=== PATIENT | female | born 1960 | race Caucasian/White ===

== ENCOUNTER 2021-02-05 22:31 | Inpatient (IN) | payer BC, SELFPAY ==
[2021-02-06 01:04] VITALS: BP 165/93; PULSE 90; RESP 16; TEMP 36.3; O2SAT 100
[2021-02-06] MEDS: hydrOXYzine HCL 50 MG TABLET PO ×2 (01:07→09:04)
[2021-02-06] MEDS: diphenhydrAMINE HCL 25 MG TABLET PO (01:07)
[2021-02-06] MEDS: traZODone HCL 50 MG TABLET PO (01:07)
--- NOTE | 2021-02-06 01:47 | PC.ADMIT ---
PT arrived to unit at 22:42 on previous shift. PT is a 60 year old Armenian speaking, Swazi female, who came to this unit from [facility], for increasing anxiety and depression. PT signed a CV before arriving to unit. PT recently discharged (01/21/21)from [facility]. PT oriented to unit and staff, admission assessment completed. MD completed admission orders and medications. PT reports anxiety /10 and depression 8/10, PT states, I am very sick. PT has past medical history of HTN, hponatremia, hypokalcemia, hypercholesterolemia, back surgery and chronic pain. PT given HS meds and prn Atarax and is currently resting with eyes close.
[2021-02-06 06:15] VITALS: BP 156/78; PULSE 80; RESP 16; TEMP 36.1; O2SAT 100
[2021-02-06] MEDS: busPIRone HCl 10 MG TABLET PO (09:04)
[2021-02-06] MEDS: Aspirin Enteric Coated 81 MG TABLET.DR PO (09:04)
[2021-02-06] MEDS: busPIRone HCl 5 MG TABLET PO (09:04)
[2021-02-06 09:05] VITALS: BP 156/78; PULSE 80
[2021-02-06] MEDS: amLODIPine Besylate 5 MG TABLET PO (09:05)
[2021-02-06] MEDS: Atorvastatin Calcium 10 MG TABLET PO (09:05)
[2021-02-06] MEDS: Folic Acid 1 MG TABLET PO (09:05)
[2021-02-06] MEDS: Thiamine HCL 100 MG TABLET PO (09:05)
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
[2021-02-06 16:01] VITALS: BP 130/72; PULSE 89
[2021-02-06] MEDS: cloNIDine HCL 0.1 MG TABLET PO ×2 (16:01→20:45)
[2021-02-06 16:12] VITALS: BP 130/72; PULSE 89; RESP 18; TEMP 36.7; O2SAT 100
--- NOTE | 2021-02-06 17:00 | HO.HSGERICON ---
History of Present Illness Data of Consult Service Date: 02/06/21 Requesting physician: Lowell Hernandez Primary Care Provider: Unknown Physician HPI Reason for consult: outside/direct admission H&P This is a 60 year old female who was transferred from [facility] for management of anxiety and depression. The hospitalists were asked to see her in consultation for routine medical evaluation. She has no specific complaints at this time. She is asking only for a hair tie. Review of Systems Review of Systems: Yes all other systems are reviewed and are negative Constitutional: Constitutional: Denies chills and Denies fever(s) Cardiovascular: Cardiovascular: Denies chest pain Respiratory: Respiratory: Denies cough Gastrointestinal: Gastrointestinal: Denies abdominal pain [facility] Medical History (Updated 02/06/21 @ 17:14 by NOREEN Van) HLD (hyperlipidemia) HTN (hypertension) Hyponatremia Spinal stenosis Functional capacity: independent ambulation Family History Mother CVA (cerebral vascular accident) Surgical History H/O cervical spine surgery Social History (Updated 02/06/21 @ 17:11 by NOREEN Van) Household Members: Spouse and Children Housing: Apartment Do you presently have visiting nurse or other home services: No Alcohol intake: never Patient Tobacco Use Status: Former Tobacco user Tobacco use type: Cigarette Smoked in Last 30 Days: No e-Cigarette/Vaping Use: Never Used Patient Interested in Nicotine Replacement: No Patient Given Instructions on How to Stop Smoking: No Second Hand Smoke Exposure: No Use of substances other than those prescribed or required for medical reasons: No Currently Displaying Signs/Symptoms of Drug Intoxication Withdrawal: No Any prior treatment program specific to substance use: No Have you been hit, kicked, punched, or otherwise hurt by someone within the past year? If so, by whom?: No Do you feel safe in your current relationship?: Yes Is there a partner from a previous relationship who is making you feel unsafe now?: No Are you made to feel afraid or neglected: No Spiritual Healthcare Practices: NA Moravian Healthcare Practices: Buddhist Cultural Healthcare Practices: NA Advance Directives: No Advance Directives Information Provided: Yes Do you have thoughts of harming others: None Do you have a plan to hurt others: No Plan Recently lost weight without trying: Yes How much weight loss: 2-13 pounds Eating poorly because of decreased appetite: Yes Nutrition screen score: 4 Nutrition Risks: Poor intake 0-25% >4 days Patient : No : No Poor oral hygiene: No service: No Sexual orientation: Did not discuss Meds Allergies Allergy/AdvReac Type Severity Reaction Status Date / Time citalopram AdvReac Unknown Verified 02/06/21 00:01 Active Medications: Current Medications Acetaminophen (Acetaminophen 325 Mg Tablet) 650 mg PO Q6H PRN PRN Reason: Headache/Pain Mild Scale (1-3) Al Hydroxide/Mg Hydroxide (Magnesium Hydrox/Alum Hydrox 30 Ml Oral.Susp) 30 ml PO Q6H PRN PRN Reason: Heartburn/Nausea Amlodipine Besylate (Amlodipine Besylate 5 Mg Tablet) 5 mg PO DAILY [facility]; Protocol Last Admin: 02/06/21 09:05 Dose: 5 mg Documented by: Aspirin (Aspirin Enteric Coated 81 Mg Tablet.) 81 mg PO DAILY [facility] Last Admin: 02/06/21 09:04 Dose: 81 mg Documented by: Atorvastatin Calcium (Atorvastatin Calcium 10 Mg Tablet) 10 mg PO DAILY [facility] Last Admin: 02/06/21 09:05 Dose: 10 mg Documented by: Clonidine HCl (Clonidine Hcl 0.1 Mg Tablet) 0.1 mg PO BEDTIME [facility]; Protocol Clonidine HCl (Clonidine Hcl 0.1 Mg Tablet) 0.1 mg PO TID PRN; Protocol PRN Reason: moderate anxiety Last Admin: 02/06/21 16:01 Dose: 0.1 mg Documented by: Folic Acid (Folic Acid 1 Mg Tablet) 1 mg PO DAILY [facility] Last Admin: 02/06/21 09:05 Dose: 1 mg Documented by: Magnesium Hydroxide (Milk Of Magnesia 30 Ml Oral.Susp) 30 ml PO DAILY PRN PRN Reason: Constipation Thiamine HCl (Thiamine Hcl 100 Mg Tablet) 100 mg PO DAILY [facility] Last Admin: 02/06/21 09:05 Dose: 100 mg Documented by: Trazodone HCl (Trazodone Hcl 100 Mg Tablet) 100 mg PO BEDTIME [facility] Trazodone HCl (Trazodone Hcl 50 Mg Tablet) 50 mg PO BEDTIME PRN PRN Reason: continued insomnia Home Medications Medication Instructions Recorded Confirmed Last Taken Type amlodipine 5 mg tablet 5 mg PO DAILY 02/06/21 02/06/21 02/05/21 11:41 History aspirin 81 mg tablet,delayed 1 tab PO DAILY 02/06/21 02/06/21 Unknown History release atorvastatin 10 mg tablet 10 mg PO DAILY 02/06/21 02/06/21 Unknown History buspirone 10 mg tablet 10 mg PO BID 02/06/21 02/06/21 02/05/21 11:41 History 10 mg buspirone 5 mg tablet 1 tab PO BID 02/06/21 02/06/21 Unknown History diphenhydramine HCl 25 mg capsule 25 mg PO BEDTIME PRN 02/06/21 02/06/21 02/05/21 05:57 History (Benadryl) folic acid 1 mg tablet 1 tab PO DAILY 02/06/21 02/06/21 Unknown History hydroxyzine pamoate 50 mg capsule 50 mg PO BID PRN 02/06/21 02/06/21 Unknown History thiamine mononitrate (vit B1) 100 100 mg PO DAILY 02/06/21 02/06/21 Unknown History mg tablet trazodone 50 mg tablet 1 tab PO BEDTIME 02/06/21 02/06/21 Unknown History Assessment and Plan (1) HTN (hypertension): Status: Acute This is a 60-year-old female with history of hypertension, hyperlipidemia, spinal stenosis who presents to from [facility] for further management of anxiety and depression Hypertension Blood pressure under adequate control Continue home dose of amlodipine Hyperlipidemia Continue Lipitor h/o hyponatremia pt reports h/o hyponatremia r/t previous SSRI use. unclear how long ago can consider baseline BMP. would check BMP if starting any medication that can cause hyponatremia There are no active medical conditions at this time. Than you for allowing us to participate in the care of this patient. attending. Dr. Claudio Physical Exam Vital Signs: Last Vital Signs Temp 98.1 F 02/06/21 16:12 Pulse 89 02/06/21 16:12 Resp 18 02/06/21 16:12 BP 130/72 02/06/21 16:12 Pulse Ox 100 02/06/21 16:12 Const General: cooperative, comfortable, no acute distress, alert and awake Nutritional Appearance: well nourished Orientation/consciousness: patient oriented x3 HENMT Head: Yes normocephalic and Yes atraumatic Eyes Sclerae: sclerae normal Pupils: Equal, round and reactive pupils present Resp Effort & Inspection: normal respiratory effort and no respiratory distress Auscultation: clear to auscultation bilaterally Cardio Rate: regular rate Rhythm: regular rhythm GI Palpation (GI): Soft to palpation and nontender Neuro General: patient oriented x3 Cranial nerves: Yes CN's II-XII intact bilaterally, Yes Equal, round and reactive pupils present and Yes Bilaterally intact EOM present Extrem Other: Able to move all 4 extremities spontaneously. No lower extremity edema
[2021-02-06 20:20] VITALS: BP 125/58; PULSE 74; RESP 18; TEMP 36.2; O2SAT 97
[2021-02-06] MEDS: Mirtazapine 7.5 MG TABLET PO (20:45)
[2021-02-06] MEDS: traZODone HCL 100 MG TABLET PO (20:46)
[2021-02-07 06:00] VITALS: BP 101/55; PULSE 61; RESP 16; TEMP 36.5; O2SAT 99
[2021-02-07 08:16] VITALS: BP 101/55; PULSE 61
[2021-02-07] MEDS: Thiamine HCL 100 MG TABLET PO (08:16)
[2021-02-07] MEDS: amLODIPine Besylate 5 MG TABLET PO (08:16)
[2021-02-07] MEDS: Atorvastatin Calcium 10 MG TABLET PO (08:16)
[2021-02-07] MEDS: Aspirin Enteric Coated 81 MG TABLET.DR PO (08:16)
[2021-02-07] MEDS: Folic Acid 1 MG TABLET PO (08:17)
[2021-02-07 08:55] LABS: Anion Gap 15 (12-20); Carbon Dioxide 25 mmol/L (22-29); Chloride 84 mmol/L (96-108); Potassium 3.3 mmol/L (3.3-5.1); Sodium 121 mmol/L (135-145)
[2021-02-07 08:58] LABS: TSH reflex Free T4 1.34 uIU/mL (0.32-4.0)
[2021-02-07 09:34] VITALS: BP 113/53; PULSE 82; RESP 14; O2SAT 100
--- NOTE | 2021-02-07 10:06 | HO.PSYCHPN ---
Subjective Subjective Date of Service: 02/07/21 Reason For Visit: Major Depressive Disorder, PTSD, Recurrent episode Interim History: Patient seen and discussed with team. Patient evaluated this morning and upon interview she reports she feels ?lightheaded and confused,? also says she feels ?weak.? BP 113/53 this morning. Able to ambulate without assistance, no falls. Says she has felt this way since waking up. She reports she slept last night with medication. She was able to eat breakfast, drinking fluids. Of note, Na decreased from 129 on admission to 121, pt has hx of hyponatremia, which in past had been attributed to celexa trial. Says she still has sx of anxiety and depression. She denies AH, but endorses VH, saying ?why do i always see the evil space? Satan and all that?? She denies hx of VH and says this started on admission, prior to recent med changes. She describes herself as yarsani person. Says she feels safe here, denies SI/SIB but say ?I dont wanna be alone in my room? because ?its scary and boring.? In the milieu, patient is safe and appropriate in behavior. Denies irritability or assaultive ideation. Says she feels safe. Medication Compliance: Yes Side effects from medications: Yes Attending Groups: Yes Review of Systems Acute medical concerns: Yes Medical Review of Systems: changed Mental Status Exam Mental Status Exam Narrative: Pt is alert and oriented; behavior is cooperative, friendly and calm; patient is not in distress; dressed in hospital gown with unkempt hair but adequate hygiene; mood is described as weak though affect currently calm; eye contact appropriate; Speech is normal rate, volume and prosody and not pressured; no psychomotor agitation/retardation present; thought process is organized, linear and goal directed; Thought content is on somatic sx, says she feels confused and clouded. Endorsing new sx of VH. otherwise no delusional content, paranoid ideations or grandiosity; denies SI; no HI. Denies AH.? Patients insight and judgment appear intact. Diagnostics Vital Signs (24Hr): Vital Signs - 24 hr 02/06/21 16:01 02/06/21 16:12 02/06/21 20:20 Temperature 98.1 F 97.2 F Pulse Rate 89 89 74 Respiratory Rate 18 18 Blood Pressure 130/72 130/72 125/58 L Pulse Oximetry 100 97 02/07/21 06:00 02/07/21 08:16 02/07/21 09:34 Temperature 97.7 F Pulse Rate 61 61 82 Respiratory Rate 16 14 Blood Pressure 101/55 L 101/55 L 113/53 L Pulse Oximetry 99 100 Labs Results: 02/07/21 12:53 Labs: Laboratory Results - last 48 hr 02/07/21 02/07/21 02/07/21 07:54 07:54 12:53 Sodium 121 L 119 L* Potassium 3.3 3.1 L Chloride 84 L 82 L Carbon Dioxide 25 23 Anion Gap 15 17 BUN 15 Creatinine 0.86 Estim Creat Clear Calc TNP Estimated GFR > 60 Random Glucose 147 H Osmolality Calcium 9.6 TSH 1.34 1.45 02/07/21 12:53 Sodium Potassium Chloride Carbon Dioxide Anion Gap BUN Creatinine Estim Creat Clear Calc Estimated GFR Random Glucose Osmolality 249 L Calcium TSH Medications Allergies Allergies Allergy/AdvReac Type Severity Reaction Status Date / Time citalopram AdvReac Unknown Verified 02/06/21 00:01 Assessment & Plan Assessment & Plan (1) Hyponatremia: Status: Acute Code(s): E87.1 - Hypo-osmolality and hyponatremia (2) LORENZO (generalized anxiety disorder): Status: Acute Code(s): F41.1 - Generalized anxiety disorder Assessment and Plan: Patient is a 60-year-old female with history of severe anxiety, formally well treated with citalopram until it caused hyponatremia, who now presents with extreme anxiety triggering SI.? Patient reports that she was doing quite well on citalopram on until this spring she got hyponatremia and hypokalemia which required hospitalization; she got it again and it was discovered to be caused by citalopram.? -patient current presentation is consistent with her long history of severe anxiety/LORENZO which was well treated with SSRI until it was no longer an option given to repeat episodes of hyponatremia/hypokalemia -Although patient has gone the past 3 days with little to no sleep, it seems most likely due to her anxiety and not due to a manic episode. She is calm and cooperative on the unit and does not have any manic symptoms at all; She interacts with a calm demeanor and her speech is normal volume, prosody and rate, not pressured at all; she is with logical, linear and organized speech and behavior; no grandiosity or delusional content; no AVH; image of devil is only when she closes her eyes at night and patient has insight and judgment to know that this is just her own visual image.? Although she has a history of what sounds like a manic episode this past spring, it coincides with her electrolyte imbalance for which she was hospitalized.? Furthermore patient was on an SSRI without any triggered manic events. -patient's anxiety has gotten to a point where it is triggering suicidal thoughts PLAN: Patient on CV Q 15 minute checks HYPONATREMIA: -patient has mild hyponatremia; will recheck labs in the morning; will also recheck a couple days after medication adjustments ?ANXIETY: -Will start patient on mirtazapine 7.5 mg for anxiety and help with insomnia; account underwriter discussed specific case with clinical pharmacist who agrees that mirtazapine is the least likely of viable options to cause hyponatremia; TCAs less preferred given anticholinergic side-effects -RECHECK lytes in AM -will start clonidine 0.1 mg t.i.d. p.r.n. for daytime anxiety and 0.1 mg at bedtime scheduled for nighttime insomnia/anxiety; patient blood pressures are either within normal limits or elevated -will increase trazodone to 100 mg with a 50 mg p.r.n.; patient reports that trazodone 50 mg has not been helpful and she is desperate for sleep. -will discontinue BuSpar; patient does not want it and is worried it is making her mouth dry -will discontinue hydroxyzine/Benadryl which both are likely causing patient's dry mouth -patient may have done well on Latuda in the past and this can remain an option Weekend Coverage: pt presenting with new sx of confusion, weakness, fatigue. Also reports nausea. Consulted with hospitalist and will transfer to [facility] for management of hyponatremia. Pt reported drinking 4 L of water on 02/06 due to dry mouth. Will discontinue clonidine 0.1 mg QHS and remeron 7.5 mg QHS per hospitalist recommendation. Will continue clonidine 0.1 mg TID PRN for anxiety. Will start seroquel 25 mg TID PRN for breakthrough anxiety. Will continue trazodone 100 mg QHS. I spent minutes with the patient and/or on the patient floor today, greater than?50% of which was spent counseling/coordinating care. Reason for contiued inpatient stay Substantial Risk for: harm to self and med/psych decompensation
--- NOTE | 2021-02-07 12:16 | PM.PSYDC ---
DS: Providers Provider Date of Service: 02/07/21 Date of admission: 02/05/21 22:31 Date of discharge: 02/07/21 Primary care physician: Unknown Physician Admitting clinician: Lowell Hernandez Attending physician on admission: Lowell Hernandez Consults: 02/07/21 13:17 Consult to Nephrology Routine Consulting Provider: Sergio Stephenson Reason for consultation: hyponatremia, sodium 121 Has provider been notified: No 02/07/21 13:33 Consult to Psychiatry Routine Consulting Provider: Psych Covering Reason for consultation: anxiety,depression Has provider been notified: No Attending physician on discharge: Muna Riley Discharging clinician: Muna Riley DS: Diagnosis Discharge Diagnosis (1) Hyponatremia: Start date: 02/07/21 Status: Acute (2) LORENZO (generalized anxiety disorder): Start date: 02/05/21 Status: Acute DS: Medications Discharge Medications Home Medications: Home Medications Medication Instructions Recorded Confirmed amlodipine 5 mg tablet 5 mg PO DAILY 02/06/21 02/07/21 aspirin 81 mg tablet,delayed 1 tab PO DAILY 02/06/21 02/07/21 release atorvastatin 10 mg tablet 10 mg PO DAILY 02/06/21 02/07/21 buspirone 10 mg tablet 10 mg PO BID 02/06/21 02/07/21 buspirone 5 mg tablet 1 tab PO BID 02/06/21 02/07/21 diphenhydramine HCl 25 mg capsule 25 mg PO BEDTIME PRN 02/06/21 02/07/21 (Benadryl) folic acid 1 mg tablet 1 tab PO DAILY 02/06/21 02/07/21 hydroxyzine pamoate 50 mg capsule 50 mg PO BID PRN 02/06/21 02/07/21 thiamine mononitrate (vit B1) 100 100 mg PO DAILY 02/06/21 02/07/21 mg tablet trazodone 50 mg tablet 1 tab PO BEDTIME 02/06/21 02/07/21 Mental Status Exam Mental Status Exam Narrative: Pt is alert and oriented; behavior is cooperative, friendly and calm; patient is not in distress; dressed in hospital gown with unkempt hair but adequate hygiene; mood is described as weak though affect currently calm; eye contact appropriate; Speech is normal rate, volume and prosody and not pressured; no psychomotor agitation/retardation present; thought process is organized, linear and goal directed; Thought content is on somatic sx, says she feels confused and clouded. Endorsing sx of VH at bedtime or when she closes her eyes. otherwise no delusional content, paranoid ideations or grandiosity; denies SI; no HI. Denies AH.? Patients insight and judgment appear intact. Data Data Completed and Pending Completed studies during hospitalization [Text1]: 02/07/21 02/07/21 02/07/21 07:54 07:54 12:53 Sodium 121 L 119 L* Potassium 3.3 3.1 L Chloride 84 L 82 L Carbon Dioxide 25 23 Anion Gap 15 17 BUN 15 Creatinine 0.86 Estim Creat Clear Calc TNP Estimated GFR > 60 Random Glucose 147 H Osmolality Calcium 9.6 TSH 1.34 1.45 02/07/21 12:53 Sodium Potassium Chloride Carbon Dioxide Anion Gap BUN Creatinine Estim Creat Clear Calc Estimated GFR Random Glucose Osmolality 249 L Calcium TSH DS: Summary Hospital Course Hospital Course: Patient is a 60-year-old female who was admitted to [facility] from [facility] on 02/06/21 with sx of extreme anxiety triggering SI.?She has past medical hx of LORENZO, PTSD, HTN, hyperlipidemia, and hyponatremia. Patient reports that she was doing quite well on citalopram until this spring when she got hyponatremia and hypokalemia, which required hospitalization; she got it again and it was discovered to be caused by citalopram.?Per [facility] ED eval, pt reported hyposomnia x 3 days, her OP psychiatrist had discontinued her ativan, seroquel, and hydroxyzine 4 days prior and started her on buspar. She reported worsening anxiety, SI, and VH. Per psych H&P, patient's current presentation is consistent with her long history of severe anxiety/LORENZO which was well treated with SSRI until it was no longer an option given to repeat episodes of hyponatremia/hypokalemia. No hx of manic or hypomanic episodes endorsed and poor sleep appears to be a function of anxiety. Pt was calm and cooperative on the unit, without manic symptoms at all; She interacts with a calm demeanor and her speech is normal volume, prosody and rate, not pressured at all; she is with logical, linear and organized speech and behavior; no grandiosity or delusional content; no AVH; image of linette is only when she closes her eyes at night and patient has insight and judgment to know that this is just her own visual image.?On admission, pt's labs from [facility] ED on 02/05/21 showed sodium level of 129, potassium level 3.5, chloride level 92, carbon dioxide level 28, creatinine 0.69, BUN 6. On admission, pt was started on remeron 7.5 mg QHS, clonidine 0.1 mg QHS and 0.1 mg TID PRN for anxiety, and trazodone was increased to 100 mg QHS. Buspar was discontinued. CMP was re-ordered for morning of 04/10/20, which showed sodium level of 121. Pt was also presenting with new onset of confusion, weakness, fatigue, and nausea. Consulted with hospitalist who recommended repeat CMP and transfer to [facility] for management of hyponatremia. Pt reported drinking 4 L of water on 02/06 due to dry mouth. Pt's clonidine 0.1 mg QHS and remeron 7.5 mg QHS were discontinued per hospitalist recommendation. Will continue clonidine 0.1 mg TID PRN for anxiety. Will start seroquel 25 mg TID PRN for breakthrough anxiety. Will continue trazodone 100 mg QHS with repeat dose of 50 mg QHS 1x for insomnia. Status at Discharge Cognitive/behavioral status at discharge: Pt reporting increased confusion, impaired memory and concentration. Functional status at discharge: independent ambulation Overall status at discharge: patient is not back to baseline Time Spent with Patient Time attestation: Total time spent providing and/or coordinating discharge services: Time spent: Less than 30 minutes Discharge Plan Discharge Patient Disposition: Xfer Acute Care Hospital Discharge Diagnosis: LORENZO Referrals: Physician,Unknown J [Primary Care Provider] - 1 Week Discharge Medications: Continued buspirone 5 mg tablet 1 tab PO BID RF: 0 trazodone 50 mg tablet 1 tab PO BEDTIME RF: 0 aspirin 81 mg tablet,delayed release (DR/EC) 1 tab PO DAILY RF: 0 folic acid 1 mg tablet 1 tab PO DAILY RF: 0 atorvastatin 10 mg Tablet 10 mg PO DAILY RF: 0 hydroxyzine pamoate 50 mg Capsule 50 mg PO BID PRN (Reason: Anxiety) RF: 0 amlodipine 5 mg Tablet 5 mg PO DAILY RF: 0 diphenhydramine HCl [Benadryl] 25 mg Capsule 25 mg PO BEDTIME PRN (Reason: Anxiety) RF: 0 buspirone 10 mg Tablet 10 mg PO BID RF: 0 thiamine mononitrate (vit B1) 100 mg Tablet 100 mg PO DAILY RF: 0 Discharge Orders: Discharge Order (Routine); Ordered 02/07/21 Ordered By: Muna Riley Activity on Discharge: As tolerated Stand Alone Forms: Patient Portal Discharge page Care Plan Goals: Continue with med management Health Concerns: hyponatremia Plan of Treatment: med management, fluid management Assessment: Pt with LORENZO, transferred to [facility] for hyponatremia Discharge Date/Time: 02/07/21 13:34
--- NOTE | 2021-02-07 13:19 | PM.IMHP ---
History of Present Illness Date of Service: 02/07/21 Attending physician on admission: Alhaji Gutiérrez Chief Complaint: hyponatrema, weakness This is a 60-year-old female with history of hypertension, hyperlipidemia, anxiety admitted to for inpatient psychiatric treatment of anxiety and depression. Patient was seen yesterday in consultation a mackenzie for routine medical evaluation. She reported history of hyponatremia in the past secondary to SSRI use. Today routine BMP was checked in her sodium level was noted to be 121. Today she reports she is feeling weak and confused. She has some nausea. For this reason the decision was made to admit her to the medical floor for management of hyponatremia. She reports that yesterday she was feeling thirsty and thinks she she may have had 4 of the acosta pitchers of water. Review of Systems Review of Systems: Yes all other systems are reviewed and are negative Constitutional: Constitutional: Denies chills, Denies fever(s) and Reports lethargy Cardiovascular: Cardiovascular: Denies chest pain Respiratory: Respiratory: Denies cough Gastrointestinal: Gastrointestinal: Denies abdominal pain, Reports nausea and Denies vomiting [facility] Medical History LORENZO (generalized anxiety disorder) HLD (hyperlipidemia) HTN (hypertension) Hyponatremia Spinal stenosis Functional capacity: independent ambulation Family History Mother CVA (cerebral vascular accident) Surgical History H/O cervical spine surgery Social History Household Members: Spouse and Children Housing: Apartment Do you presently have visiting nurse or other home services: No Alcohol intake: never Patient Tobacco Use Status: Former Tobacco user Tobacco use type: Cigarette e-Cigarette/Vaping Use: Never Used Second Hand Smoke Exposure: No service: No Sexual orientation: Did not discuss Meds Allergies Allergy/AdvReac Type Severity Reaction Status Date / Time citalopram AdvReac Unknown Verified 02/06/21 00:01 Active Medications: Current Medications Acetaminophen (Acetaminophen 325 Mg Tablet) 650 mg PO Q6H PRN PRN Reason: Headache/Pain Mild Scale (1-3) Al Hydroxide/Mg Hydroxide (Magnesium Hydrox/Alum Hydrox 30 Ml Oral.Susp) 30 ml PO Q6H PRN PRN Reason: Heartburn/Nausea Amlodipine Besylate (Amlodipine Besylate 5 Mg Tablet) 5 mg PO DAILY [facility]; Protocol Last Admin: 02/07/21 08:16 Dose: 5 mg Documented by: Aspirin (Aspirin Enteric Coated 81 Mg Tablet.) 81 mg PO DAILY [facility] Last Admin: 02/07/21 08:16 Dose: 81 mg Documented by: Atorvastatin Calcium (Atorvastatin Calcium 10 Mg Tablet) 10 mg PO DAILY [facility] Last Admin: 02/07/21 08:16 Dose: 10 mg Documented by: Clonidine HCl (Clonidine Hcl 0.1 Mg Tablet) 0.1 mg PO TID PRN; Protocol PRN Reason: moderate anxiety Last Admin: 02/06/21 16:01 Dose: 0.1 mg Documented by: Docusate Sodium (Docusate Sodium 100 Mg Capsule) 100 mg PO DAILY PRN PRN Reason: Constipation Enoxaparin Sodium (Enoxaparin Sodium 40 Mg/0.4 Ml Syringe) 40 mg SUBCUT Q24H [facility] Folic Acid (Folic Acid 1 Mg Tablet) 1 mg PO DAILY [facility] Last Admin: 02/07/21 08:17 Dose: 1 mg Documented by: Magnesium Hydroxide (Milk Of Magnesia 30 Ml Oral.Susp) 30 ml PO DAILY PRN PRN Reason: Constipation Mirtazapine (Mirtazapine 7.5 Mg Tablet) 7.5 mg PO BEDTIME [facility] Last Admin: 02/06/21 20:45 Dose: 7.5 mg Documented by: Sodium Chloride (0.9 % Sodium Chloride Flush 3 Ml Syringe) [facility] Thiamine HCl (Thiamine Hcl 100 Mg Tablet) 100 mg PO DAILY [facility] Last Admin: 02/07/21 08:16 Dose: 100 mg Documented by: Trazodone HCl (Trazodone Hcl 100 Mg Tablet) 100 mg PO BEDTIME [facility] Last Admin: 02/06/21 20:46 Dose: 100 mg Documented by: Trazodone HCl (Trazodone Hcl 50 Mg Tablet) 50 mg PO BEDTIME PRN PRN Reason: continued insomnia Home Medications Medication Instructions Recorded Confirmed Last Taken Type amlodipine 5 mg tablet 5 mg PO DAILY 02/06/21 02/06/21 02/05/21 11:41 History aspirin 81 mg tablet,delayed 1 tab PO DAILY 02/06/21 02/06/21 Unknown History release atorvastatin 10 mg tablet 10 mg PO DAILY 02/06/21 02/06/21 Unknown History buspirone 10 mg tablet 10 mg PO BID 02/06/21 02/06/21 02/05/21 11:41 History 10 mg buspirone 5 mg tablet 1 tab PO BID 02/06/21 02/06/21 Unknown History diphenhydramine HCl 25 mg capsule 25 mg PO BEDTIME PRN 02/06/21 02/06/21 02/05/21 05:57 History (Benadryl) folic acid 1 mg tablet 1 tab PO DAILY 02/06/21 02/06/21 Unknown History hydroxyzine pamoate 50 mg capsule 50 mg PO BID PRN 02/06/21 02/06/21 Unknown History thiamine mononitrate (vit B1) 100 100 mg PO DAILY 02/06/21 02/06/21 Unknown History mg tablet trazodone 50 mg tablet 1 tab PO BEDTIME 02/06/21 02/06/21 Unknown History Physical Exam Vital Signs and Narrative: Vital Signs: Last Vital Signs Temp 97.7 F 02/07/21 06:00 Pulse 82 02/07/21 09:34 Resp 14 02/07/21 09:34 BP 113/53 L 02/07/21 09:34 Pulse Ox 100 02/07/21 09:34 Const: General: cooperative, comfortable, no acute distress, awake and Physically active Nutritional Appearance: well nourished HENMT: Head: Yes normocephalic and Yes atraumatic Mouth: moist mucous membranes Eyes: Sclerae: sclerae normal Resp: Effort & Inspection: normal respiratory effort and no respiratory distress Cardio: Rate: regular rate Rhythm: regular rhythm Neuro: Cranial nerves: Yes CN's II-XII intact bilaterally and Yes Bilaterally intact EOM present Extrem: Other: no leg edema Results Labs CBC and Chem 7: 02/07/21 12:53 Labs: Laboratory Results - last 24 hr 02/07/21 02/07/21 07:54 07:54 Anion Gap 15 TSH 1.34 Assessment and Plan (1) Hyponatremia: Status: Acute This is a 60-year-old female with history of hypertension, hyperlipidemia, history of hyponatremia, just admitted to inpatient psychiatric 4 for management of anxiety depression found to have hyponatremia with sodium of 121 now being transferred to medical floor for further management Hyponatremia, sodium 121 Will repeat basic metabolic profile now Check TSH Check urine studies Nephrology consult Frequent BMP checks Hypertension mood continue current meds from including Quality VTE VTE Risk Level:: Medical - moderate - high VTE Device Contraindication: N/A - Device Ordered VTE Drug Contraindication: N/A - Med Ordered
[2021-02-07 13:38] LABS: Osmolality, Serum 249 mosm/kg (281-305)
[2021-02-07 13:41] LABS: Blood Urea Nitrogen 15 mg/dL (9-16); Calcium 9.6 mg/dL (8.4-10.2); Estimated Glomerular Filt Rate > 60; Glucose Random 147 mg/dL (60-115)
[2021-02-07 13:50] LABS: Thyroid Stimulating Hormone 1.45 uIU/mL (0.32-4.0)
[2021-02-07 14:03] LABS: Anion Gap 17 (12-20); Carbon Dioxide 23 mmol/L (22-29); Chloride 82 mmol/L (96-108); Potassium 3.1 mmol/L (3.3-5.1); Sodium 119 mmol/L (135-145)
[2021-02-07 15:08] VITALS: BP 126/89; PULSE 69; RESP 18; TEMP 36.9; O2SAT 100
--- NOTE | 2021-02-10 12:11 | P.DS_ITS ---
DS: Providers Provider Date of admission: 02/05/21 22:31 Primary care physician: Unknown Physician Consults: 02/07/21 13:17 Consult to Nephrology Routine Consulting Provider: Sergio Stephenson Reason for consultation: hyponatremia, sodium 121 Has provider been notified: No 02/07/21 13:33 Consult to Psychiatry Routine Consulting Provider: Psych Covering Reason for consultation: anxiety,depression Has provider been notified: No DS: Diagnosis Discharge Diagnosis (1) Hyponatremia: Status: Acute (2) LORENZO (generalized anxiety disorder): Status: Acute DS: Summary Time Spent with Patient Time attestation: Total time spent providing and/or coordinating discharge services: Physical Exam Vital Signs: Vital Signs: Last Vital Signs Temp 98.5 F 02/07/21 15:08 Pulse 69 02/07/21 15:08 Resp 18 02/07/21 15:08 BP 126/89 02/07/21 15:08 Pulse Ox 100 02/07/21 15:08 Discharge Plan Discharge Patient Disposition: Replaced By [facility] Discharge Diagnosis: LORENZO Referrals: Physician,Unknown J [Primary Care Provider] - 1 Week Discharge Medications: Continued buspirone 5 mg tablet 1 tab PO BID RF: 0 trazodone 50 mg tablet 1 tab PO BEDTIME RF: 0 aspirin 81 mg tablet,delayed release (DR/EC) 1 tab PO DAILY RF: 0 folic acid 1 mg tablet 1 tab PO DAILY RF: 0 atorvastatin 10 mg Tablet 10 mg PO DAILY RF: 0 hydroxyzine pamoate 50 mg Capsule 50 mg PO BID PRN (Reason: Anxiety) RF: 0 amlodipine 5 mg Tablet 5 mg PO DAILY RF: 0 diphenhydramine HCl [Benadryl] 25 mg Capsule 25 mg PO BEDTIME PRN (Reason: Anxiety) RF: 0 buspirone 10 mg Tablet 10 mg PO BID RF: 0 thiamine mononitrate (vit B1) 100 mg Tablet 100 mg PO DAILY RF: 0 Discharge Orders: Discharge Order (Routine); Ordered 02/07/21 Ordered By: Muna Riley Activity on Discharge: As tolerated Stand Alone Forms: Patient Portal Discharge page Care Plan Goals: Continue with med management Health Concerns: hyponatremia Plan of Treatment: med management, fluid management Assessment: Pt with LORENZO, transferred to [facility] for hyponatremia Discharge Date/Time: 02/07/21 13:34
== END 2021-02-07 13:34 | disposition short-term general hospital (02) | DRG 756 ==
PROVIDERS: Physician Assistant Medical; Admitting Provider Psychiatry & Neurology Psychiatry; Visit Provider Psychiatry & Neurology Psychiatry
DX: F41.1 Generalized anxiety disorder (principal); R45.851 Suicidal ideations; E87.1 Hypo-osmolality and hyponatremia; I10 Essential (primary) hypertension; E78.5 Hyperlipidemia, unspecified; F43.10 Post-traumatic stress disorder, unspecified; Z79.82 Long term (current) use of aspirin; Z79.891 Long term (current) use of opiate analgesic; Z79.899 Other long term (current) drug therapy
CPT/HCPCS: 36415; 80048; 80051; 83930; 84443; Q0163

== ENCOUNTER 2021-02-07 13:15 | Inpatient (IN) | payer BC, SELFPAY ==
--- NOTE | 2021-02-07 13:56 | P.HPHOSP_ITS ---
History of Present Illness Date of Service: 02/07/21 Attending physician on admission: Alhaji Gutiérrez Chief Complaint: weakness, hyponatremia This is a 60-year-old female with history of hypertension, hyperlipidemia, anxiety admitted to for inpatient psychiatric treatment of anxiety and depression.? Patient was seen yesterday in consultation a mackenzie for routine medical evaluation.? She reported history of hyponatremia in the past secondary to SSRI use.? Today routine BMP was checked in her sodium level was noted to be 121.? Today she reports she is feeling weak and confused.? She has some nausea.? For this reason the decision was made to admit her to the medical floor for management of hyponatremia.? She reports that yesterday she was feeling thirsty and thinks she she may have had 4 of the acosta pitchers of water. Review of Systems Review of Systems: Yes all other systems are reviewed and are negative Constitutional: Constitutional: Denies chills, Denies fever(s) and Reports lethargy Cardiovascular: Cardiovascular: Denies chest pain Respiratory: Respiratory: Denies cough Gastrointestinal: Gastrointestinal: Denies abdominal pain and Reports nausea [facility] Medical History LORENZO (generalized anxiety disorder) HLD (hyperlipidemia) HTN (hypertension) Hyponatremia Spinal stenosis Functional capacity: independent ambulation Family History Mother CVA (cerebral vascular accident) Surgical History H/O cervical spine surgery Social History Household Members: Spouse and Children Housing: Apartment Do you presently have visiting nurse or other home services: No Alcohol intake: never Patient Tobacco Use Status: Former Tobacco user Tobacco use type: Cigarette e-Cigarette/Vaping Use: Never Used Second Hand Smoke Exposure: No Advance Directives: No Advance Directives Information Provided: Yes service: No Current occupational status: disabled Sexual orientation: Did not discuss Meds Allergies Allergy/AdvReac Type Severity Reaction Status Date / Time citalopram AdvReac Unknown Verified 02/06/21 00:01 Home Medications Medication Instructions Recorded Confirmed Last Taken Type amlodipine 5 mg tablet 5 mg PO DAILY 02/06/21 02/07/21 02/05/21 11:41 History aspirin 81 mg tablet,delayed 1 tab PO DAILY 02/06/21 02/07/21 Unknown History release atorvastatin 10 mg tablet 10 mg PO DAILY 02/06/21 02/07/21 Unknown History buspirone 10 mg tablet 10 mg PO BID 02/06/21 02/07/21 02/05/21 11:41 History 10 mg buspirone 5 mg tablet 1 tab PO BID 02/06/21 02/07/21 Unknown History diphenhydramine HCl 25 mg capsule 25 mg PO BEDTIME PRN 02/06/21 02/07/21 02/05/21 05:57 History (Benadryl) folic acid 1 mg tablet 1 tab PO DAILY 02/06/21 02/07/21 Unknown History hydroxyzine pamoate 50 mg capsule 50 mg PO BID PRN 02/06/21 02/07/21 Unknown History thiamine mononitrate (vit B1) 100 100 mg PO DAILY 02/06/21 02/07/21 Unknown History mg tablet trazodone 50 mg tablet 1 tab PO BEDTIME 02/06/21 02/07/21 Unknown History Physical Exam Const: Nutritional Appearance: well nourished Orientation/consciousness: patient oriented x3 HENMT: Head: Yes normocephalic and Yes atraumatic Eyes: Sclerae: sclerae normal Resp: Effort & Inspection: normal respiratory effort and no respiratory distress Cardio: Rate: regular rate Rhythm: regular rhythm GI: Palpation (GI): Soft to palpation and nontender Neuro: General: patient oriented x3 Cranial nerves: Yes CN's II-XII intact bilaterally and Yes Bilaterally intact EOM present Assessment and Plan (1) Hyponatremia: Status: Acute This is a 60-year-old female with history of hypertension, hyperlipidemia, history of hyponatremia, just admitted to inpatient psychiatric 4 for management of anxiety depression found to have hyponatremia with sodium of 121 now being transferred to medical floor for further management Hyponatremia, sodium 121 Appears euvolemic, reports drinking 4L fluid yesterday Will repeat basic metabolic profile now Fluid restriction for now Check TSH Check urine studies Nephrology consult Frequent BMP checks Hypertension continue norvasc HLD continue statin mood psych consult for med management dvt ppx - lovenox code status - full code attending: dr. varghese Quality Stroke Does the patient have a stroke diagnosis?: No VTE Prior VTE?: No VTE Risk Level:: Medical - moderate - high VTE Device Contraindication: N/A - Device Ordered VTE Drug Contraindication: N/A - Med Ordered
--- NOTE | 2021-02-07 13:58 | MHC.CM.PN ---
CM met with Patient at bedside.Patient lives in an apartment with her and 22 year old Son and her goal is to return home/no services. CM has initiated and will follow for dc planning.PCP is Dr. Jamie Reyes.
[2021-02-07 14:08] VITALS: BP 122/56; PULSE 67; RESP 18; TEMP 36.5; O2SAT 99
[2021-02-07] MEDS: Potassium Chloride Packet 20 MEQ PACKET 40 MEQ PO (14:18)
[2021-02-07] MEDS: 0.9 % Sodium Chloride 1,000 ML 100 ML IVCONT (14:19)
[2021-02-07 14:43] VITALS: BMI 20.5
[2021-02-07] MEDS: Enoxaparin Sodium 40 MG/0.4 ML SYRINGE SUBCUT (15:58)
[2021-02-07 16:00] VITALS: BP 116/56; PULSE 61; RESP 18; TEMP 36.6; O2SAT 100
[2021-02-07 17:20] LABS: Anion Gap 16 (12-20); Blood Urea Nitrogen 14 mg/dL (9-16); Calcium 9.5 mg/dL (8.4-10.2); Carbon Dioxide 23 mmol/L (22-29); Chloride 92 mmol/L (96-108); Creatinine Clr Calc Pharmacy 61.6; Estimated Glomerular Filt Rate > 60; Glucose Random 96 mg/dL (60-115); Magnesium 2.3 mg/dL (1.6-2.6); Potassium 3.7 mmol/L (3.3-5.1); Sodium 127 mmol/L (135-145)
[2021-02-07] MEDS: Dextrose 5 % 1,000 ML 75 ML IVCONT (18:21)
[2021-02-07 18:31] LABS: Sodium Urine Random < 20.0 mmol/L
[2021-02-07 18:52] LABS: Osmolality Urine 93 mosm/kg (373-1093)
[2021-02-07 19:23] VITALS: BP 127/59; PULSE 61; RESP 18; TEMP 36.5; O2SAT 100
[2021-02-07 19:25] LABS: Anion Gap 15 (12-20); Blood Urea Nitrogen 13 mg/dL (9-16); Calcium 9.3 mg/dL (8.4-10.2); Carbon Dioxide 24 mmol/L (22-29); Chloride 93 mmol/L (96-108); Creatinine Clr Calc Pharmacy 55.7; Estimated Glomerular Filt Rate > 60; Glucose Random 158 mg/dL (60-115); Potassium 3.6 mmol/L (3.3-5.1); Sodium 128 mmol/L (135-145)
[2021-02-07] MEDS: Melatonin 3 MG TABLET 6 MG PO (21:24)
[2021-02-07 23:17] LABS: Anion Gap 13 (12-20); Blood Urea Nitrogen 12 mg/dL (9-16); Calcium 9.2 mg/dL (8.4-10.2); Carbon Dioxide 24 mmol/L (22-29); Chloride 94 mmol/L (96-108); Creatinine Clr Calc Pharmacy 63.3; Estimated Glomerular Filt Rate > 60; Glucose Random 114 mg/dL (60-115); Potassium 3.7 mmol/L (3.3-5.1); Sodium 127 mmol/L (135-145)
[2021-02-08] VITALS (8 sets, daily range): BP systolic 113–132; BP diastolic 50–73; PULSE 61–69; RESP 18; TEMP 36.2–37.1; O2SAT 97–100
[2021-02-08] MEDS: 0.9 % Sodium Chloride Flush 3 ML SYRINGE IVFLUSH ×3 (00:16→20:25)
[2021-02-08 04:35] LABS: Anion Gap 12 (12-20); Blood Urea Nitrogen 11 mg/dL (9-16); Calcium 9.5 mg/dL (8.4-10.2); Carbon Dioxide 26 mmol/L (22-29); Chloride 95 mmol/L (96-108); Creatinine Clr Calc Pharmacy 58.6; Estimated Glomerular Filt Rate > 60; Glucose Random 120 mg/dL (60-115); Potassium 4.3 mmol/L (3.3-5.1); Sodium 129 mmol/L (135-145)
[2021-02-08 07:06] LABS: MANUAL DIFF FLAG NO
[2021-02-08 07:12] LABS: Basophils Percent Auto 0.3 % (0-2); Eosinophils Percent Auto 0.3 % (0-4); Hematocrit 37.9 % (37.0-47.0); Hemoglobin 13.2 g/dl (12.0-16.0); Lymphocytes Absolute Auto 1.2 X10*3/uL (1.2-4.9); Lymphocytes Percent Auto 31.6 % (20-40); Mean Corpuscular HGB Conc 34.8 g/dl (31.0-35.0); Mean Corpuscular Hemoglobin 30.1 pg (27.0-33.0); Mean Corpuscular Volume 86.3 fL (80.0-98.0); Mean Platelet Volume 11.2 fL (9.4-12.3); Monocytes Absolute Auto 0.6 X10*3/uL (0.1-1.2); Monocytes Percent Auto 16.2 % (2-11); Neutrophils Percent Auto 51.6 % (45-73); Platelet Count 230 X10*3/uL (160-400); Red Blood Count 4.39 X10*6/uL (4.20-5.50); Red Cell Distribution Width 12.4 % (11.0-16.0); White Blood Count 3.8 X10*3/uL (4.8-10.8)
[2021-02-08 07:24] LABS: Anion Gap 13 (12-20); Blood Urea Nitrogen 10 mg/dL (9-16); Calcium 9.2 mg/dL (8.4-10.2); Carbon Dioxide 26 mmol/L (22-29); Chloride 94 mmol/L (96-108); Creatinine Clr Calc Pharmacy 61.6; Estimated Glomerular Filt Rate > 60; Glucose Random 109 mg/dL (60-115); Potassium 3.9 mmol/L (3.3-5.1); Sodium 129 mmol/L (135-145)
[2021-02-08 07:26] LABS: Anion Gap 13 (12-20); Blood Urea Nitrogen 10 mg/dL (9-16); Calcium 9.4 mg/dL (8.4-10.2); Carbon Dioxide 26 mmol/L (22-29); Chloride 94 mmol/L (96-108); Creatinine Clr Calc Pharmacy 63.3; Estimated Glomerular Filt Rate > 60; Glucose Random 111 mg/dL (60-115); Sodium 129 mmol/L (135-145)
[2021-02-08] MEDS: Dextrose 5 % 1,000 ML 75 ML IVCONT (09:33)
[2021-02-08] MEDS: Atorvastatin Calcium 10 MG TABLET PO (09:36)
[2021-02-08] MEDS: amLODIPine Besylate 5 MG TABLET PO (09:36)
[2021-02-08] MEDS: Aspirin Enteric Coated 81 MG TABLET.DR PO (09:36)
[2021-02-08] MEDS: Folic Acid 1 MG TABLET PO (09:37)
[2021-02-08] MEDS: Thiamine HCL 100 MG TABLET PO (09:37)
--- NOTE | 2021-02-08 09:59 | P.PNNP_ITS ---
Subjective Subjective Date of Service: 02/08/21 Interval history: Patient seen and examined Physical Exam Vital Signs: Vital Signs: Last Vital Signs Temp 98.5 F 02/08/21 07:53 Pulse 67 02/08/21 09:36 Resp 18 02/08/21 07:53 BP 113/56 L 02/08/21 09:36 Pulse Ox 100 02/08/21 07:53 BMI result Body Mass Index 20.5 Objective Data Labs CBC & Chem 7: 02/08/21 06:37 02/08/21 06:37 Labs: Laboratory Results - last 24 hr 02/07/21 02/07/21 02/07/21 16:42 17:53 17:53 WBC RBC Hgb Hct MCV MCH MCHC RDW Plt Count MPV Immature Gran % (Auto) Neut % (Auto) Lymph % (Auto) [place] % (Auto) Eos % (Auto) Baso % (Auto) Lymph # (Auto) [place] # (Auto) Eos # (Auto) Baso # (Auto) Abs Immat Gran (auto) Absolute Neuts (auto) Absolute Nucleated RBC Nucleated RBC % (auto) Sodium 127 L Potassium 3.7 Chloride 92 L Carbon Dioxide 23 Anion Gap 16 BUN 14 Creatinine 0.75 Estim Creat Clear Calc 61.6 Estimated GFR > 60 Random Glucose 96 Calcium 9.5 Magnesium 2.3 Urine Osmolality 93 L Ur Random Sodium < 20.0 02/07/21 02/07/21 02/08/21 18:36 22:51 04:16 WBC RBC Hgb Hct MCV MCH MCHC RDW Plt Count MPV Immature Gran % (Auto) Neut % (Auto) Lymph % (Auto) [place] % (Auto) Eos % (Auto) Baso % (Auto) Lymph # (Auto) [place] # (Auto) Eos # (Auto) Baso # (Auto) Abs Immat Gran (auto) Absolute Neuts (auto) Absolute Nucleated RBC Nucleated RBC % (auto) Sodium 128 L 127 L 129 L Potassium 3.6 3.7 4.3 Chloride 93 L 94 L 95 L Carbon Dioxide 24 24 26 Anion Gap 15 13 12 BUN 13 12 11 Creatinine 0.83 0.73 0.79 Estim Creat Clear Calc 55.7 63.3 58.6 Estimated GFR > 60 > 60 > 60 Random Glucose 158 H 114 120 H Calcium 9.3 9.2 9.5 Magnesium Urine Osmolality Ur Random Sodium 02/08/21 02/08/21 02/08/21 06:37 06:37 06:37 WBC 3.8 L RBC 4.39 Hgb 13.2 Hct 37.9 MCV 86.3 MCH 30.1 MCHC 34.8 RDW 12.4 Plt Count 230 MPV 11.2 Immature Gran % (Auto) 0.0 Neut % (Auto) 51.6 Lymph % (Auto) 31.6 [place] % (Auto) 16.2 H Eos % (Auto) 0.3 Baso % (Auto) 0.3 Lymph # (Auto) 1.2 [place] # (Auto) 0.6 Eos # (Auto) 0.0 Baso # (Auto) 0.0 Abs Immat Gran (auto) 0.00 Absolute Neuts (auto) 2.0 Absolute Nucleated RBC 0.000 Nucleated RBC % (auto) 0.0 Sodium 129 L 129 L Potassium 4.0 3.9 Chloride 94 L 94 L Carbon Dioxide 26 26 Anion Gap 13 13 BUN 10 10 Creatinine 0.73 0.75 Estim Creat Clear Calc 63.3 61.6 Estimated GFR > 60 > 60 Random Glucose 111 109 Calcium 9.4 9.2 Magnesium Urine Osmolality Ur Random Sodium Procedures Date of Service Date of Service: 02/08/21 Assessment & Plan Assessment and plan (1) Hyponatremia: Status: Acute Assessment and Plan: hypotonic euvolemic hyponatremia multifactorial: -excessive free water intake -decrease olute excretion -high ADH due to medication REC avoid more than 8 meq correction in 24 hours goal Sna 127 at noon time today D5W 100 cc/hr for now if Sna < 128 at noon discontinue D5W and implement fluid restriction follow sodium level Thank you Time Spent With Patient Time: Total time spent is greater than 50% in coordination of care (as documented) at patient's floor/unit and/or counseling patient: Progress Note: Quality Stroke Does the patient have a stroke diagnosis?: No
--- NOTE | 2021-02-08 12:14 | HO.PM.IMPN ---
Subjective Subjective Date of Service: 02/08/21 <NOREEN Van - Last Filed: 02/08/21 12:20> 02/09/21 <Casimiro Foote MD - Last Filed: 02/09/21 09:06> Interval History: Seen and examined this morning Follow-up for hyponatremia Reporting some dizziness otherwise feeling better compared to yesterday No abdominal pain, nausea, vomiting <NOREEN Van - Last Filed: 02/08/21 12:20> Review of Systems Review of Systems: Yes all other systems are reviewed and are negative <NOREEN Van - Last Filed: 02/08/21 12:20> Constitutional Constitutional: Denies chills and Denies fever(s) <NOREEN Van - Last Filed: 02/08/21 12:20> Cardiovascular Cardiovascular: Denies chest pain <NOREEN Van - Last Filed: 02/08/21 12:20> Respiratory Respiratory: Denies cough <NOREEN Van - Last Filed: 02/08/21 12:20> Gastrointestinal Gastrointestinal: Denies abdominal pain <NOREEN Van - Last Filed: 02/08/21 12:20> Physical Exam Vital Signs: Vital Signs: Last Vital Signs Temp 97.3 F 02/08/21 12:00 Pulse 64 02/08/21 12:00 Resp 18 02/08/21 12:00 BP 121/66 02/08/21 12:00 Pulse Ox 99 02/08/21 12:00 BMI result Body Mass Index 20.5 <NOREEN Van - Last Filed: 02/08/21 12:20> Const: Nutritional Appearance: well nourished <NOREEN Van - Last Filed: 02/08/21 12:20> Orientation/consciousness: patient oriented x3 <NOREEN Vna - Last Filed: 02/08/21 12:20> HENMT: Head: Yes normocephalic and Yes atraumatic <NOREEN Van - Last Filed: 02/08/21 12:20> Eyes: Sclerae: sclerae normal <NOREEN Van - Last Filed: 02/08/21 12:20> Resp: Effort & Inspection: normal respiratory effort and no respiratory distress <NOREEN Van Last Filed: 02/08/21 12:20> Cardio: Rate: regular rate <NOREEN Van - Last Filed: 02/08/21 12:20> Rhythm: regular rhythm <NOREEN Van - Last Filed: 02/08/21 12:20> GI: Palpation (GI): Soft to palpation and nontender <NOREEN Van - Last Filed: 02/08/21 12:20> Neuro: General: patient oriented x3 <NOREEN Van Last Filed: 02/08/21 12:20> Cranial nerves: Yes CN's II-XII intact bilaterally and Yes Bilaterally intact EOM present <NOREEN Van Last Filed: 02/08/21 12:20> Objective Data Active Medications Acetaminophen (Acetaminophen 325 Mg Tablet) 650 mg PO Q6H PRN PRN Reason: Pain, Mild (Pain Scale 1-3) Amlodipine Besylate (Amlodipine Besylate 5 Mg Tablet) 5 mg PO DAILY [facility]; Protocol Last Admin: 02/08/21 09:36 Dose: 5 mg Documented by: JAMA Aspirin (Aspirin Enteric Coated 81 Mg Tablet.) 81 mg PO DAILY [facility] Last Admin: 02/08/21 09:36 Dose: 81 mg Documented by: JAMA Atorvastatin Calcium (Atorvastatin Calcium 10 Mg Tablet) 10 mg PO DAILY [facility] Last Admin: 02/08/21 09:36 Dose: 10 mg Documented by: JAMA Docusate Sodium (Docusate Sodium 100 Mg Capsule) 100 mg PO DAILY PRN PRN Reason: Constipation Enoxaparin Sodium (Enoxaparin Sodium 40 Mg/0.4 Ml Syringe) 40 mg SUBCUT Q24H [facility] Last Admin: 02/07/21 15:58 Dose: 40 mg Documented by: ABBY Folic Acid (Folic Acid 1 Mg Tablet) 1 mg PO DAILY [facility] Last Admin: 02/08/21 09:37 Dose: 1 mg Documented by: JAMA Dextrose (D5w) 1,000 mls @ 75 mls/hr IVCONT .[id number] [facility] Last Admin: 02/08/21 09:33 Dose: 75 mls/hr Documented by: JAMA Melatonin (Melatonin 3 Mg Tablet) 6 mg PO BEDTIME PRN PRN Reason: Insomnia Last Admin: 02/07/21 21:24 Dose: 6 mg Documented by: ABBY Sodium Chloride (0.9 % Sodium Chloride Flush 3 Ml Syringe) 3 ml IVFLUSH QSHIFT [facility] Last Admin: 02/08/21 09:26 Dose: Not Given Documented by: JAMA Non-Admin Reason: IV Running Thiamine HCl (Thiamine Hcl 100 Mg Tablet) 100 mg PO DAILY [facility] Last Admin: 02/08/21 09:37 Dose: 100 mg Documented by: JAMA <NOREEN Van - Last Filed: 02/08/21 12:20> Labs CBC & Chem 7: : 02/08/21 06:37 02/09/21 05:35 <NOREEN Van - Last Filed: 02/08/21 12:20> Labs: Laboratory Results - last 24 hr 02/07/21 02/07/21 02/07/21 16:42 17:53 17:53 MCV MCH MCHC RDW Plt Count MPV Immature Gran % (Auto) Neut % (Auto) Lymph % (Auto) [place] % (Auto) Eos % (Auto) Baso % (Auto) Lymph # (Auto) [place] # (Auto) Eos # (Auto) Baso # (Auto) Abs Immat Gran (auto) Absolute Neuts (auto) Absolute Nucleated RBC Nucleated RBC % (auto) Anion Gap 16 Estim Creat Clear Calc 61.6 Estimated GFR > 60 Random Glucose 96 Calcium 9.5 Magnesium 2.3 Urine Osmolality 93 L Ur Random Sodium < 20.0 02/07/21 02/07/21 02/08/21 18:36 22:51 04:16 MCV MCH MCHC RDW Plt Count MPV Immature Gran % (Auto) Neut % (Auto) Lymph % (Auto) [place] % (Auto) Eos % (Auto) Baso % (Auto) Lymph # (Auto) [place] # (Auto) Eos # (Auto) Baso # (Auto) Abs Immat Gran (auto) Absolute Neuts (auto) Absolute Nucleated RBC Nucleated RBC % (auto) Anion Gap 15 13 12 Estim Creat Clear Calc 55.7 63.3 58.6 Estimated GFR > 60 > 60 > 60 Random Glucose 158 H 114 120 H Calcium 9.3 9.2 9.5 Magnesium Urine Osmolality Ur Random Sodium 02/08/21 02/08/21 02/08/21 06:37 06:37 06:37 MCV 86.3 MCH 30.1 MCHC 34.8 RDW 12.4 Plt Count 230 MPV 11.2 Immature Gran % (Auto) 0.0 Neut % (Auto) 51.6 Lymph % (Auto) 31.6 [place] % (Auto) 16.2 H Eos % (Auto) 0.3 Baso % (Auto) 0.3 Lymph # (Auto) 1.2 [place] # (Auto) 0.6 Eos # (Auto) 0.0 Baso # (Auto) 0.0 Abs Immat Gran (auto) 0.00 Absolute Neuts (auto) 2.0 Absolute Nucleated RBC 0.000 Nucleated RBC % (auto) 0.0 Anion Gap 13 13 Estim Creat Clear Calc 63.3 61.6 Estimated GFR > 60 > 60 Random Glucose 111 109 Calcium 9.4 9.2 Magnesium Urine Osmolality Ur Random Sodium <NOREEN Van - Last Filed: 02/08/21 12:20> Assessment and Plan (1) Hyponatremia: Status: Acute <NOREEN Van - Last Filed: 02/08/21 12:20> Assessment and Plan: This is a 60-year-old female with history of hypertension, hyperlipidemia, history of hyponatremia, just admitted to inpatient psychiatric 4 for management of anxiety depression found to have hyponatremia with sodium of 121 now being transferred to medical floor for further management Hyponatremia Na 128 this am urine studies c/w excessive free water intake will continue D5w, repeat sodium at noon with goal sodium of 127 if sodium under 128, will d/c fluid and start fluid restriction follow sodium level nephrology following anxiety initially admitted to inpatient psych for management of anxiety psych consult Hypertension continue norvasc HLD continue statin mood psych consult for med management dvt ppx - lovenox code status - full code attending: dr. foote dispo - plan to return to inpatient psych, likely in am <NOREEN Van - Last Filed: 02/08/21 12:20> Quality Stroke Does the patient have a stroke diagnosis?: No <NOREEN Van - Last Filed: 02/08/21 12:20> VTE Prior VTE?: No <NOREEN Van - Last Filed: 02/08/21 12:20> VTE Risk Level:: Medical - moderate - high <NOREEN Van - Last Filed: 02/08/21 12:20> VTE Device Contraindication: N/A - Device Ordered <NOREEN Van - Last Filed: 02/08/21 12:20> VTE Drug Contraindication: N/A - Med Ordered <NOREEN Van - Last Filed: 02/08/21 12:20>
[2021-02-08 13:27] LABS: Anion Gap 12 (12-20); Blood Urea Nitrogen 12 mg/dL (9-16); Calcium 9.3 mg/dL (8.4-10.2); Carbon Dioxide 25 mmol/L (22-29); Chloride 94 mmol/L (96-108); Creatinine Clr Calc Pharmacy 64.3; Estimated Glomerular Filt Rate > 60; Glucose Random 92 mg/dL (60-115); Potassium 3.9 mmol/L (3.3-5.1); Sodium 127 mmol/L (135-145)
[2021-02-08] MEDS: Enoxaparin Sodium 40 MG/0.4 ML SYRINGE SUBCUT (17:04)
[2021-02-08 18:33] LABS: Anion Gap 13 (12-20); Blood Urea Nitrogen 14 mg/dL (9-16); Calcium 9.3 mg/dL (8.4-10.2); Carbon Dioxide 26 mmol/L (22-29); Chloride 94 mmol/L (96-108); Estimated Glomerular Filt Rate > 60; Glucose Random 137 mg/dL (60-115); Potassium 3.5 mmol/L (3.3-5.1); Sodium 129 mmol/L (135-145)
[2021-02-08] MEDS: Melatonin 3 MG TABLET 6 MG PO (20:21)
[2021-02-09 03:50] VITALS: BP 154/66; PULSE 67; RESP 18; TEMP 36.9; O2SAT 99
[2021-02-09] MEDS: traZODone HCL 25 MG HALFTAB PO (04:45)
[2021-02-09 06:25] LABS: Anion Gap 12 (12-20); Blood Urea Nitrogen 13 mg/dL (9-16); Calcium 9.4 mg/dL (8.4-10.2); Carbon Dioxide 27 mmol/L (22-29); Chloride 95 mmol/L (96-108); Creatinine Clr Calc Pharmacy 63.3; Estimated Glomerular Filt Rate > 60; Glucose Random 120 mg/dL (60-115); Potassium 3.7 mmol/L (3.3-5.1); Sodium 130 mmol/L (135-145)
[2021-02-09 07:32] VITALS: BP 125/58; PULSE 61; RESP 18; TEMP 36.6; O2SAT 99
[2021-02-09] MEDS: 0.9 % Sodium Chloride Flush 3 ML SYRINGE IVFLUSH (09:09)
[2021-02-09 09:10] VITALS: BP 125/58; PULSE 61
[2021-02-09] MEDS: Folic Acid 1 MG TABLET PO (09:10)
[2021-02-09] MEDS: Thiamine HCL 100 MG TABLET PO (09:10)
[2021-02-09] MEDS: Atorvastatin Calcium 10 MG TABLET PO (09:10)
[2021-02-09] MEDS: Aspirin Enteric Coated 81 MG TABLET.DR PO (09:10)
[2021-02-09] MEDS: amLODIPine Besylate 5 MG TABLET PO (09:10)
--- NOTE | 2021-02-09 10:50 | PM.PNNEP ---
Subjective Subjective Date of Service: 02/10/21 Interval history: Seen and examined this morning Follow-up for hyponatremia Reporting some dizziness otherwise feeling better compared to yesterday No abdominal pain, nausea, vomiting Physical Exam Vital Signs: Vital Signs: Last Vital Signs Temp 97.9 F 02/09/21 07:32 Pulse 61 02/09/21 09:10 Resp 18 02/09/21 07:32 BP 125/58 L 02/09/21 09:10 Pulse Ox 99 02/09/21 07:32 BMI result Body Mass Index 20.5 Const: Nutritional Appearance: well nourished Orientation/consciousness: patient oriented x3 HENMT: Head: Yes normocephalic and Yes atraumatic Eyes: Sclerae: sclerae normal Resp: Effort & Inspection: normal respiratory effort and no respiratory distress Cardio: Rate: regular rate Rhythm: regular rhythm GI: Palpation (GI): Soft to palpation and nontender Neuro: General: patient oriented x3 Cranial nerves: Yes CN's II-XII intact bilaterally and Yes Bilaterally intact EOM present Objective Data Labs CBC & Chem 7: 02/08/21 06:37 02/09/21 13:12 Labs: Laboratory Results - last 24 hr 02/08/21 02/08/21 02/09/21 12:35 17:37 05:35 Sodium 127 L 129 L 130 L Potassium 3.9 3.5 3.7 Chloride 94 L 94 L 95 L Carbon Dioxide 25 26 27 Anion Gap 12 13 12 BUN 12 14 13 Creatinine 0.72 0.77 0.73 Estim Creat Clear Calc 64.3 60.0 63.3 Estimated GFR > 60 > 60 > 60 Random Glucose 92 137 H 120 H Calcium 9.3 9.3 9.4 Procedures Date of Service Date of Service: 02/09/21 Assessment & Plan Assessment and plan (1) Hyponatremia: Status: Acute Assessment and Plan: hypotonic euvolemic hyponatremia multifactorial: -excessive free water intake -decrease olute excretion -high ADH due to medication REC avoid more than 8 meq correction in 24 hours goal Sna 130 today DC D5W implement fluid restriction follow sodium level Can be transferred Time Spent With Patient Time: Total time spent is greater than 50% in coordination of care (as documented) at patient's floor/unit and/or counseling patient: Time with patient: 15 - 24 minutes Progress Note: Quality Stroke Does the patient have a stroke diagnosis?: No
[2021-02-09 11:10] VITALS: BP 133/60; PULSE 70; RESP 20; TEMP 36.9; O2SAT 98
--- NOTE | 2021-02-09 13:08 | P.DS_ITS ---
DS: Providers Provider Date of Service: 02/09/21 Date of admission: 02/07/21 13:15 Primary care physician: Unknown Physician Consults: 02/07/21 13:53 Consult to Nephrology Routine Consulting Provider: Sergio Stephenson Reason for consultation: hyponatremia, sodium 121 Has provider been notified: No 02/07/21 14:15 Consult to Psychiatry Routine Consulting Provider: Psych Covering Reason for consultation: management for anxiety Has provider been notified: No Attending physician on discharge: [facility] Discharging clinician: Hollie Salomon DS: Diagnosis Discharge Diagnosis (1) Hyponatremia: Status: Acute DS: Summary Hospital Course Hospital Course: HP as per admitting provider This is a 60-year-old female with history of hypertension, hyperlipidemia, anxiety admitted to for inpatient psychiatric treatment of anxiety and depression.? Patient was seen yesterday in consultation a mackenzie for routine medical evaluation.? She reported history of hyponatremia in the past secondary to SSRI use.? Today routine BMP was checked in her sodium level was noted to be 121.? Today she reports she is feeling weak and confused.? She has some nausea.? For this reason the decision was made to admit her to the medical floor for management of hyponatremia.? She reports that yesterday she was feeling thirsty and thinks she she may have had 4 of the acosta pitchers of water . Hyponatremia. Transferred down from . And evaluated by Nephrology. Seems like hyponatremia secondary to hypotonic euvolemic hyponatremia related to excessive free water intake. Possibly medication related. Initial sodium was 1 and 19, up to 132 today off IV fluids, 1.5 L fluid restriction. The plan is for patient to be transferred back to . Provider can follow the sodium and if there is a continued decrease consider consultation of Nephrology Services. Otherwise stable for discharge back to . Time Spent with Patient Time attestation: Total time spent providing and/or coordinating discharge services: Discharge coordination time: Greater than 30 minutes Quality: Stroke Does the patient have a stroke diagnosis?: No Physical Exam Verdana 4l Vital Signs: Verdana 4d Verdana 4d Vital Signs: Verdana 4d Verdana 4Bd Last Vital Signs Verdana 4d Ticket Clerk New 4d Ticket Clerk New 4d Temp 98.4 F 02/09/21 11:10 Ticket Clerk New 4d Pulse 70 02/09/21 11:10 Ticket Clerk NewNew 4d Resp 20 02/09/21 11:10 BP 133/60 02/09/21 11:10 Pulse Ox 98 02/09/21 11:10 BMI result Body Mass Index 20.5 Appearing in no acute distress head is normocephalic atraumatic eyes pupils are PERRLA sclera is anicteric mouth throat mucous membranes are intact and moist neck is supple no lymphadenopathy, no JVD noted lung sounds are clear to auscultation heart regular rate rhythm, clear S1, S2 positive bowel sounds, abdomen is soft, nontender neuro patient is alert x3, no focal deficits DS: Data Data Completed and Pending Labs on day of discharge: Laboratory Results - last 24 hr 02/08/21 02/08/21 02/09/21 12:35 17:37 05:35 Sodium 127 L 129 L 130 L Potassium 3.9 3.5 3.7 Chloride 94 L 94 L 95 L Carbon Dioxide 25 26 27 Anion Gap 12 13 12 BUN 12 14 13 Creatinine 0.72 0.77 0.73 Estim Creat Clear Calc 64.3 60.0 63.3 Estimated GFR > 60 > 60 > 60 Random Glucose 92 137 H 120 H Calcium 9.3 9.3 9.4 Discharge Plan Discharge Anticipated Discharge Date/Time: 02/09/21 13:08 Patient Disposition: Xfer Psychiatric Hosp Discharge Diagnosis: hyponatremia Referrals: Physician,Unknown J [Primary Care Provider] - 1 Week Discharge Medications: Continued buspirone 5 mg tablet 1 tab PO BID RF: 0 trazodone 50 mg tablet 1 tab PO BEDTIME RF: 0 aspirin 81 mg tablet,delayed release (DR/EC) 1 tab PO DAILY RF: 0 folic acid 1 mg tablet 1 tab PO DAILY RF: 0 atorvastatin 10 mg Tablet 10 mg PO DAILY RF: 0 hydroxyzine pamoate 50 mg Capsule 50 mg PO BID PRN (Reason: Anxiety) RF: 0 amlodipine 5 mg Tablet 5 mg PO DAILY RF: 0 diphenhydramine HCl [Benadryl] 25 mg Capsule 25 mg PO BEDTIME PRN (Reason: Anxiety) RF: 0 buspirone 10 mg Tablet 10 mg PO BID RF: 0 thiamine mononitrate (vit B1) 100 mg Tablet 100 mg PO DAILY RF: 0 Discharge Orders: Discharge Order (Routine); Ordered 02/09/21 Ordered By: Hollie Salomon Diet: other Activity on Discharge: As tolerated Stand Alone Forms: Patient Portal Discharge page Care Plan Goals: Resolution of hyponatremia Health Concerns: Hyponatremia Plan of Treatment: Please follow a 1.5 L fluid restriction Assessment: See discharge summary
--- NOTE | 2021-02-09 13:18 | MHC.CARE ---
Per Dr. Dykes, Pt continues to meet criteria for IPLOC. Plan for Pt to be re-admitted to today.
--- NOTE | 2021-02-09 13:40 | CONS_ITS ---
DATE OF SERVICE: 02/08/2021 HISTORY OF PRESENT ILLNESS: This is a 60-year-old patient who presented to the hospital with weakness and was noted to have a low serum sodium. In summary, the patient has a history of anxiety, was admitted to the inpatient psychiatric treatment for management of anxiety and depression and had blood work that showed a low serum sodium. She complains of nausea but denies any vomiting. There is no report of chest pain, shortness of breath, or pain. She admits to drinking large amount of liquid and may have had over 4 pitchers of water. PAST MEDICAL HISTORY: Remarkable for anxiety disorder, dyslipidemia, hypertension, remote history of hyponatremia, spinal stenosis. CURRENT MEDICATION: Include amlodipine, aspirin, atorvastatin, buspirone, Benadryl, , trazodone. ALLERGIES: SHE HAS ALLERGY TO CITALOPRAM. SOCIAL HISTORY: Ex-smoker. FAMILY HISTORY: Negative. REVIEW OF SYSTEMS: A 10-point review of system is negative except for pertinent history of present illness. PHYSICAL EXAMINATION: VITAL SIGNS: Blood pressure is 115/56, heart rate is 67, respiratory rate 20, afebrile. CONSTITUTIONAL: Looks her stated age. No acute distress. NEUROLOGIC: Alert, awake. HEAD: Atraumatic, normocephalic. NECK: Supple LUNGS: Good air entry bilaterally. CARDIOVASCULAR: S1 and S2. No rub. ABDOMEN: Soft, nontender. EXTREMITIES: No peripheral edema. LABORATORY DATA: Sodium 129, potassium 3.9, chloride 94, CO2 of 26, BUN 10, creatinine 0.75, serum osmolality 249, urine osmolality 93. Urine sodium less than 20. IMPRESSION: 1. Hyponatremia. This is a patient with hypotonic euvolemic hyponatremia due to excessive free water intake combined with increased ADH in the setting of underlying medications such as trazodone. I suspect there is also a component of poor solid excretion as well. Her serum sodium corrected about 10 mEq and I would ensure that she does not correct more than 8 mEq in 24 hours. Recommendation will be to start her on D5 water and to avoid correction more than 8 mEq in 24 hours. We will repeat her serum sodium frequently to ensure that and we will discontinue hypotonic fluid if serum sodium is on target at 24 hours from initial presentation and then allow serum sodium to correct with fluid restriction. We will continue to follow closely along with the medical team. Thank you for allowing me to participate in the care of this patient. MD LUIS Gomez/SANDHYA / [phone]
--- NOTE | 2021-02-09 13:50 | MHC.CM.PN ---
Female 60 DX Hyponatremia TX from [facility] She is discharged for transfer to [facility].
[2021-02-09 14:02] LABS: Sodium 132 mmol/L (135-145)
[2021-02-09 15:55] VITALS: BP 130/64; PULSE 70; RESP 18; TEMP 37.2; O2SAT 100
== END 2021-02-09 17:35 | DRG 425 ==
LOC: HO.EDOVER 13:39 → HO.IMC 13:41
PROVIDERS: Internal Medicine; Student in an Organized Health Care Education/Training Program; Admitting Provider Physician Assistant Medical; Visit Provider Nurse Practitioner Acute Care
DX: E87.1 Hypo-osmolality and hyponatremia (principal); I10 Essential (primary) hypertension; E78.5 Hyperlipidemia, unspecified; F32.A Depression, unspecified; F41.9 Anxiety disorder, unspecified; Z87.891 Personal history of nicotine dependence; Z79.82 Long term (current) use of aspirin; Z79.899 Other long term (current) drug therapy
CPT/HCPCS: 36415; 80048; 83735; 83935; 84295; 84300; 85025; J1650

== ENCOUNTER 2021-02-09 17:12 | Inpatient (IN) | payer BC, SELFPAY ==
--- NOTE | ~2021-02-09 | CT_ITS ---
EXAMINATION: CT HEAD WITHOUT CONTRAST CLINICAL INFORMATION: Confusion COMPARISON: None TECHNIQUE: Contiguous axial imaging was performed from the skull base to vertex without intravenous administration of contrast. This CT examination was performed using dose optimization techniques as appropriate, variously including the following: *Automated exposure control *Adjustment of mA and/or kV according to patient size (this includes techniques or standardized protocols for targeted exams where dose is matched to indication/reason for exam; i.e. extremities or head) *Use of iterative reconstruction technique DLP: 535 mGy-cm FINDINGS: There is no evidence of an extra-axial collection. There is no evidence of intra-axial or extra-axial hemorrhage. The ventricles and extra-axial CSF spaces are appropriate. Pierre-white matter differentiation is normal. There is a left basal ganglia lacunar infarct of uncertain age. No other infarct, mass or mass effect is seen. Review at bone windows is normal. Visualized paranasal sinuses, mastoid air cells and middle ears are clear. CT/CT head/brain wo con IMPRESSION: Left basal ganglia pulmonary infarct of uncertain age. Otherwise unremarkable exam.
--- NOTE | 2021-02-09 19:54 | PC.ADMIT ---
60 y.o. australian speaking female arrives on at 18:50. PT is an intrahospital transfer. PT was admitted to on 02/06 for anxiety and depression but was transferred to intermediate care shortly after admission due to hyponatremia that has since resolved. PT arrives on the unit in a [facility] via wheelchair. PT admitted on CV basis and was cooperative with admission. Admission orders obtained.
[2021-02-09 20:07] VITALS: BMI 21.5
[2021-02-09] MEDS: busPIRone HCl 10 MG TABLET PO (20:31)
[2021-02-09] MEDS: traZODone HCL 50 MG TABLET PO ×2 (20:31→21:34)
[2021-02-10 06:00] VITALS: BP 143/73; PULSE 78; RESP 16; TEMP 36.3; O2SAT 98
[2021-02-10 09:07] VITALS: BP 143/73; PULSE 78
[2021-02-10] MEDS: amLODIPine Besylate 5 MG TABLET PO (09:07)
[2021-02-10] MEDS: Thiamine HCL 100 MG TABLET PO (09:09)
[2021-02-10] MEDS: Folic Acid 1 MG TABLET PO (09:10)
[2021-02-10] MEDS: busPIRone HCl 5 MG TABLET PO (09:10)
[2021-02-10] MEDS: Atorvastatin Calcium 10 MG TABLET PO (09:11)
[2021-02-10] MEDS: Aspirin 81 MG TAB.CHEW PO (09:11)
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
[2021-02-10 16:30] VITALS: BP 137/68; PULSE 86; TEMP 36.1
[2021-02-10] MEDS: Escitalopram Oxalate 10 MG TABLET PO (19:07)
[2021-02-10] MEDS: traZODone HCL 100 MG TABLET PO (21:51)
[2021-02-11 08:56] LABS: Anion Gap 14 (12-20); Carbon Dioxide 29 mmol/L (22-29); Chloride 98 mmol/L (96-108); Sodium 137 mmol/L (135-145)
[2021-02-11] MEDS: Atorvastatin Calcium 10 MG TABLET PO (09:14)
[2021-02-11] MEDS: Folic Acid 1 MG TABLET PO (09:14)
[2021-02-11 09:15] VITALS: BP 183/89; PULSE 86
[2021-02-11] MEDS: Aspirin 81 MG TAB.CHEW PO (09:15)
[2021-02-11] MEDS: Thiamine HCL 100 MG TABLET PO (09:15)
[2021-02-11] MEDS: amLODIPine Besylate 5 MG TABLET PO (09:15)
[2021-02-11] MEDS: Escitalopram Oxalate 10 MG TABLET PO (10:24)
[2021-02-11 10:26] VITALS: BP 161/76; RESP 85
--- NOTE | 2021-02-11 10:42 | HO.PSYCHPN ---
Subjective Subjective Date of Service: 02/11/21 Reason For Visit: Generalized Anxiety Disorder Interim History: Patient reports that she slept well. She denies any SI. She remains very anxious however and repeats questions about her medication regimen. She agrees to try clonidine for anxiety as a blood pressure is high. [employer] informed her that her sodium has remained at a good level and that she can increase her water intake to 2 pictures per day. Patient has trouble remembering information given to her by this information writer and so [place] was ordered. Patient says that she no longer has image of the devil when she closes her eyes. Mental Status Exam Mental Status Exam Narrative: Pt is alert and oriented; behavior is cooperative, but anxious; dressed in hospital gown with unkempt hair but adequate hygiene; mood is described as anxious and affect anxious; eye contact appropriate; Speech is normal rate, volume and prosody and not pressured; no psychomotor agitation/retardation present; thought process is goal directed, but also seems confused and she repeats herself; Thought content is on treatment, what medications to trust; denies SI/ HI; No AVH. No delusional content, paranoid ideations or grandiosity; Patients insight and judgment is impaired. Diagnostics Vital Signs (24Hr): Vital Signs - 24 hr 02/10/21 16:30 02/11/21 09:15 02/11/21 10:26 Temperature 97.0 F Pulse Rate 86 86 Respiratory Rate 85 H Blood Pressure 137/68 183/89 H 161/76 H BMI result Body Mass Index 21.5 Labs Results: 02/11/21 08:12 Labs: Laboratory Results - last 48 hr 02/11/21 08:12 Sodium 137 Potassium 4.0 Chloride 98 Carbon Dioxide 29 Anion Gap 14 Medications Medications Current Medications Acetaminophen (Acetaminophen 325 Mg Tablet) 650 mg PO Q6H PRN PRN Reason: Headache/Pain Mild Scale (1-3) Al Hydroxide/Mg Hydroxide (Magnesium Hydrox/Alum Hydrox 30 Ml Oral.Susp) 30 ml PO Q6H PRN PRN Reason: Heartburn/Nausea Amlodipine Besylate (Amlodipine Besylate 5 Mg Tablet) 5 mg PO DAILY [facility]; Protocol Last Admin: 02/11/21 09:15 Dose: 5 mg Documented by: Aspirin (Aspirin 81 Mg Tab.Chew) 81 mg PO DAILY [facility] Last Admin: 02/11/21 09:15 Dose: 81 mg Documented by: Atorvastatin Calcium (Atorvastatin Calcium 10 Mg Tablet) 10 mg PO DAILY [facility] Last Admin: 02/11/21 09:14 Dose: 10 mg Documented by: Escitalopram Oxalate (Escitalopram Oxalate 10 Mg Tablet) 10 mg PO DAILY [facility] Last Admin: 02/11/21 10:24 Dose: 10 mg Documented by: Folic Acid (Folic Acid 1 Mg Tablet) 1 mg PO DAILY [facility] Last Admin: 02/11/21 09:14 Dose: 1 mg Documented by: Lorazepam (Lorazepam 0.5 Mg Tablet) 0.5 mg PO TID PRN PRN Reason: mild to moderate anxiety Lorazepam (Lorazepam 1 Mg Tablet) 1 mg PO BID PRN PRN Reason: mod to severe anxiety Magnesium Hydroxide (Milk Of Magnesia 30 Ml Oral.Susp) 30 ml PO DAILY PRN PRN Reason: Constipation Saliva Substitute (Dry Mouth [place] 60 Ml [place]) 1 spray MUCOUS MEM Q2H PRN PRN Reason: Dry Mouth Thiamine HCl (Thiamine Hcl 100 Mg Tablet) 100 mg PO DAILY [facility] Last Admin: 02/11/21 09:15 Dose: 100 mg Documented by: Trazodone HCl (Trazodone Hcl 50 Mg Tablet) 50 mg PO BEDTIME PRN PRN Reason: Insomnia Last Admin: 02/09/21 21:34 Dose: 50 mg Documented by: Trazodone HCl (Trazodone Hcl 100 Mg Tablet) 100 mg PO BEDTIME [facility] Last Admin: 02/10/21 21:51 Dose: 100 mg Documented by: Allergies Allergies Allergy/AdvReac Type Severity Reaction Status Date / Time No Known Allergies Allergy Verified 02/10/21 17:16 Assessment & Plan Assessment & Plan (1) LORENZO (generalized anxiety disorder): Status: Acute Code(s): F41.1 - Generalized anxiety disorder (2) HLD (hyperlipidemia): Status: Chronic Code(s): E78.5 - Hyperlipidemia, unspecified (3) Hyponatremia: Status: Acute Code(s): E87.1 - Hypo-osmolality and hyponatremia (4) HTN (hypertension): Status: Chronic Code(s): I10 - Essential (primary) hypertension (5) MDD (major depressive disorder): Status: Acute Code(s): F32.9 - Major depressive disorder, single episode, unspecified Assessment and Plan: Patient is a 60-year-old female with history of severe anxiety, formally well treated with citalopram until it caused hyponatremia. She was admitted to for worsening anxiety that triggered suicidal ideation. Patient was drinking water excessively, developed hyponatremia and was transferred to the medical floor for treatment. Patient's sodium return to normal and she was return to for continued treatment. Initially it was thought that patient developed hyponatremia due to citalopram, however today her came in and reviewed with information writer discharge paperwork from her past hospitalizations for hyponatremia. Patient's reports and patient fully agrees that patient tolerated citalopram for 16 years without any problems. When she 1st got hyponatremia in May 2019 it resulted from her drinking excessive amounts of celery juice for few weeks, which caused her to have chronic diarrhea, become dehydrated, thirsty and then by drinking copious amounts of water. During this admission there is no indication that citalopram was the cause and she remained on citalopram for the next year. In June 2020 she had a bout of severe anxiety which she reports and her concurs that she again started drinking copious amounts of water resulting in a her being hospitalized and treated for hyponatremia. There was some concern that perhaps citalopram was causing her to have a dry mouth, which was causing her to drink excessive fluid so citalopram was tapered off. She was started on Latuda which seemed to be both ineffective and problematic though not clear how so and her anxiety increased until she was hospitalized at [facility] this past January 2021. Her Latuda, hydroxyzine and Benadryl were all discontinued. She was started on Wellbutrin, trazodone and BuSpar however the Wellbutrin aggravated her anxiety and she ended up admitted at [facility]. Patient was started on mirtazapine however because she continued to drink copious amounts of water developed hyponatremia. There was some question of whether or not this could be due to medication as well however Shaker Flatwork discussed case with Hollie Salomon, who was covering patient on medical floor who agreed that current bout of hyponatremia was most likely due to polydipsia and that it was very reasonable to retry mirtazapine. Hay Stacker Operator also commented hyponatremia most likely due to excessive water intake. Given collateral provided by patient's , it seems very unlikely that citalopram was the cause of her hyponatremia or even the cause of her dry mouth; since this medication treated patient's anxiety for years, patient agrees to restart (agrees to substitute escitalopram for now). Patient reports that she is still very anxious and depressed and had suicidal thoughts yesterday, wanting to . She denies any SI today. Will continue to monitor for hyponatremia as medications are restarted. Given the fact that patients anxiety triggers both depression and suicidality, the risks of not treating her symptoms are weighty; the potential benefit of restarting citalopram/escitalopram outweighs the potential risk of causing hyponatremia (especially since pt is in hospital and monitored). Virtually all other medications indicated for patients symptoms have some risk of causing hyponatremia and since citalopram has been effective in the past, will start with a re-trial of this medication. Patient understands the risks of medication regimen; she agrees with this reasoning and with this plan and agrees to move forward with current medication regimen 02/11 Sodium and electrolytes within normal limits Patient denies SI and says that she is doing little better however she remains anxious. Will try clonidine for anxiety PLAN: RESTRIcT Fluids for now Patient on CV Q 15 minute checks Trazodone 100 mg. Patient says she cannot sleep on 50 mg Start Lexapro 10 mg (substituted for citalopram; patient used to be on citalopram 40 mg) Labs: Lytes ordered for 02/11 Will use Ativan as a p.r.n. for breakthrough anxiety; Will consider read trial of clonidine if patient remains with normal sodium level and it blood pressure within normal limits. I spent minutes with the patient and/or on the patient floor today, greater than?50% of which was spent counseling/coordinating care. Reason for contiued inpatient stay Substantial Risk for: rapid decompensation
--- NOTE | 2021-02-11 16:00 | PC.NURSE ---
Pt participated in [facility] screen on this date, scored 22/30, indicating mild cognitive disfunction. MD medrano
[2021-02-11 18:00] VITALS: BP 146/81; PULSE 92; RESP 18; TEMP 36.2; O2SAT 99
[2021-02-11] MEDS: traZODone HCL 100 MG TABLET PO (20:37)
[2021-02-11 20:56] VITALS: BP 146/81; PULSE 99
[2021-02-11] MEDS: cloNIDine HCL 0.1 MG TABLET PO (20:56)
[2021-02-11] MEDS: traZODone HCL 50 MG TABLET PO (22:49)
[2021-02-12] VITALS (10 sets, daily range): BP systolic 108–182; BP diastolic 55–81; PULSE 75–97; RESP 16–18; TEMP 35.7–36.6; O2SAT 98–99
--- NOTE | 2021-02-12 | ECG_ITS ---
Test Reason : chest pressure Blood Pressure : / mmHG Vent. Rate : 076 BPM Atrial Rate : 076 BPM P-R Int : 154 ms QRS Dur : 078 ms QT Int : 402 ms P-R-T Axes : 064 031 037 degrees QTc Int : 452 ms Normal sinus rhythm Normal ECG No previous ECGs available Referred By: Bob Dykes Electronically Signed By:Angelo Zavala
[2021-02-12] MEDS: amLODIPine Besylate 5 MG TABLET PO (08:45)
[2021-02-12] MEDS: Thiamine HCL 100 MG TABLET PO (08:45)
[2021-02-12] MEDS: Folic Acid 1 MG TABLET PO (08:45)
[2021-02-12] MEDS: Atorvastatin Calcium 10 MG TABLET PO (08:45)
[2021-02-12] MEDS: Aspirin 81 MG TAB.CHEW PO (08:45)
[2021-02-12] MEDS: Escitalopram Oxalate 10 MG TABLET PO (08:45)
--- NOTE | 2021-02-12 10:23 | HO.PSYCHPN ---
Subjective Subjective Date of Service: 02/12/21 Reason For Visit: Generalized Anxiety Disorder Interim History: Patient reported that she was feeling dizzy. She kept saying I do not feel good doc I do not feel good. Patient said I feel sluggish... sleepy... dizzy at what point she said that it is hard to breathe in and out. And that her heart is beating fast. Patient complained of getting very poor sleep last night. ...At 1st she said she did not sleep at all ...then she says she does not know if she slept. ...Then she said she slept but woke up very easily. Patient also said that she has been hearing a voice that tells he what to do. Patient was a little guarded about this and hesitant to explain further but then she said the voice says that is what you get when she does something wrong. At 1st patient said that this is new and only started this admission. ...Then patient said this was present in the weeks prior to this admission ...then patient said it might have been present even before her last admission at [facility]. ...However a few minutes later when greeting card writer revisited this topic, patient was surprised and did not remember that she said auditory hallucinations were present prior to this admission and said she takes at back that it has only been this past week. Patient reports that at night when she closes her eyes she is seeing things. She sees letters , angels or evil however patient cannot elaborate. She reiterated upon inquiry that this only happens when she closes her eyes and this may be what is causing her to have trouble sleeping. When patient went to stand up patient started to fall backwards a little And needed to sit back down. Asian Studies Program Chair got vitals which showed elevated blood pressure but otherwise normal heart rate, O2 sat Asian Studies Program Chair called to discuss case with Dr. Erwin, hospitalist who agreed to come and see patient and ruled out stroke or need for head imaging at this time. Asian Studies Program Chair saw patient later who said she was feeling better and discuss treatment. Patient very much wants help with sleep and she agreed to clonidine at bedtime to see if that can help with anxiety, also given that her blood pressure runs high. She does not want trazodone anymore even though it seemed to help her earlier during admission. She said it did not help last night and is worried that it is making her mouth dry. Asian Studies Program Chair encouraged patient to see if clonidine would be enough to help her sleep tonight however patient remained very anxious about it. Asian Studies Program Chair discussed other options including mirtazapine and low-dose antipsychotic. Patient was very ambivalent. She agreed to mirtazapine 7.5 mg q.h.s. which can also help with anxiety and depression Mental Status Exam Mental Status Exam Narrative: ?Pt is alert and oriented; behavior is cooperative, but anxious; dressed in hospital gown with unkempt hair but adequate hygiene; mood is described as anxious..i don't feel good and affect anxious; eye contact appropriate; Speech is normal rate, volume and prosody and not pressured; no psychomotor agitation/retardation present; thought process is goal directed, but also seems confused and she repeats questions, or changes answers; Thought content is on treatment and how she's feeling; denies SI/ HI; reports AH at night. No delusional content, paranoid ideations or grandiosity; Patients insight and judgment is impaired. Diagnostics Vital Signs (24Hr): Vital Signs - 24 hr 02/11/21 10:26 02/11/21 18:00 02/11/21 20:56 Temperature 97.1 F Pulse Rate 92 99 Respiratory Rate 85 H 18 Blood Pressure 161/76 H 146/81 H 146/81 H Pulse Oximetry 99 02/12/21 05:33 02/12/21 06:00 02/12/21 08:45 Temperature 96.9 F 96.2 F L Pulse Rate 92 75 Respiratory Rate 18 16 Blood Pressure 137/63 182/81 H Pulse Oximetry 99 98 BMI result Body Mass Index 20.0 Labs Results: 02/13/21 07:55 Labs: Laboratory Results - last 48 hr 02/11/21 08:12 Sodium 137 Potassium 4.0 Chloride 98 Carbon Dioxide 29 Anion Gap 14 Medications Medications Current Medications Acetaminophen (Acetaminophen 325 Mg Tablet) 650 mg PO Q6H PRN PRN Reason: Headache/Pain Mild Scale (1-3) Al Hydroxide/Mg Hydroxide (Magnesium Hydrox/Alum Hydrox 30 Ml Oral.Susp) 30 ml PO Q6H PRN PRN Reason: Heartburn/Nausea Amlodipine Besylate (Amlodipine Besylate 5 Mg Tablet) 5 mg PO DAILY [facility]; Protocol Last Admin: 02/12/21 08:45 Dose: 5 mg Documented by: Aspirin (Aspirin 81 Mg Tab.Chew) 81 mg PO DAILY [facility] Last Admin: 02/12/21 08:45 Dose: 81 mg Documented by: Atorvastatin Calcium (Atorvastatin Calcium 10 Mg Tablet) 10 mg PO DAILY [facility] Last Admin: 02/12/21 08:45 Dose: 10 mg Documented by: Clonidine HCl (Clonidine Hcl 0.1 Mg Tablet) 0.1 mg PO BID PRN; Protocol PRN Reason: mild anxiety (try before ativan) Last Admin: 02/11/21 20:56 Dose: 0.1 mg Documented by: Escitalopram Oxalate (Escitalopram Oxalate 10 Mg Tablet) 10 mg PO DAILY [facility] Last Admin: 02/12/21 08:45 Dose: 10 mg Documented by: Folic Acid (Folic Acid 1 Mg Tablet) 1 mg PO DAILY [facility] Last Admin: 02/12/21 08:45 Dose: 1 mg Documented by: Lorazepam (Lorazepam 0.5 Mg Tablet) 0.5 mg PO TID PRN PRN Reason: mild to moderate anxiety Lorazepam (Lorazepam 1 Mg Tablet) 1 mg PO BID PRN PRN Reason: mod to severe anxiety Magnesium Hydroxide (Milk Of Magnesia 30 Ml Oral.Susp) 30 ml PO DAILY PRN PRN Reason: Constipation Saliva Substitute (Dry Mouth [place] 60 Ml [place]) 1 spray MUCOUS MEM Q2H PRN PRN Reason: Dry Mouth Thiamine HCl (Thiamine Hcl 100 Mg Tablet) 100 mg PO DAILY [facility] Last Admin: 02/12/21 08:45 Dose: 100 mg Documented by: Trazodone HCl (Trazodone Hcl 50 Mg Tablet) 50 mg PO BEDTIME PRN PRN Reason: Insomnia Last Admin: 02/11/21 22:49 Dose: 50 mg Documented by: Trazodone HCl (Trazodone Hcl 100 Mg Tablet) 100 mg PO BEDTIME [facility] Last Admin: 02/11/21 20:37 Dose: 100 mg Documented by: Allergies Allergies Allergy/AdvReac Type Severity Reaction Status Date / Time No Known Allergies Allergy Verified 02/10/21 17:16 Assessment & Plan Assessment & Plan (1) LORENZO (generalized anxiety disorder): Status: Acute Code(s): F41.1 - Generalized anxiety disorder (2) HLD (hyperlipidemia): Status: Chronic Code(s): E78.5 - Hyperlipidemia, unspecified (3) Hyponatremia: Status: Acute Code(s): E87.1 - Hypo-osmolality and hyponatremia (4) HTN (hypertension): Status: Chronic Code(s): I10 - Essential (primary) hypertension (5) MDD (major depressive disorder): Status: Acute Code(s): F32.9 - Major depressive disorder, single episode, unspecified Assessment and Plan: Patient is a 60-year-old female with history of severe anxiety, formally well treated with citalopram until it caused hyponatremia. She was admitted to for worsening anxiety that triggered suicidal ideation. Patient was drinking water excessively, developed hyponatremia and was transferred to the medical floor for treatment. Patient's sodium return to normal and she was return to for continued treatment. Initially it was thought that patient developed hyponatremia due to citalopram, however today her came in and reviewed with greeting card writer discharge paperwork from her past hospitalizations for hyponatremia. Patient's reports and patient fully agrees that patient tolerated citalopram for 16 years without any problems. When she 1st got hyponatremia in May 2019 it resulted from her drinking excessive amounts of celery juice for few weeks, which caused her to have chronic diarrhea, become dehydrated, thirsty and then by drinking copious amounts of water. During this admission there is no indication that citalopram was the cause and she remained on citalopram for the next year. In June 2020 she had a bout of severe anxiety which she reports and her concurs that she again started drinking copious amounts of water resulting in a her being hospitalized and treated for hyponatremia. There was some concern that perhaps citalopram was causing her to have a dry mouth, which was causing her to drink excessive fluid so citalopram was tapered off. She was started on Latuda which seemed to be both ineffective and problematic though not clear how so and her anxiety increased until she was hospitalized at [facility] this past January 2021. Her Latuda, hydroxyzine and Benadryl were all discontinued. She was started on Wellbutrin, trazodone and BuSpar however the Wellbutrin aggravated her anxiety and she ended up admitted at [place]. Patient was started on mirtazapine however because she continued to drink copious amounts of water developed hyponatremia. There was some question of whether or not this could be due to medication as well however Asian Studies Program Chair discussed case with Hollie Salomon, who was covering patient on medical floor who agreed that current bout of hyponatremia was most likely due to polydipsia and that it was very reasonable to retry mirtazapine. Preparole Counseling Aide also commented hyponatremia most likely due to excessive water intake. Given collateral provided by patient's , it seems very unlikely that citalopram was the cause of her hyponatremia or even the cause of her dry mouth; since this medication treated patient's anxiety for years, patient agrees to restart (agrees to substitute escitalopram for now). Patient reports that she is still very anxious and depressed and had suicidal thoughts yesterday, wanting to . She denies any SI today. Will continue to monitor for hyponatremia as medications are restarted. Given the fact that patients anxiety triggers both depression and suicidality, the risks of not treating her symptoms are weighty; the potential benefit of restarting citalopram/escitalopram outweighs the potential risk of causing hyponatremia (especially since pt is in hospital and monitored). Virtually all other medications indicated for patients symptoms have some risk of causing hyponatremia and since citalopram has been effective in the past, will start with a re-trial of this medication. Patient understands the risks of medication regimen; she agrees with this reasoning and with this plan and agrees to move forward with current medication regimen 02/11 Sodium and electrolytes within normal limits Patient denies SI and says that she is doing little better however she remains anxious. Will try clonidine for anxiety 02/12 Patient reports feeling sluggish tired and dizzy. She did have some balance issues when she stood up. Question whether balance is due to orthostatic hypotension being tired from insomnia Intermittent trouble breathing in or out seems to be more likely due to combination of insomnia, anxiety However patient is a college graduate and 60 years old and from collateral she is more confused and this is not her baseline. Asian Studies Program Chair called hospitalist Dr. Erwin to assess and who ruled out concern for stroke and said that there is no imminent need for imaging however that head CT might help once other lab work ruled out. Orthostatics obtained and unremarkable Blood sugar unremarkable EKG unremarkable Will order labs discussed BP with Zora SORTO who recommends leaving antihypertensive at current dose PLAN: Patient on CV Q 15 minute checks Hyponatremia due to polydipsia and not medication related; hyponatremia resolved continue to RESTRIcT Fluids to 2 pitchers per day Anxiety depression: Lexapro 10 mg (substituted for citalopram; patient used to be on citalopram 40 mg) START Mirtazapine 7.5mg for help w/ sleep and anxiety/depression START Clondine 0.1mg at bedtime Clonidine 0.1mg BID prn Ativan prn but patient mostly refuses Auditory hallucinations Not sure if mood congruent; not sure when this started Hypnogogic visual hallucination present continue to monitor Confusion: Presents as confused [facility] Currently it is Not clear what is patient's baseline; will get collateral -labs ordered to help assess organic process: (B12, folate, RPR); TSH within normal limits, calcium within normal limits, other electrolytes within normal limits -discussing with Dr. Erwin who has ruled out stroke or need for MRI/cerebellar MRI -may still get head CT; patient denies any falls or head trauma in recent or remote past Insomnia: Discontinued Trazodone: pt says does not help and does not want START Mirtazapine 7.5mg for help w/ sleep and anxiety/depression START Clondine 0.1mg at bedtime I spent minutes with the patient and/or on the patient floor today, greater than?50% of which was spent counseling/coordinating care. Reason for contiued inpatient stay Substantial Risk for: inability to function
[2021-02-12] MEDS: cloNIDine HCL 0.1 MG TABLET PO ×2 (12:02→20:11)
[2021-02-12 12:38] LABS: Glucose, Whole Blood 119 mg/dL (60-115)
--- NOTE | 2021-02-12 12:41 | HO.HSGERICON ---
History of Present Illness Data of Consult Service Date: 02/12/21 <NOREEN Van - Last Filed: 02/12/21 14:39> Requesting physician: oBb Dykes <NOREEN Van - Last Filed: 02/12/21 14:39> Primary Care Provider: Unknown Physician <NOREEN Van - Last Filed: 02/12/21 14:39> HPI Reason for consult: confusion, dizzy, ?ataxia <NOREEN Van - Last Filed: 02/12/21 14:39> This is a 60-year-old female with history of hyponatremia currently admitted to for management of anxiety. The hospitalists were asked to see her in consultation due to confusion, dizziness and possible ataxia. Today patient states that she is feeling confused. She feels like she can't understand what people are telling her. She initially reported feeling off balance like she was going fall backwards while ambulating. She felt that she needed to hold on to someone for assistance. She later reported feeling lightheaded when standing. This began earlier today. She denies any abdominal pain, nausea or vomiting. She reports being compliant with her fluid restriction. She is able to answer all questions appropriately and is oriented. <NOREEN Van - Last Filed: 02/12/21 14:39> Review of Systems Review of Systems: Yes all other systems are reviewed and are negative <NOREEN Van - Last Filed: 02/12/21 14:39> Gastrointestinal: Gastrointestinal: Denies abdominal pain, Denies nausea and Denies vomiting <NOREEN Van Last Filed: 02/12/21 14:39> Genitourinary: Genitourinary: Denies dysuria and Denies urinary incontinence <NOREEN Van - Last Filed: 02/12/21 14:39> [facility] Medical History: Medical History LORENZO (generalized anxiety disorder) HLD (hyperlipidemia) HTN (hypertension) Hyponatremia MDD (major depressive disorder) Spinal stenosis <NOREEN Van Last Filed: 02/12/21 14:39> Functional capacity: independent ambulation <NOREEN Van - Last Filed: 02/12/21 14:39> Family History: Family History Mother CVA (cerebral vascular accident) <NOREEN Van - Last Filed: 02/12/21 14:39> Surgical History: Surgical History H/O cervical spine surgery <NOREEN Van - Last Filed: 02/12/21 14:39> Social History: Social History Household Members: Spouse Housing: House Do you presently have visiting nurse or other home services: No Alcohol intake: never Patient Tobacco Use Status: Former Tobacco user Tobacco use type: Cigarette e-Cigarette/Vaping Use: Never Used Second Hand Smoke Exposure: No Use of substances other than those prescribed or required for medical reasons: No Currently Displaying Signs/Symptoms of Drug Intoxication Withdrawal: No Have you been hit, kicked, punched, or otherwise hurt by someone within the past year? If so, by whom?: No Do you feel safe in your current relationship?: No Is there a partner from a previous relationship who is making you feel unsafe now?: No Are you made to feel afraid or neglected: No Nondenominational Healthcare Practices: Bahai Advance Directives: No Advance Directives Information Provided: No Do you have thoughts of harming others: None Do you have a plan to hurt others: No Plan Recently lost weight without trying: No Nutrition Risks: No Nutritional Risk service: No Current occupational status: disabled Sexual orientation: Did not discuss <NOREEN Van - Last Filed: 02/12/21 14:39> Meds Allergies/Adverse reactions: Allergies Allergy/AdvReac Type Severity Reaction Status Date / Time No Known Allergies Allergy Verified 02/10/21 17:16 <NOREEN Van - Last Filed: 02/12/21 14:39> Active Medications: Current Medications Acetaminophen (Acetaminophen 325 Mg Tablet) 650 mg PO Q6H PRN PRN Reason: Headache/Pain Mild Scale (1-3) Al Hydroxide/Mg Hydroxide (Magnesium Hydrox/Alum Hydrox 30 Ml Oral.Susp) 30 ml PO Q6H PRN PRN Reason: Heartburn/Nausea Amlodipine Besylate (Amlodipine Besylate 5 Mg Tablet) 5 mg PO DAILY [facility]; Protocol Last Admin: 02/12/21 08:45 Dose: 5 mg Documented by: Aspirin (Aspirin 81 Mg Tab.Chew) 81 mg PO DAILY [facility] Last Admin: 02/12/21 08:45 Dose: 81 mg Documented by: Atorvastatin Calcium (Atorvastatin Calcium 10 Mg Tablet) 10 mg PO DAILY [facility] Last Admin: 02/12/21 08:45 Dose: 10 mg Documented by: Clonidine HCl (Clonidine Hcl 0.1 Mg Tablet) 0.1 mg PO BID PRN; Protocol PRN Reason: mild anxiety (try before ativan) Last Admin: 02/12/21 12:02 Dose: 0.1 mg Documented by: Clonidine HCl (Clonidine Hcl 0.1 Mg Tablet) 0.1 mg PO BEDTIME [facility]; Protocol Escitalopram Oxalate (Escitalopram Oxalate 10 Mg Tablet) 10 mg PO DAILY [facility] Folic Acid (Folic Acid 1 Mg Tablet) 1 mg PO DAILY [facility] Last Admin: 02/12/21 08:45 Dose: 1 mg Documented by: Lorazepam (Lorazepam 0.5 Mg Tablet) 0.5 mg PO TID PRN PRN Reason: mild to moderate anxiety Lorazepam (Lorazepam 1 Mg Tablet) 1 mg PO BID PRN PRN Reason: mod to severe anxiety Magnesium Hydroxide (Milk Of Magnesia 30 Ml Oral.Susp) 30 ml PO DAILY PRN PRN Reason: Constipation Saliva Substitute (Dry Mouth [place] 60 Ml [place]) 1 spray MUCOUS MEM Q2H PRN PRN Reason: Dry Mouth Thiamine HCl (Thiamine Hcl 100 Mg Tablet) 100 mg PO DAILY [facility] Last Admin: 02/12/21 08:45 Dose: 100 mg Documented by: Trazodone HCl (Trazodone Hcl 50 Mg Tablet) 50 mg PO BEDTIME PRN PRN Reason: Insomnia Last Admin: 02/11/21 22:49 Dose: 50 mg Documented by: Trazodone HCl (Trazodone Hcl 100 Mg Tablet) 100 mg PO BEDTIME [facility] Last Admin: 02/11/21 20:37 Dose: 100 mg Documented by: <NOREEN Van - Last Filed: 02/12/21 14:39> Home medications: Home Medications Medication Instructions Recorded Confirmed Last Taken Type amlodipine 5 mg tablet 5 mg PO DAILY 12/03/21 12/04/21 12/02/21 11:41 History aspirin 81 mg tablet,delayed 1 tab PO DAILY 02/06/21 02/07/21 Unknown History release atorvastatin 10 mg tablet 10 mg PO DAILY 02/06/21 02/07/21 Unknown History buspirone 10 mg tablet 10 mg PO BID 02/06/21 02/07/21 02/05/21 11:41 History 10 mg buspirone 5 mg tablet 1 tab PO BID 02/06/21 02/07/21 Unknown History diphenhydramine HCl 25 mg capsule 25 mg PO BEDTIME PRN 02/06/21 02/07/21 02/05/21 05:57 History (Benadryl) folic acid 1 mg tablet 1 tab PO DAILY 02/06/21 02/07/21 Unknown History hydroxyzine pamoate 50 mg capsule 50 mg PO BID PRN 02/06/21 02/07/21 Unknown History thiamine mononitrate (vit B1) 100 100 mg PO DAILY 02/06/21 02/07/21 Unknown History mg tablet trazodone 50 mg tablet 1 tab PO BEDTIME 02/06/21 02/07/21 Unknown History <NOREEN Van - Last Filed: 02/12/21 14:39> Results Labs CBC and Chem 7: : 02/11/21 08:12 <NOREEN Van - Last Filed: 02/12/21 14:39> Labs: Laboratory Results - last 24 hr 02/12/21 12:34 POC Glucose 119 H <NOREEN Van - Last Filed: 02/12/21 14:39> Assessment and Plan (1) Dizziness: Status: Acute <NOREEN Van - Last Filed: 02/12/21 14:39> This is a 52-year-old female history of hypertension, hyperlipidemia, anxiety, hyponatremia with recent admission to medical floor for the same currently admitted to for management of anxiety now with complaints of dizziness Dizziness no focal neuro deficits, pt able to ambulate without assistance. no ataxia check orthostatic blood pressure - if positive would d/c clonidine confusion alert and oriented and answering questions appropriately normal neuro exam. no focal deficits. no encephopathy seems like more of a memory impairment issue pt also receiving scheduled and prn ativan for anxiety which could be playing a role can consider further workup for ?mild cognitive impairment hyponatremia r/t polydispia sodium on 02/11 137 continue with fluid restriction restarted on SSRI repeat BMP in am HTN blood pressure mostly in 140s or lower would not adjust medication based on few high readings thank you for allowing us to participate in the care of this patient Attending: dr. danielson <NOREEN Van - Last Filed: 02/12/21 14:39> Physical Exam Vital Signs: Last Vital Signs Temp 96.2 F L 02/12/21 06:00 Pulse 94 02/12/21 11:24 Resp 16 02/12/21 06:00 BP 140/64 H 02/12/21 11:24 Pulse Ox 98 02/12/21 06:00 BMI result Body Mass Index 20.0 <NOREEN Van Last Filed: 02/12/21 14:39> Const General: cooperative, healthy appearing, comfortable, no acute distress, alert and awake <NOREEN Van Last Filed: 02/12/21 14:39> Nutritional Appearance: well nourished <NOREEN Van - Last Filed: 02/12/21 14:39> Orientation/consciousness: patient oriented x3 <NOREEN Van - Last Filed: 02/12/21 14:39> HENMT Head: Yes normocephalic and Yes atraumatic <NOREEN Van Last Filed: 02/12/21 14:39> Eyes Sclerae: sclerae normal <NOREEN Van - Last Filed: 02/12/21 14:39> Pupils: Equal, round and reactive pupils present <NOREEN Van Last Filed: 02/12/21 14:39> EOM: EOMs intact bilaterally and No Nystagmus present <NOREEN Van Last Filed: 02/12/21 14:39> Resp Effort & Inspection: normal respiratory effort and no respiratory distress <NOREEN Van Last Filed: 02/12/21 14:39> GI Palpation (GI): Soft to palpation and nontender <NOREEN Van Last Filed: 02/12/21 14:39> Neuro General: patient oriented x3 and gait normal <NOREEN Van Last Filed: 02/12/21 14:39> Cranial nerves: Yes CN's II-XII intact bilaterally, Yes Equal, round and reactive pupils present, Yes Bilaterally intact EOM present, Yes Normal facial strength present, Yes Midline tongue present and No Nystagmus present <NOREEN Van - Last Filed: 02/12/21 14:39> Gait exam (Neuro): Normal gait present <NOREEN Van Last Filed: 02/12/21 14:39> Motor exam (neuro): no tremor noted and Motor fasciculations not present <NOREEN Van Last Filed: 02/12/21 14:39> Coordination: [id number] test normal and Normal rapid alternating movements of the distal upper extremity present (Neuro) <NOREEN Van Last Filed: 02/12/21 14:39> Extrem Other: able to move all four extremities spontaneously <NOREEN Van Last Filed: 02/12/21 14:39> Psych Affect: Blunted affect present <NOREEN Van Last Filed: 02/12/21 14:39>
[2021-02-12 12:58] LABS: Appearance Urine CLEAR; Color Urine STRAW; Glucose Urine UA NEG (NEG); Leukocyte Esterase Urine TRACE (NEG); Nitrite Urine NEG (NEG); PH 6.5 (5.0-8.0); Specific Gravity - Urine 1.015 (1.005-1.025); UACC Culture Trigger YES; Urine Blood 1+ (NEG); Urine Ketones NEG (NEG); Urine Protein NEG (NEG-TRACE)
[2021-02-12 13:05] LABS: Squamous Epithelial Cell Urine 1+ /LPF
[2021-02-12 13:06] LABS: Bacteria Urine TRACE /LPF; UACC CULT YES
[2021-02-12] MEDS: Mirtazapine 7.5 MG TABLET PO (20:10)
[2021-02-13 06:00] VITALS: RESP 18; TEMP 36.5; O2SAT 100
[2021-02-13 08:35] LABS: Anion Gap 13 (12-20); Carbon Dioxide 28 mmol/L (22-29); Chloride 96 mmol/L (96-108); Potassium 4.2 mmol/L (3.3-5.1); Sodium 133 mmol/L (135-145)
[2021-02-13 08:57] LABS: Thyroid Stimulating Hormone 1.42 uIU/mL (0.32-4.0)
[2021-02-13 09:05] VITALS: BP 146/63; PULSE 86
[2021-02-13] MEDS: Folic Acid 1 MG TABLET PO (09:05)
[2021-02-13] MEDS: Aspirin 81 MG TAB.CHEW PO (09:05)
[2021-02-13] MEDS: amLODIPine Besylate 5 MG TABLET PO (09:05)
[2021-02-13] MEDS: Atorvastatin Calcium 10 MG TABLET PO (09:05)
[2021-02-13] MEDS: Escitalopram Oxalate 10 MG TABLET PO (09:05)
[2021-02-13] MEDS: Thiamine HCL 100 MG TABLET PO (09:05)
[2021-02-13 09:13] LABS: Syphilis Screen Nonreactive (Nonreactive)
[2021-02-13 09:30] LABS: Folate 18.4 ng/mL (> or = 4.0); Vitamin B12 1275 pg/mL (200-900)
--- NOTE | 2021-02-13 09:31 | HO.PSYCHPN ---
Subjective Subjective Date of Service: 02/13/21 Reason For Visit: Generalized Anxiety Disorder Interim History: Patient reports that she slept well last night. She denies any auditory hallucinations or visual images when she closed her eyes. She says she feels little better however she says she still feels confused. She referred to listening to this auto service writer and her talk and she said I can hear you talk but it just not thinking in. Patient's reports that when patient is at baseline she is capable, takes care of running household will sometimes pay bills on her phone. He said he noticed her becoming confused around June or July after her bout with hyponatremia. He said it has lasted until now but he has been assuming that her high anxiety and poor sleep have been the reasons for. Prior to this hospitalization he said that she had very poor sleep for 2 weeks and no sleep for 3 days just prior to admission. He says that she has had no history of auditory or visual hallucinations. Of note patient's sodium is a little low today Patient's mother had a stroke and subsequent dementia in her 60s Mental Status Exam Mental Status Exam Narrative: ?Pt is alert and oriented; behavior is cooperative, anxious but less so; dressed in hospital gown with green sweat jacked, unkempt hair but adequate hygiene; mood is described as anxious.. and affect anxious but less so; eye contact appropriate; Speech is normal rate, volume and prosody and not pressured; no psychomotor agitation/retardation present; thought process is goal directed, but also seems confused and she repeats questions, or changes answers; Thought content is on treatment and how she's feeling; denies SI/ HI; NO AH last night; no hypnogogic visual images last night. No delusional content, paranoid ideations or grandiosity; Patients insight and judgment are impaired. Diagnostics Vital Signs (24Hr): Vital Signs - 24 hr 02/12/21 11:24 02/12/21 12:11 02/12/21 13:22 Temperature Pulse Rate 94 75 87 Respiratory Rate Blood Pressure 140/64 H 138/70 141/65 H Pulse Oximetry 02/12/21 13:23 02/12/21 14:31 02/12/21 20:11 Temperature Pulse Rate 92 88 97 Respiratory Rate Blood Pressure 131/61 108/55 L 121/63 Pulse Oximetry 02/12/21 20:24 02/13/21 06:00 02/13/21 09:05 Temperature 97.8 F 97.7 F Pulse Rate 97 86 Respiratory Rate 16 18 Blood Pressure 121/63 146/63 H Pulse Oximetry 99 100 BMI result Body Mass Index 20.0 Labs Results: 02/13/21 07:55 Labs: Laboratory Results - last 48 hr 02/12/21 02/12/21 02/13/21 12:34 12:47 07:55 Sodium 133 L Potassium 4.2 Chloride 96 Carbon Dioxide 28 Anion Gap 13 POC Glucose 119 H Vitamin B12 Folate TSH Urine Color STRAW Urine Appearance CLEAR Urine pH 6.5 Ur Specific [place] 1.015 Urine Protein NEG Urine Glucose (UA) NEG Urine Ketones NEG Urine Blood 1+ H Urine Nitrite NEG Ur Leukocyte Esterase TRACE H Urine RBC 1-4 Urine WBC 1-4 Ur Squamous Epith Cells 1+ Urine Bacteria TRACE T.pallidum Ab (EIA) 02/13/21 02/13/21 02/13/21 07:55 07:55 07:55 Sodium Potassium Chloride Carbon Dioxide Anion Gap POC Glucose Vitamin B12 1275 H Folate 18.4 TSH 1.42 Urine Color Urine Appearance Urine pH Ur Specific [place] Urine Protein Urine Glucose (UA) Urine Ketones Urine Blood Urine Nitrite Ur Leukocyte Esterase Urine RBC Urine WBC Ur Squamous Epith Cells Urine Bacteria T.pallidum Ab (EIA) Nonreactive Medications Medications Current Medications Acetaminophen (Acetaminophen 325 Mg Tablet) 650 mg PO Q6H PRN PRN Reason: Headache/Pain Mild Scale (1-3) Al Hydroxide/Mg Hydroxide (Magnesium Hydrox/Alum Hydrox 30 Ml Oral.Susp) 30 ml PO Q6H PRN PRN Reason: Heartburn/Nausea Amlodipine Besylate (Amlodipine Besylate 5 Mg Tablet) 5 mg PO DAILY [facility]; Protocol Last Admin: 02/13/21 09:05 Dose: 5 mg Documented by: Aspirin (Aspirin 81 Mg Tab.Chew) 81 mg PO DAILY [facility] Last Admin: 02/13/21 09:05 Dose: 81 mg Documented by: Atorvastatin Calcium (Atorvastatin Calcium 10 Mg Tablet) 10 mg PO DAILY [facility] Last Admin: 02/13/21 09:05 Dose: 10 mg Documented by: Clonidine HCl (Clonidine Hcl 0.1 Mg Tablet) 0.1 mg PO BID PRN; Protocol PRN Reason: mild anxiety (try before ativan) Last Admin: 02/12/21 12:02 Dose: 0.1 mg Documented by: Clonidine HCl (Clonidine Hcl 0.1 Mg Tablet) 0.1 mg PO BEDTIME [facility]; Protocol Last Admin: 02/12/21 20:11 Dose: 0.1 mg Documented by: Escitalopram Oxalate (Escitalopram Oxalate 10 Mg Tablet) 10 mg PO DAILY [facility] Last Admin: 02/13/21 09:05 Dose: 10 mg Documented by: Folic Acid (Folic Acid 1 Mg Tablet) 1 mg PO DAILY [facility] Last Admin: 02/13/21 09:05 Dose: 1 mg Documented by: Lorazepam (Lorazepam 0.5 Mg Tablet) 0.5 mg PO TID PRN PRN Reason: mild to moderate anxiety Lorazepam (Lorazepam 1 Mg Tablet) 1 mg PO BID PRN PRN Reason: mod to severe anxiety Magnesium Hydroxide (Milk Of Magnesia 30 Ml Oral.Susp) 30 ml PO DAILY PRN PRN Reason: Constipation Mirtazapine (Mirtazapine 7.5 Mg Tablet) 7.5 mg PO BEDTIME [facility] Last Admin: 02/12/21 20:10 Dose: 7.5 mg Documented by: Saliva Substitute (Dry Mouth [place] 60 Ml [place]) 1 spray MUCOUS MEM Q2H PRN PRN Reason: Dry Mouth Thiamine HCl (Thiamine Hcl 100 Mg Tablet) 100 mg PO DAILY [facility] Last Admin: 02/13/21 09:05 Dose: 100 mg Documented by: Trazodone HCl (Trazodone Hcl 100 Mg Tablet) 100 mg PO BEDTIME PRN PRN Reason: insomnia Trazodone HCl (Trazodone Hcl 50 Mg Tablet) 50 mg PO BEDTIME PRN PRN Reason: continued Insomnia Allergies Allergies Allergy/AdvReac Type Severity Reaction Status Date / Time No Known Allergies Allergy Verified 02/10/21 17:16 Assessment & Plan Assessment & Plan (1) LORENZO (generalized anxiety disorder): Status: Acute Code(s): F41.1 - Generalized anxiety disorder (2) HLD (hyperlipidemia): Status: Chronic Code(s): E78.5 - Hyperlipidemia, unspecified (3) Hyponatremia: Status: Acute Code(s): E87.1 - Hypo-osmolality and hyponatremia (4) HTN (hypertension): Status: Chronic Code(s): I10 - Essential (primary) hypertension (5) MDD (major depressive disorder): Status: Acute Code(s): F32.9 - Major depressive disorder, single episode, unspecified Assessment and Plan: Patient is a 60-year-old female with history of severe anxiety, formally well treated with citalopram until it caused hyponatremia. She was admitted to for worsening anxiety that triggered suicidal ideation. Patient was drinking water excessively, developed hyponatremia and was transferred to the medical floor for treatment. Patient's sodium return to normal and she was return to for continued treatment. Initially it was thought that patient developed hyponatremia due to citalopram, however today her came in and reviewed with auto service writer discharge paperwork from her past hospitalizations for hyponatremia. Patient's reports and patient fully agrees that patient tolerated citalopram for 16 years without any problems. When she 1st got hyponatremia in May 2019 it resulted from her drinking excessive amounts of celery juice for few weeks, which caused her to have chronic diarrhea, become dehydrated, thirsty and then by drinking copious amounts of water. During this admission there is no indication that citalopram was the cause and she remained on citalopram for the next year. In June 2020 she had a bout of severe anxiety which she reports and her concurs that she again started drinking copious amounts of water resulting in a her being hospitalized and treated for hyponatremia. There was some concern that perhaps citalopram was causing her to have a dry mouth, which was causing her to drink excessive fluid so citalopram was tapered off. She was started on Latuda which seemed to be both ineffective and problematic though not clear how so and her anxiety increased until she was hospitalized at [facility] this past January 2021. Her Latuda, hydroxyzine and Benadryl were all discontinued. She was started on Wellbutrin, trazodone and BuSpar however the Wellbutrin aggravated her anxiety and she ended up admitted at [place]. Patient was started on mirtazapine however because she continued to drink copious amounts of water developed hyponatremia. There was some question of whether or not this could be due to medication as well however Sales Incentive Analyst discussed case with Hollie Salomon, who was covering patient on medical floor who agreed that current bout of hyponatremia was most likely due to polydipsia and that it was very reasonable to retry mirtazapine. Corporate Compliance Officer also commented hyponatremia most likely due to excessive water intake. Given collateral provided by patient's , it seems very unlikely that citalopram was the cause of her hyponatremia or even the cause of her dry mouth; since this medication treated patient's anxiety for years, patient agrees to restart (agrees to substitute escitalopram for now). Patient reports that she is still very anxious and depressed and had suicidal thoughts , wanting to . She denies any SI on admission. Will continue to monitor for hyponatremia as medications are restarted. Given the fact that patients anxiety triggers both depression and suicidality, the risks of not treating her symptoms are weighty; the potential benefit of restarting citalopram/escitalopram outweighs the potential risk of causing hyponatremia (especially since pt is in hospital and monitored). Virtually all other medications indicated for patients symptoms have some risk of causing hyponatremia and since citalopram has been effective in the past, will start with a re-trial of this medication. Patient understands the risks of medication regimen; she agrees with this reasoning and with this plan and agrees to move forward with current medication regimen 02/11 Sodium and electrolytes within normal limits Patient denies SI and says that she is doing little better however she remains anxious. Will try clonidine for anxiety 02/12 Patient reports feeling sluggish tired and dizzy. She did have some balance issues when she stood up. Question whether balance is due to orthostatic hypotension being tired from insomnia Intermittent trouble breathing in or out seems to be more likely due to combination of insomnia, anxiety However patient is a college graduate and 60 years old and from collateral she is more confused and this is not her baseline. Sales Incentive Analyst called hospitalist Dr. Erwin to assess and who examined patient and ruled out concern for stroke and said that there is no imminent need for imaging however that head CT might help once other lab work ruled out. 02/13 Patient reports that she had a good sleep last night; no AVH. Feels a little better. However sodium lowered a little bit to 133; restricting water to 1.5 pictures per day and repeat labs tomorrow provided collateral that says patient is not at baseline but that her confusion seemed to start this past spring PLAN: Patient on CV Q 15 minute checks Hyponatremia due to polydipsia and not medication related; hyponatremia resolved plan: RESTRIcT Fluids to 1.5 pitchers per day Na: 133 on 02/13 -repeat labs on 12/11 Confusion: Insomnia? Presents as confused [place] says seems to have started this past spring -No signs of infection; no history of substance abuse; blood sugar unremarkable -no neurological deficits -labs wnl: B12, folate, RPR, TSH, calcium, other electrolytes within normal limits; -UA no signs of infection -Orthostatics obtained and unremarkable -EKG 02/12 NSR (pending air traffic supervisor review) denies any falls or head trauma in recent or remote past PLAN: -Dr. 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 Discussed with Dr. Erwin who agrees It is possible this could be contributory however uncertain age could also mean years ago; she recs Neuro consult -Neurology Consult placed Anxiety/depression: Continue Lexapro 10 mg given patient's confusion will hold off titrating for now(substituted for citalopram; patient used to be on citalopram 40 mg) STARTed Mirtazapine 7.5mg for help w/ sleep and anxiety/depression; helpful STARTed Clondine 0.1mg at bedtime; helpful Clonidine 0.1mg BID prn Ativan prn but patient refuses Auditory hallucinations reports AH at bedtime saying that's what you get... which she says started this admission Not sure if mood congruent; not sure when this started Hypnogogic visual hallucination present continue to monitor Insomnia: Discontinued Trazodone: pt says does not help and does not want STARTed Mirtazapine 7.5mg for help w/ sleep and anxiety/depression STARTed Clondine 0.1mg at bedtime HTN: discussed BP with oZra SORTO who recommends leaving antihypertensive at current dose Head CT:Date of Service: 02/13/21 CT HEAD WITHOUT CONTRAST FINDINGS: There is no evidence of an extra-axial collection. There is no evidence of intra-axial or extra-axial hemorrhage. The ventricles and extra-axial CSF spaces are appropriate. Pierre-white matter differentiation is normal. There is a left basal ganglia lacunar infarct of uncertain age. No other infarct, mass or mass effect is seen. Review at bone windows is normal. Visualized paranasal sinuses, mastoid air cells and middle ears are clear. 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 Otherwise unremarkable exam. Lilia Colin MD I spent minutes with the patient and/or on the patient floor today, greater than?50% of which was spent counseling/coordinating care. Reason for contiued inpatient stay Substantial Risk for: rapid decompensation
[2021-02-13] MEDS: Dry Mouth Spray 60 ML SPRAY 1 SPRAY MUCOUS MEM ×2 (12:04→16:10)
[2021-02-13 21:05] VITALS: BP 186/84; PULSE 66; TEMP 36.2
[2021-02-13 21:16] VITALS: BP 186/84; PULSE 66
[2021-02-13] MEDS: Mirtazapine 7.5 MG TABLET PO (21:16)
[2021-02-13] MEDS: cloNIDine HCL 0.1 MG TABLET PO (21:16)
[2021-02-14 06:00] VITALS: RESP 18; TEMP 36.6; O2SAT 98
--- NOTE | 2021-02-14 06:14 | P.PNPSI_ITS ---
Subjective Subjective Date of Service: 02/14/21 Reason For Visit: Generalized Anxiety Disorder Interim History: Patient reports that she slept well last night. She denies any auditory hallucinations or visual images when she closed her eyes. She says she feels little better however she says she still feels confused. She referred to listening to this inspector automatic typewriter and her talk and she said I can hear you talk but it just not thinking in. Patient's reports that when patient is at baseline she is capable, takes care of running household will sometimes pay bills on her phone. He said he noticed her becoming confused around June or July after her bout with hyponatremia. He said it has lasted until now but he has been assuming that her high anxiety and poor sleep have been the reasons for. Prior to this hospitalization he said that she had very poor sleep for 2 weeks and no sleep for 3 days just prior to admission. He says that she has had no history of auditory or visual hallucinations. Of note patient's sodium is a little low today Patient's mother had a stroke and subsequent dementia in her 60s 02/14/21: Labs noted. Na at 131 from 133. Will lock BR/add salt tabs. Repeat Na tomorrow. Pt Ox 4. Not confused today. Denies AH/VH Review of Systems Review of Systems Yes all other systems are reviewed and are negative Gastrointestinal: Denies abdominal pain, Denies nausea and Denies vomiting Mental Status Exam Mental Status Exam Narrative: ?Pt is alert and oriented; behavior is cooperative, anxious but less so; dressed in hospital gown with green sweat jacked, unkempt hair but adequate hygiene; mood is described as anxious.. and affect anxious but less so; eye contact appropriate; Speech is normal rate, volume and prosody and not pressured; no psychomotor agitation/retardation present; thought process is goal directed, but also seems confused and she repeats questions, or changes answers; Thought content is on treatment and how she's feeling; denies SI/ HI; NO AH last night; no hypnogogic visual images last night. No delusional content, paranoid ideations or grandiosity; Patients insight and judgment are impaired. Diagnostics Vital Signs (24Hr): Vital Signs - 24 hr 02/13/21 09:05 02/13/21 21:05 02/13/21 21:16 Temperature 97.1 F Pulse Rate 86 66 66 Blood Pressure 146/63 H 186/84 H 186/84 H BMI result Body Mass Index 20.0 Labs Results: 02/14/21 07:42 Labs: Laboratory Results - last 48 hr 02/12/21 02/12/21 02/13/21 12:34 12:47 07:55 Sodium 133 L Potassium 4.2 Chloride 96 Carbon Dioxide 28 Anion Gap 13 POC Glucose 119 H Vitamin B12 Folate TSH Urine Color STRAW Urine Appearance CLEAR Urine pH 6.5 Ur Specific [place] 1.015 Urine Protein NEG Urine Glucose (UA) NEG Urine Ketones NEG Urine Blood 1+ H Urine Nitrite NEG Ur Leukocyte Esterase TRACE H Urine RBC 1-4 Urine WBC 1-4 Ur Squamous Epith Cells 1+ Urine Bacteria TRACE T.pallidum Ab (EIA) 02/13/21 02/13/21 02/13/21 07:55 07:55 07:55 Sodium Potassium Chloride Carbon Dioxide Anion Gap POC Glucose Vitamin B12 1275 H Folate 18.4 TSH 1.42 Urine Color Urine Appearance Urine pH Ur Specific [place] Urine Protein Urine Glucose (UA) Urine Ketones Urine Blood Urine Nitrite Ur Leukocyte Esterase Urine RBC Urine WBC Ur Squamous Epith Cells Urine Bacteria T.pallidum Ab (EIA) Nonreactive Imaging Radiology Impressions: ITS Impressions Head CT 02/13/21 11:39 IMPRESSION: Left basal ganglia pulmonary infarct of uncertain age. Otherwise unremarkable exam. Medications Medications Current Medications Acetaminophen (Acetaminophen 325 Mg Tablet) 650 mg PO Q6H PRN PRN Reason: Headache/Pain Mild Scale (1-3) Al Hydroxide/Mg Hydroxide (Magnesium Hydrox/Alum Hydrox 30 Ml Oral.Susp) 30 ml PO Q6H PRN PRN Reason: Heartburn/Nausea Amlodipine Besylate (Amlodipine Besylate 5 Mg Tablet) 5 mg PO DAILY [facility]; Protocol Last Admin: 02/13/21 09:05 Dose: 5 mg Documented by: Aspirin (Aspirin 81 Mg Tab.Chew) 81 mg PO DAILY [facility] Last Admin: 02/13/21 09:05 Dose: 81 mg Documented by: Atorvastatin Calcium (Atorvastatin Calcium 10 Mg Tablet) 10 mg PO DAILY [facility] Last Admin: 02/13/21 09:05 Dose: 10 mg Documented by: Clonidine HCl (Clonidine Hcl 0.1 Mg Tablet) 0.1 mg PO BEDTIME [facility]; Protocol Last Admin: 02/13/21 21:16 Dose: 0.1 mg Documented by: Clonidine HCl (Clonidine Hcl 0.1 Mg Tablet) 0.05 mg PO BID PRN; Protocol PRN Reason: mild anxiety (try before ativan) Escitalopram Oxalate (Escitalopram Oxalate 10 Mg Tablet) 10 mg PO DAILY [facility] Last Admin: 02/13/21 09:05 Dose: 10 mg Documented by: Folic Acid (Folic Acid 1 Mg Tablet) 1 mg PO DAILY [facility] Last Admin: 02/13/21 09:05 Dose: 1 mg Documented by: Lorazepam (Lorazepam 1 Mg Tablet) 1 mg PO BID PRN PRN Reason: severe anxiety Magnesium Hydroxide (Milk Of Magnesia 30 Ml Oral.Susp) 30 ml PO DAILY PRN PRN Reason: Constipation Mirtazapine (Mirtazapine 7.5 Mg Tablet) 7.5 mg PO BEDTIME [facility] Last Admin: 02/13/21 21:16 Dose: 7.5 mg Documented by: Saliva Substitute (Dry Mouth [place] 60 Ml [place]) 1 spray MUCOUS MEM Q2H PRN PRN Reason: Dry Mouth Last Admin: 02/13/21 16:10 Dose: 1 spray Documented by: Thiamine HCl (Thiamine Hcl 100 Mg Tablet) 100 mg PO DAILY [facility] Last Admin: 02/13/21 09:05 Dose: 100 mg Documented by: Trazodone HCl (Trazodone Hcl 100 Mg Tablet) 100 mg PO BEDTIME PRN PRN Reason: insomnia Trazodone HCl (Trazodone Hcl 50 Mg Tablet) 50 mg PO BEDTIME PRN PRN Reason: continued Insomnia Allergies Allergies Allergy/AdvReac Type Severity Reaction Status Date / Time No Known Allergies Allergy Verified 02/10/21 17:16 Assessment & Plan Assessment & Plan (1) LORENZO (generalized anxiety disorder): Status: Acute Code(s): F41.1 - Generalized anxiety disorder (2) HLD (hyperlipidemia): Status: Chronic Code(s): E78.5 - Hyperlipidemia, unspecified (3) Hyponatremia: Status: Acute Code(s): E87.1 - Hypo-osmolality and hyponatremia (4) HTN (hypertension): Status: Chronic Code(s): I10 - Essential (primary) hypertension (5) MDD (major depressive disorder): Status: Acute Code(s): F32.9 - Major depressive disorder, single episode, unspecified Assessment and Plan: Patient is a 60-year-old female with history of severe anxiety, formally well treated with citalopram until it caused hyponatremia. She was admitted to for worsening anxiety that triggered suicidal ideation. Patient was drinking water excessively, developed hyponatremia and was transferred to the medical floor for treatment. Patient's sodium return to normal and she was return to for continued treatment. Initially it was thought that patient developed hyponatremia due to citalopram, however today her came in and reviewed with inspector automatic typewriter discharge paperwork from her past hospitalizations for hyponatremia. Patient's reports and patient fully agrees that patient tolerated citalopram for 16 years without any problems. When she 1st got hyponatremia in May 2019 it resulted from her drinking excessive amounts of celery juice for few weeks, which caused her to have chronic diarrhea, become dehydrated, thirsty and then by drinking copious amounts of water. During this admission there is no indication that citalopram was the cause and she remained on citalopram for the next year. In June 2020 she had a bout of severe anxiety which she reports and her concurs that she again started drinking copious amounts of water resulting in a her being hospitalized and treated for hyponatremia. There was some concern that perhaps citalopram was causing her to have a dry mouth, which was causing her to drink excessive fluid so citalopram was tapered off. She was started on Latuda which seemed to be both ineffective and problematic though not clear how so and her anxiety increased until she was hospitalized at [facility] this past January 2021. Her Latuda, hydroxyzine and Benadryl were all discontinued. She was started on Wellbutrin, trazodone and BuSpar however the Wellbutrin aggravated her anxiety and she ended up admitted at [place]. Patient was started on mirtazapine however because she continued to drink copious amounts of water developed hyponatremia. There was some question of whether or not this could be due to medication as well however General Ophthalmologist discussed case with Hollie Salomon, who was covering patient on medical floor who agreed that current bout of hyponatremia was most likely due to jose ydipsia and that it was very reasonable to retry mirtazapine. Apple Turner also commented hyponatremia most likely due to excessive water intake. Given collateral provided by patient's , it seems very unlikely that citalopram was the cause of her hyponatremia or even the cause of her dry mo uth; since this medication treated patient's anxiety for years, patient agrees to restart (agrees to substitute escitalopram for now). Patient reports that she is still very anxious and depressed and had suicidal thoughts , wanting to . She denies any SI on admission. Will continue to monitor for hyponatremia as medications are restarted. Given the fact that patients anxiety triggers both depression and suicidality, the risks of not treating her symptoms are weighty; the potential benefit of restarting citalopram/escitalopram outweighs the potential risk of causing hyponatremia (especially since pt is in hospital and monitored). Virtually all other medications indicated for patients symptoms have some risk of causing hyponatremia and since citalopram has been effective in the past, will start with a re-trial of this medication. Patient understands the risks of medication regimen; she agrees with this reasoning and with this plan and agrees to move forward with current medi cation regimen 02/11 Sodium and electrolytes within normal limits Patient denies SI and says that she is doing little better however she remains anxious. Will try clonidine for anxiety 02/12 Patient reports feeling sluggish tired and dizzy. She did have some balance issues when she stood up. Question whether balance is due to orthostatic hypotension being tired from insomnia Intermittent trouble breathing in or out seems to be more likely due to combination of insomnia, anxiety However patient is a college graduate and 60 years old and from collateral she is more confused and this is not her baseline. General Ophthalmologist called hospitalist Dr. Erwin to assess and who examined patient and ruled out concern for stroke and said that there is no imminent need for imaging however that head CT might help once other lab work ruled out. 02/13 Patient reports that she had a good sleep last night; no AVH. Feels a little better. However sodium lowered a little bit to 133; restricting water to 1.5 pictures per day and repeat labs tomorrow provided collateral that says patient is not at baseline but that her confusion seemed to start this past spring PLAN: Patient on CV Q 15 minute checks Hyponatremia due to polydipsia and not medication related; hyponatremia resolved plan: RESTRIcT Fluids to 1.5 pitchers per day Na: 133 on 02/13 -repeat labs on 02/14 Confusion: Insomnia? Presents as confused [place] says seems to have started this past spring -No signs of infection; no history of substance abuse; blood sugar unremarkable -no neurological deficits -labs wnl: B12, folate, RPR, TSH, calcium, other electrolytes within normal limits; -UA no signs of infection -Orthostatics obtained and unremarkable -EKG 02/12 NSR (pending corncob pipes assembler review) denies any falls or head trauma in recent or remote past PLAN: -Dr. Erwin who has ruled out emergent stroke or need for MRI/cerebellar MRI h owever vascular dementia consideration -Head CT: Left basal ganglia pulmonary infarct of uncertain age. Discussed with Dr. Erwin who agrees It is possible this could be contributory however uncertain age could also mean years ago; she recs Neuro consult -Neurology Consult placed Anxiety/depression: Continue Lexapro 10 mg given patient's confusion will hold off titrating for now(substituted for citalopram; patient used to be on citalopram 40 mg) STARTed Mirtazapine 7.5mg for help w/ sleep and anxiety/depression; helpful STARTed Clondine 0.1mg at bedtime; helpful Clonidine 0.1mg BID prn Ativan prn but patient refuses Auditory hallucinations reports AH at bedtime saying that's what you get... which she says started this admission Not sure if mood congruent; not sure when this started Hypnogogic visual hallucination present continue to monitor Insomnia: Discontinued Trazodone: pt says does not help and does not want STARTed Mirtazapine 7.5mg for help w/ sleep and anxiety/depression STARTed Clondine 0.1mg at bedtime HTN: discussed BP with Zora SORTO who recommends leaving antihypertensive at current dose Head CT:Date of Service: 02/13/21 CT HEAD WITHOUT CONTRAST FINDINGS: There is no evidence of an extra-axial collection. There is no evidence of intra-axial or extra-axial hemorrhage. The ventricles and extra-axial CSF spaces are appropriate. Pierre-white matter differentiation is normal. There is a left basal ganglia lacunar infarct of uncertain age. No other infarct, mass or mass effect is seen. Review at bone windows is normal. Visualized paranasal sinuses, mastoid air cells and middle ears are clear. 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 Otherwise unremarkable exam. Lilia Colin MD I spent minutes with the patient and/or on the patient floor today, grea ter than?50% of which was spent counseling/coordinating care. Reason for contiued inpatient stay Substantial Risk for: rapid decompensation and med/psych decompensation
[2021-02-14 08:12] VITALS: BP 162/83; PULSE 79
[2021-02-14] MEDS: cloNIDine HCL 0.1 MG TABLET 0.05 MG PO (08:12)
[2021-02-14] MEDS: Folic Acid 1 MG TABLET PO (08:12)
[2021-02-14] MEDS: Atorvastatin Calcium 10 MG TABLET PO (08:12)
[2021-02-14] MEDS: Aspirin 81 MG TAB.CHEW PO (08:12)
[2021-02-14] MEDS: Thiamine HCL 100 MG TABLET PO (08:12)
[2021-02-14] MEDS: Escitalopram Oxalate 10 MG TABLET PO (08:12)
[2021-02-14 08:17] LABS: Anion Gap 14 (12-20); Carbon Dioxide 26 mmol/L (22-29); Chloride 95 mmol/L (96-108); Potassium 4.2 mmol/L (3.3-5.1); Sodium 131 mmol/L (135-145)
[2021-02-14] MEDS: amLODIPine Besylate 5 MG TABLET PO (08:17)
[2021-02-14] MEDS: Sodium Chloride Tab 1 GM TABLET PO ×2 (14:32→20:31)
[2021-02-14 20:30] VITALS: BP 132/61; PULSE 87; TEMP 37
[2021-02-14 20:31] VITALS: BP 132/61; PULSE 87
[2021-02-14] MEDS: cloNIDine HCL 0.1 MG TABLET PO (20:31)
[2021-02-14] MEDS: Mirtazapine 7.5 MG TABLET PO (20:31)
[2021-02-15 06:00] VITALS: BP 123/53; PULSE 69; RESP 18; TEMP 36.6; O2SAT 99
[2021-02-15 07:12] LABS: Anion Gap 11 (12-20); Carbon Dioxide 27 mmol/L (22-29); Chloride 100 mmol/L (96-108); Sodium 134 mmol/L (135-145)
[2021-02-15] MEDS: Sodium Chloride Tab 1 GM TABLET PO ×2 (08:40→20:40)
[2021-02-15] MEDS: Folic Acid 1 MG TABLET PO (08:40)
[2021-02-15 08:41] VITALS: BP 124/61; PULSE 70
[2021-02-15] MEDS: Atorvastatin Calcium 10 MG TABLET PO (08:41)
[2021-02-15] MEDS: amLODIPine Besylate 5 MG TABLET PO (08:41)
[2021-02-15] MEDS: Aspirin 81 MG TAB.CHEW PO (08:41)
[2021-02-15] MEDS: Escitalopram Oxalate 10 MG TABLET PO (08:41)
[2021-02-15] MEDS: Thiamine HCL 100 MG TABLET PO (08:41)
--- NOTE | 2021-02-15 11:34 | P.CNNE_ITS ---
History of Present Illness Data of Consult Service Date: 02/15/21 Primary Care Provider: Unknown Physician HPI Reason for consult: Stroke 60 years old woman admitted on psychiatric floor with anxiety disorder and hurt tendency to drink excessive amount of water resulting in hyponatremia. Apparently a CT scan of brain was done and this consultation was requested because of the finding on CT scan. She did not have any stroke-like symptoms and denied that she ever had stroke. She was born in [facility] and there was no related events and she had normal childhood. There was no recent stroke-like symptoms. Review of Systems Review of Systems: Detailed on our psychiatric notes. There was no recent headache numbness or weakness or speech or language difficulty. FORMERLY [facility], [facility] Past Medical History Medical History LORENZO (generalized anxiety disorder) HLD (hyperlipidemia) HTN (hypertension) Hyponatremia MDD (major depressive disorder) Spinal stenosis Functional capacity: independent ambulation Family History Family History Mother CVA (cerebral vascular accident) Surgical History Surgical History H/O cervical spine surgery Social History Social History Household Members: Spouse Housing: House Do you presently have visiting nurse or other home services: No Alcohol intake: never Patient Tobacco Use Status: Former Tobacco user Tobacco use type: Cigarette e-Cigarette/Vaping Use: Never Used Second Hand Smoke Exposure: No Use of substances other than those prescribed or required for medical reasons: No Currently Displaying Signs/Symptoms of Drug Intoxication Withdrawal: No Have you been hit, kicked, punched, or otherwise hurt by someone within the past year? If so, by whom?: No Do you feel safe in your current relationship?: No Is there a partner from a previous relationship who is making you feel unsafe now?: No Are you made to feel afraid or neglected: No Worship Healthcare Practices: Orthodox Advance Directives: No Advance Directives Information Provided: No Do you have thoughts of harming others: None Do you have a plan to hurt others: No Plan Recently lost weight without trying: No Nutrition Risks: No Nutritional Risk service: No Current occupational status: disabled Sexual orientation: Did not discuss Meds Allergies Allergy/AdvReac Type Severity Reaction Status Date / Time No Known Allergies Allergy Verified 02/10/21 17:16 Active Medications: Current Medications Acetaminophen (Acetaminophen 325 Mg Tablet) 650 mg PO Q6H PRN PRN Reason: Headache/Pain Mild Scale (1-3) Al Hydroxide/Mg Hydroxide (Magnesium Hydrox/Alum Hydrox 30 Ml Oral.Susp) 30 ml PO Q6H PRN PRN Reason: Heartburn/Nausea Amlodipine Besylate (Amlodipine Besylate 5 Mg Tablet) 5 mg PO DAILY [facility]; Protocol Last Admin: 02/15/21 08:41 Dose: 5 mg Documented by: Aspirin (Aspirin 81 Mg Tab.Chew) 81 mg PO DAILY [facility] Last Admin: 02/15/21 08:41 Dose: 81 mg Documented by: Atorvastatin Calcium (Atorvastatin Calcium 10 Mg Tablet) 10 mg PO DAILY [facility] Last Admin: 02/15/21 08:41 Dose: 10 mg Documented by: Clonidine HCl (Clonidine Hcl 0.1 Mg Tablet) 0.1 mg PO BEDTIME [facility]; Protocol Last Admin: 02/14/21 20:31 Dose: 0.1 mg Documented by: Clonidine HCl (Clonidine Hcl 0.1 Mg Tablet) 0.05 mg PO BID PRN; Protocol PRN Reason: mild anxiety (try before ativan) Last Admin: 02/14/21 08:12 Dose: 0.05 mg Documented by: Escitalopram Oxalate (Escitalopram Oxalate 10 Mg Tablet) 10 mg PO DAILY [facility] Last Admin: 02/15/21 08:41 Dose: 10 mg Documented by: Folic Acid (Folic Acid 1 Mg Tablet) 1 mg PO DAILY [facility] Last Admin: 02/15/21 08:40 Dose: 1 mg Documented by: Lorazepam (Lorazepam 1 Mg Tablet) 1 mg PO BID PRN PRN Reason: severe anxiety Magnesium Hydroxide (Milk Of Magnesia 30 Ml Oral.Susp) 30 ml PO DAILY PRN PRN Reason: Constipation Mirtazapine (Mirtazapine 7.5 Mg Tablet) 7.5 mg PO BEDTIME [facility] Last Admin: 02/14/21 20:31 Dose: 7.5 mg Documented by: Saliva Substitute (Dry Mouth [place] 60 Ml [place]) 1 spray MUCOUS MEM Q2H PRN PRN Reason: Dry Mouth Last Admin: 02/13/21 16:10 Dose: 1 spray Documented by: Sodium Chloride (Sodium Chloride Tab 1 Gm Tablet) 1 gm PO BID [facility] Last Admin: 02/15/21 08:40 Dose: 1 gm Documented by: Thiamine HCl (Thiamine Hcl 100 Mg Tablet) 100 mg PO DAILY [facility] Last Admin: 02/15/21 08:41 Dose: 100 mg Documented by: Trazodone HCl (Trazodone Hcl 100 Mg Tablet) 100 mg PO BEDTIME PRN PRN Reason: insomnia Trazodone HCl (Trazodone Hcl 50 Mg Tablet) 50 mg PO BEDTIME PRN PRN Reason: continued Insomnia Home Medications Medication Instructions Recorded Confirmed Last Taken Type amlodipine 5 mg tablet 5 mg PO DAILY 02/06/21 02/07/21 02/05/21 11:41 History aspirin 81 mg tablet,delayed 1 tab PO DAILY 02/06/21 02/07/21 Unknown History release atorvastatin 10 mg tablet 10 mg PO DAILY 02/06/21 02/07/21 Unknown History buspirone 10 mg tablet 10 mg PO BID 02/06/21 02/07/21 02/05/21 11:41 History 10 mg buspirone 5 mg tablet 1 tab PO BID 02/06/21 02/07/21 Unknown History diphenhydramine HCl 25 mg capsule 25 mg PO BEDTIME PRN 02/06/21 02/07/2102/05 05:57 History (Benadryl) folic acid 1 mg tablet 1 tab PO DAILY 02/06/21 02/07/21 Unknown History hydroxyzine pamoate 50 mg capsule 50 mg PO BID PRN 02/06/21 02/07/21 Unknown History thiamine mononitrate (vit B1) 100 100 mg PO DAILY 02/06/21 02/07/21 Unknown History mg tablet trazodone 50 mg tablet 1 tab PO BEDTIME 02/06/21 02/07/21 Unknown History Physical Exam Vital Signs: Vital Signs: Last Vital Signs Temp 97.9 F 02/15/21 06:00 Pulse 70 02/15/21 08:41 Resp 18 02/15/21 06:00 BP 124/61 02/15/21 08:41 Pulse Ox 99 02/15/21 06:00 BMI result Body Mass Index 20.0 Neuro: Other: She was alert and awake with normal spontaneity of speech fluency comprehension and affect. Pupils were round reactive. Face was symmetrical. There was no pronator drift. Deep tendon reflexes were trace with flexor plantars. Balance gait and coordination were normal. Speech was normal. Results Labs CBC & Chem 7: 02/15/21 06:44 Labs: BMP 02/15/21 06:44 Sodium 134 L Potassium 4.0 Chloride 100 Carbon Dioxide [address] revealed a left basal ganglia hypodensity probably a chronic ischemic infarction Microbiology Microbiology Results: Microbiology 02/12/21 Unknown Urine clean catch - Urine acosta top Urine Culture - Final No growth. Assessment and Plan (1) Cerebral infarction: Status: Acute 60 years old woman with a relatively uncontrolled hypertension admitted in hospital for psychiatric symptoms more specifically anxiety and suicidal ideation and with history of excessive water intake resulting in hyponatremia. Her noncontrast head CT revealed a left basal ganglia hypodensity, chronic ischemic infarction, likely related to hypertension. Her examination was nonfocal. At this time mainstay of management is blood pressure control, anti- platelet agent and checking her lipid profile. Being of Eastern origin, there was also possibility of intracranial vascular disease, common in this patient population. I would suggest obtaining a CTA of brain and neck to review her cerebral and carotid vasculature. Procedures Date of Service Date of Service: 02/15/21
--- NOTE | 2021-02-15 15:16 | HO.PSYCHPN ---
Subjective Subjective Date of Service: 02/15/21 Reason For Visit: Generalized Anxiety Disorder Interim History: Patient reports that she slept well last night. She denies any auditory hallucinations or visual images when she closed her eyes. She says she feels little better however she says she still feels confused. She referred to listening to this freelance writer and her talk and she said I can hear you talk but it just not thinking in. Patient's reports that when patient is at baseline she is capable, takes care of running household will sometimes pay bills on her phone. He said he noticed her becoming confused around June or July after her bout with hyponatremia. He said it has lasted until now but he has been assuming that her high anxiety and poor sleep have been the reasons for. Prior to this hospitalization he said that she had very poor sleep for 2 weeks and no sleep for 3 days just prior to admission. He says that she has had no history of auditory or visual hallucinations. Of note patient's sodium is a little low today Patient's mother had a stroke and subsequent dementia in her 60s 02/14/21: Labs noted. Na at 131 from 133. Will lock BR/add salt tabs. Repeat Na tomorrow. Pt Ox 4. Not confused today. Denies AH/VH 02/15/21: Na 134. Pt had many Qs re salt tabs. Its so hard to drink only such little water . Ct Lexapro Review of Systems Review of Systems Detailed on our psychiatric notes. There was no recent headache numbness or weakness or speech or language difficulty. Yes all other systems are reviewed and are negative Gastrointestinal: Denies abdominal pain, Denies nausea and Denies vomiting Mental Status Exam Mental Status Exam Narrative: ?Pt is alert and oriented; behavior is cooperative, anxious but less so; dressed in hospital gown with green sweat jacked, unkempt hair but adequate hygiene; mood is described as anxious.. and affect anxious but less so; eye contact appropriate; Speech is normal rate, volume and prosody and not pressured; no psychomotor agitation/retardation present; thought process is goal directed, but also seems confused and she repeats questions, or changes answers; Thought content is on treatment and how she's feeling; denies SI/ HI; NO AH last night; no hypnogogic visual images last night. No delusional content, paranoid ideations or grandiosity; Patients insight and judgment are impaired. Diagnostics Vital Signs (24Hr): Vital Signs - 24 hr 02/14/21 20:30 02/14/21 20:31 02/15/21 06:00 Temperature 98.6 F 97.9 F Pulse Rate 87 87 69 Respiratory Rate 18 Blood Pressure 132/61 132/61 123/53 L Pulse Oximetry 99 02/15/21 08:41 Temperature Pulse Rate 70 Respiratory Rate Blood Pressure 124/61 Pulse Oximetry BMI result Body Mass Index 20.0 Labs Results: 02/15/21 06:44 Labs: Laboratory Results - last 48 hr 02/14/21 02/15/21 07:42 06:44 Sodium 131 L 134 L Potassium 4.2 4.0 Chloride 95 L 100 Carbon Dioxide 26 27 Anion Gap 14 11 L Imaging Radiology Impressions: ITS Impressions Head CT 02/13/21 11:39 IMPRESSION: Left basal ganglia pulmonary infarct of uncertain age. Otherwise unremarkable exam. Medications Medications Current Medications Acetaminophen (Acetaminophen 325 Mg Tablet) 650 mg PO Q6H PRN PRN Reason: Headache/Pain Mild Scale (1-3) Al Hydroxide/Mg Hydroxide (Magnesium Hydrox/Alum Hydrox 30 Ml Oral.Susp) 30 ml PO Q6H PRN PRN Reason: Heartburn/Nausea Amlodipine Besylate (Amlodipine Besylate 5 Mg Tablet) 5 mg PO DAILY [facility]; Protocol Last Admin: 02/15/21 08:41 Dose: 5 mg Documented by: Aspirin (Aspirin 81 Mg Tab.Chew) 81 mg PO DAILY [facility] Last Admin: 02/15/21 08:41 Dose: 81 mg Documented by: Atorvastatin Calcium (Atorvastatin Calcium 10 Mg Tablet) 10 mg PO DAILY [facility] Last Admin: 02/15/21 08:41 Dose: 10 mg Documented by: Clonidine HCl (Clonidine Hcl 0.1 Mg Tablet) 0.1 mg PO BEDTIME [facility]; Protocol Last Admin: 02/14/21 20:31 Dose: 0.1 mg Documented by: Clonidine HCl (Clonidine Hcl 0.1 Mg Tablet) 0.05 mg PO BID PRN; Protocol PRN Reason: mild anxiety (try before ativan) Last Admin: 02/14/21 08:12 Dose: 0.05 mg Documented by: Escitalopram Oxalate (Escitalopram Oxalate 10 Mg Tablet) 10 mg PO DAILY [facility] Last Admin: 02/15/21 08:41 Dose: 10 mg Documented by: Folic Acid (Folic Acid 1 Mg Tablet) 1 mg PO DAILY [facility] Last Admin: 02/15/21 08:40 Dose: 1 mg Documented by: Lorazepam (Lorazepam 1 Mg Tablet) 1 mg PO BID PRN PRN Reason: severe anxiety Magnesium Hydroxide (Milk Of Magnesia 30 Ml Oral.Susp) 30 ml PO DAILY PRN PRN Reason: Constipation Mirtazapine (Mirtazapine 7.5 Mg Tablet) 7.5 mg PO BEDTIME [facility] Last Admin: 02/14/21 20:31 Dose: 7.5 mg Documented by: Saliva Substitute (Dry Mouth [employer] 60 Ml [employer]) 1 spray MUCOUS MEM Q2H PRN PRN Reason: Dry Mouth Last Admin: 02/13/21 16:10 Dose: 1 spray Documented by: Sodium Chloride (Sodium Chloride Tab 1 Gm Tablet) 1 gm PO BID [facility] Last Admin: 02/15/21 08:40 Dose: 1 gm Documented by: Thiamine HCl (Thiamine Hcl 100 Mg Tablet) 100 mg PO DAILY [facility] Last Admin: 02/15/21 08:41 Dose: 100 mg Documented by: Trazodone HCl (Trazodone Hcl 100 Mg Tablet) 100 mg PO BEDTIME PRN PRN Reason: insomnia Trazodone HCl (Trazodone Hcl 50 Mg Tablet) 50 mg PO BEDTIME PRN PRN Reason: continued Insomnia Allergies Allergies Allergy/AdvReac Type Severity Reaction Status Date / Time No Known Allergies Allergy Verified 02/10/21 17:16 Assessment & Plan Assessment & Plan (1) Cerebral infarction: Status: Acute Code(s): I63.9 - Cerebral infarction, unspecified Assessment and Plan: 60 years old woman with a relatively uncontrolled hypertension admitted in hospital for psychiatric symptoms more specifically anxiety and suicidal ideation and with history of excessive water intake resulting in hyponatremia. Her noncontrast head CT revealed a left basal ganglia hypodensity, chronic ischemic infarction, likely related to hypertension. Her examination was nonfocal. At this time mainstay of management is blood pressure control, anti-platelet agent and checking her lipid profile. Being of [place] origin, there was also possibility of intracranial vascular disease, common in this patient population. I would suggest obtaining a CTA of brain and neck to review her cerebral and carotid vasculature. Assessment and Plan: Ct plan. Check Na I spent minutes with the patient and/or on the patient floor today, greater than?50% of which was spent counseling/coordinating care. Reason for contiued inpatient stay Substantial Risk for: med/psych decompensation
[2021-02-15 17:51] VITALS: BP 143/65; PULSE 68; RESP 18; TEMP 36.4; O2SAT 99
[2021-02-15 20:40] VITALS: BP 199/96; PULSE 84
[2021-02-15] MEDS: Mirtazapine 7.5 MG TABLET PO (20:40)
[2021-02-15] MEDS: cloNIDine HCL 0.1 MG TABLET PO (20:40)
[2021-02-15 22:01] VITALS: BP 147/72; PULSE 82
[2021-02-16 06:00] VITALS: BP 169/83; PULSE 91
[2021-02-16] MEDS: Thiamine HCL 100 MG TABLET PO (08:58)
[2021-02-16] MEDS: Atorvastatin Calcium 10 MG TABLET PO (08:58)
[2021-02-16] MEDS: Sodium Chloride Tab 1 GM TABLET PO ×2 (08:58→20:48)
[2021-02-16] MEDS: Aspirin 81 MG TAB.CHEW PO (08:58)
[2021-02-16] MEDS: Escitalopram Oxalate 10 MG TABLET PO ×2 (08:58→17:20)
[2021-02-16] MEDS: amLODIPine Besylate 5 MG TABLET PO (08:58)
[2021-02-16] MEDS: Folic Acid 1 MG TABLET PO (08:58)
[2021-02-16 09:12] LABS: Sodium 134 mmol/L (135-145)
--- NOTE | 2021-02-16 10:46 | HO.PSYCHPN ---
Subjective Subjective Date of Service: 02/16/21 Reason For Visit: Generalized Anxiety Disorder Interim History: feel less confused, more able to answer questions. Patient says she feels less depressed and denies any SI; anxiety is also a little better. Patient agrees to adding clonidine scheduled for high blood pressure and will see her outpatient doctor for follow-up. Also agrees to increasing Lexapro for continued depression and anxiety as she used to be on citalopram 40 mg. Patient said it was unnecessary to lock the door that she never drink from the faucet or took extra water that was allowed. Diagnostics Vital Signs (24Hr): Vital Signs - 24 hr 02/15/21 17:51 02/15/21 20:40 02/15/21 22:01 Temperature 97.5 F Pulse Rate 68 84 82 Respiratory Rate 18 Blood Pressure 143/65 H 199/96 H 147/72 H Pulse Oximetry 99 02/16/21 06:00 Temperature Pulse Rate 91 Respiratory Rate Blood Pressure 169/83 H Pulse Oximetry BMI result Body Mass Index 20.0 Labs Results: 02/16/21 07:51 Labs: Laboratory Results - last 48 hr 02/15/21 02/16/21 06:44 07:51 Sodium 134 L 134 L Potassium 4.0 Chloride 100 Carbon Dioxide 27 Anion Gap 11 L Imaging Radiology Impressions: ITS Impressions Head CT 02/13/21 11:39 IMPRESSION: Left basal ganglia pulmonary infarct of uncertain age. Otherwise unremarkable exam. Medications Medications Current Medications Acetaminophen (Acetaminophen 325 Mg Tablet) 650 mg PO Q6H PRN PRN Reason: Headache/Pain Mild Scale (1-3) Al Hydroxide/Mg Hydroxide (Magnesium Hydrox/Alum Hydrox 30 Ml Oral.Susp) 30 ml PO Q6H PRN PRN Reason: Heartburn/Nausea Amlodipine Besylate (Amlodipine Besylate 5 Mg Tablet) 5 mg PO DAILY [facility]; Protocol Last Admin: 02/16/21 08:58 Dose: 5 mg Documented by: Aspirin (Aspirin 81 Mg Tab.Chew) 81 mg PO DAILY [facility] Last Admin: 02/16/21 08:58 Dose: 81 mg Documented by: Atorvastatin Calcium (Atorvastatin Calcium 10 Mg Tablet) 10 mg PO DAILY [facility] Last Admin: 02/16/21 08:58 Dose: 10 mg Documented by: Clonidine HCl (Clonidine Hcl 0.1 Mg Tablet) 0.1 mg PO BEDTIME [facility]; Protocol Last Admin: 02/15/21 20:40 Dose: 0.1 mg Documented by: Clonidine HCl (Clonidine Hcl 0.1 Mg Tablet) 0.05 mg PO BID PRN; Protocol PRN Reason: mild anxiety (try before ativan) Last Admin: 02/14/21 08:12 Dose: 0.05 mg Documented by: Escitalopram Oxalate (Escitalopram Oxalate 10 Mg Tablet) 10 mg PO DAILY [facility] Last Admin: 02/16/21 08:58 Dose: 10 mg Documented by: Folic Acid (Folic Acid 1 Mg Tablet) 1 mg PO DAILY [facility] Last Admin: 02/16/21 08:58 Dose: 1 mg Documented by: Lorazepam (Lorazepam 1 Mg Tablet) 1 mg PO BID PRN PRN Reason: severe anxiety Magnesium Hydroxide (Milk Of Magnesia 30 Ml Oral.Susp) 30 ml PO DAILY PRN PRN Reason: Constipation Mirtazapine (Mirtazapine 7.5 Mg Tablet) 7.5 mg PO BEDTIME [facility] Last Admin: 02/15/21 20:40 Dose: 7.5 mg Documented by: Saliva Substitute (Dry Mouth [employer] 60 Ml [employer]) 1 spray MUCOUS MEM Q2H PRN PRN Reason: Dry Mouth Last Admin: 02/13/21 16:10 Dose: 1 spray Documented by: Sodium Chloride (Sodium Chloride Tab 1 Gm Tablet) 1 gm PO BID [facility] Last Admin: 02/16/21 08:58 Dose: 1 gm Documented by: Thiamine HCl (Thiamine Hcl 100 Mg Tablet) 100 mg PO DAILY [facility] Last Admin: 02/16/21 08:58 Dose: 100 mg Documented by: Trazodone HCl (Trazodone Hcl 100 Mg Tablet) 100 mg PO BEDTIME PRN PRN Reason: insomnia Trazodone HCl (Trazodone Hcl 50 Mg Tablet) 50 mg PO BEDTIME PRN PRN Reason: continued Insomnia Allergies Allergies Allergy/AdvReac Type Severity Reaction Status Date / Time No Known Allergies Allergy Verified 02/10/21 17:16 Assessment & Plan Assessment & Plan (1) Cerebral infarction: Status: Acute Code(s): I63.9 - Cerebral infarction, unspecified Assessment and Plan: 60 years old woman with a relatively uncontrolled hypertension admitted in hospital for psychiatric symptoms more specifically anxiety and suicidal ideation and with history of excessive water intake resulting in hyponatremia. Her noncontrast head CT revealed a left basal ganglia hypodensity, chronic ischemic infarction, likely related to hypertension. Her examination was nonfocal. At this time mainstay of management is blood pressure control, anti-platelet agent and checking her lipid profile. Being of [place] origin, there was also possibility of intracranial vascular disease, common in this patient population. I would suggest obtaining a CTA of brain and neck to review her cerebral and carotid vasculature. Assessment and Plan: Patient is a 60-year-old female with history of severe anxiety, formally well treated with citalopram until it caused hyponatremia.? She was admitted to for worsening anxiety that triggered suicidal ideation.? Patient was drinking water excessively, developed hyponatremia and was transferred to the medical floor for treatment.? Patient's sodium return to normal and she was return to for continued treatment.? Initially it was thought that patient developed hyponatremia due to citalopram, however today her came in and reviewed with technical publications writer discharge paperwork from her past hospitalizations for hyponatremia.? Patient's reports and patient fully agrees that patient tolerated citalopram for 16 years without any problems.? When she 1st got hyponatremia in May 2019 it resulted from her drinking excessive amounts of celery juice for few weeks, which caused her to have chronic diarrhea, become dehydrated, thirsty and then by drinking copious amounts of water.? During this admission there is no indication that citalopram was the cause and she? remained on citalopram for the next year.? In June 2020 she had a bout of severe anxiety which she reports and her concurs that she again started drinking copious amounts of water resulting in a her being hospitalized and treated for hyponatremia.? There was some concern that perhaps citalopram was causing her to have a dry mouth, which was causing her to drink excessive fluid so citalopram was tapered off.? She was started on Latuda which seemed to be both ineffective and problematic though not clear how so and her anxiety increased until she was hospitalized at [facility] this past January 2021.? Her Latuda, hydroxyzine and Benadryl were all discontinued.? She was started on Wellbutrin, trazodone and BuSpar however the Wellbutrin aggravated her anxiety and she ended up admitted at [facility].? Patient was started on mirtazapine however because she continued to drink copious amounts of water developed hyponatremia.? There was some question of whether or not this could be due to medication as well however Policy Value Calculator discussed case with Hollie Salomon, who was covering patient on medical floor who agreed that current bout of hyponatremia was most likely due to polydipsia and that it was very reasonable to retry mirtazapine.? Underwriting Sales Representative also commented hyponatremia most likely due to excessive water intake.? Given collateral provided by patient's , it seems very unlikely that citalopram was the cause of her hyponatremia or even the cause of her dry mouth; since this medication treated patient's anxiety for years, patient agrees to restart (agrees to substitute escitalopram for now).? Patient reports that she is still very anxious and depressed and had suicidal thoughts , wanting to .? She denies any SI on admission.? Will continue to monitor for hyponatremia as medications are restarted.? Given the fact that patients anxiety triggers both depression and suicidality, the risks of not treating her symptoms are weighty; the potential benefit of restarting citalopram/escitalopram outweighs the potential risk of causing hyponatremia (especially since pt is in hospital and monitored).? Virtually all other medications indicated for patients symptoms have some risk of causing hyponatremia and since citalopram has been effective in the past, will start with a re-trial of this medication.? Patient understands the risks of medication regimen; she agrees with this reasoning and with this plan and agrees to move forward with current medication regimen 02/11Sodium and electrolytes within normal limits Patient denies SI and says that she is doing little better however she remains anxious.? Will try clonidine for anxiety 02/12 Patient reports feeling sluggish tired and dizzy.? She did have some balance issues when she stood up.? Question whether balance is due to orthostatic hypotension being tired from insomnia Intermittent trouble breathing in or out seems to be more likely due to combination of insomnia, anxiety However patient is a college graduate and 60 years old and from collateral she is more confused and this is not her baseline.? Policy Value Calculator called hospitalist Dr. Erwin to assess and who examined patient and ruled out concern for stroke and said that there is no imminent need for imaging however that head CT might help once other lab work ruled out. 02/13 Patient reports that she had a good sleep last night; no AVH.? Feels a little better.? However sodium lowered a little bit to 133; restricting water to 1.5 pictures per day and repeat labs tomorrow provided collateral that says patient is not at baseline but that her confusion seemed to start this past spring Patient reports feeling a little better, less confused, less anxious and less depressed; no SI. She said she has trouble sleeping last night and agrees to schedule trazodone. Denies any return of AVH. Agrees to increase Lexapro PLAN: Patient on CV Q 15 minute checks Schedule Trazodone 50mg increased lexapro to 20mg scheduled clonidine 0.1mg BID for htn; discussed with patient will follow up with outpatient provider Discussed case with Dr. Sullivan neurologist recommended that patient follow-up with Neurology appointment post discharge, that imaging is not urgent and that findings will more likely explain things but not change current treatment. He reported to technical publications writer that he is now currently ambivalent about whether or not she needs MRI or for additional CTA. He thinks that patient's confusion during this admission was most likely due to hyponatremia and even though labs have resolved her some residual confusion. He thinks it is very unlikely that history of hyponatremia was due to citalopram. He also explained that incidental neurological finding is likely due to not well controlled hypertension. Hyponatremia?: Remains stable; most likely due to to polydipsia and less likely medication related plan: RESTRIcT Fluids to 2 pitchers per day Na: wnl; still monitoring started on Sodium Chloride tabs BID Confusion:? Seems to be resolving: Due to Insomnia?? Residual delirium from hyponatremia? [place] says seems to have started this past spring -No signs of infection; no history of substance abuse; blood sugar unremarkable -no neurological deficits -labs wnl: B12, folate, RPR, TSH, calcium, other electrolytes within normal limits; -UA no signs of infection -Orthostatics obtained and unremarkable -EKG 02/12 NSR (pending floral design teacher review) denies any falls or head trauma in recent or remote past PLAN: -Dr. Erwin who has ruled out emergent stroke or need for MRI/cerebellar MRI however vascular dementia consideration -Head CT:?Left basal ganglia pulmonary infarct of uncertain age.? Discussed with? Dr. Erwin? who agrees It is possible this could be contributory however uncertain age could also mean years ago; she recs Neuro consult -Neurology Consult placed Anxiety/depression: Improving Increase Lexapro to 20 mg (substituted for citalopram; patient used to be on citalopram 40 mg) Patient remains on Mirtazapine 7.5mg for help w/ sleep and anxiety/depression; if Lexapro significantly improves mood may discontinue mirtazapine Clonidine 0.5mg BID prn for anxiety Patient refuses Ativan Auditory hallucination: Resolved reports AH at bedtime saying that's what you get... which she says started this admission Not sure if mood congruent; not sure when this started Hypnogogic visual hallucination present continue to monitor Insomnia: Improving Restarted trazodone at 50 mg Continue Mirtazapine 7.5mg for help w/ sleep and anxiety/depression Continue Clondine 0.1mg at bedtime HTN: discussed BP with Zora SORTO who recommends leaving antihypertensive at current dose Head CT:Date of Service: 02/13/21 CT HEAD WITHOUT CONTRAST FINDINGS: There is no evidence of an extra-axial collection. There is no evidence of intra-axial or extra-axial hemorrhage. The ventricles and extra-axial CSF spaces are appropriate. Pierre-white matter differentiation is normal. There is a left basal ganglia lacunar infarct of uncertain age. No other infarct, mass or mass effect is seen. Review at bone windows is normal. Visualized paranasal sinuses, mastoid air cells and middle ears are clear. 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 Otherwise unremarkable exam. Lilia Colin MD I spent minutes with the patient and/or on the patient floor today, greater than?50% of which was spent counseling/coordinating care. Reason for contiued inpatient stay Substantial Risk for: med/psych decompensation
[2021-02-16 18:00] VITALS: BP 125/70; PULSE 80; TEMP 36.8
[2021-02-16 20:48] VITALS: BP 148/68; PULSE 80
[2021-02-16] MEDS: Mirtazapine 7.5 MG TABLET PO (20:48)
[2021-02-16] MEDS: traZODone HCL 50 MG TABLET PO (20:48)
[2021-02-16] MEDS: cloNIDine HCL 0.1 MG TABLET PO (20:48)
[2021-02-17 06:00] VITALS: BP 122/57; PULSE 77; RESP 16; TEMP 36.8; O2SAT 97
[2021-02-17 08:29] VITALS: BP 123/63; PULSE 87
[2021-02-17] MEDS: amLODIPine Besylate 5 MG TABLET PO (08:29)
[2021-02-17] MEDS: Sodium Chloride Tab 1 GM TABLET PO ×2 (08:29→20:18)
[2021-02-17] MEDS: Folic Acid 1 MG TABLET PO (08:29)
[2021-02-17] MEDS: Aspirin 81 MG TAB.CHEW PO (08:29)
[2021-02-17] MEDS: Thiamine HCL 100 MG TABLET PO (08:29)
[2021-02-17] MEDS: Escitalopram Oxalate 20 MG TABLET PO (08:29)
[2021-02-17 08:30] VITALS: BP 123/63; PULSE 87
[2021-02-17] MEDS: Atorvastatin Calcium 10 MG TABLET PO (08:30)
[2021-02-17] MEDS: cloNIDine HCL 0.1 MG TABLET PO ×2 (08:30→20:18)
--- NOTE | 2021-02-17 10:47 | HO.PSYCHPN ---
Subjective Subjective Date of Service: 02/17/21 Reason For Visit: Generalized Anxiety Disorder Interim History: pt says her mood is a little better; no SI; no AVH. Pt said she slept last night. She continues to report she feels less confused, especially when she wares her glasses. tolerating meds well; says getting used to limiting water intake however her mouth is still dry. Mental Status Exam Mental Status Exam Narrative: ?Pt is alert and oriented; behavior is cooperative, calm; dressed in hospital gown with green sweater jacket, hair neatly pulled back; adequate hygiene; mood is described as little better. and affect congruent; eye contact appropriate; Speech is normal rate, volume and prosody and not pressured; no psychomotor agitation/retardation present; thought process is goal directed, linear and logical; some repeated questions but less so; Thought content is on treatment and how she's feeling; denies SI/ HI; denies AVH and no hypnogogic visual images; No delusional content, paranoid ideations or grandiosity; Patients insight and judgment are fair. Diagnostics Vital Signs (24Hr): Vital Signs - 24 hr 02/16/21 18:00 02/16/21 20:48 02/17/21 06:00 Temperature 98.2 F 98.3 F Pulse Rate 80 80 77 Respiratory Rate 16 Blood Pressure 125/70 148/68 H 122/57 L Pulse Oximetry 97 02/17/21 08:29 02/17/21 08:30 Temperature Pulse Rate 87 87 Respiratory Rate Blood Pressure 123/63 123/63 Pulse Oximetry BMI result Body Mass Index 20.0 Labs Results: 02/18/21 11:27 Labs: Laboratory Results - last 48 hr 02/16/21 07:51 Sodium 134 L Imaging Radiology Impressions: ITS Impressions Head CT 02/13/21 11:39 IMPRESSION: Left basal ganglia pulmonary infarct of uncertain age. Otherwise unremarkable exam. Medications Medications Current Medications Acetaminophen (Acetaminophen 325 Mg Tablet) 650 mg PO Q6H PRN PRN Reason: Headache/Pain Mild Scale (1-3) Al Hydroxide/Mg Hydroxide (Magnesium Hydrox/Alum Hydrox 30 Ml Oral.Susp) 30 ml PO Q6H PRN PRN Reason: Heartburn/Nausea Amlodipine Besylate (Amlodipine Besylate 5 Mg Tablet) 5 mg PO DAILY [facility]; Protocol Last Admin: 02/17/21 08:29 Dose: 5 mg Documented by: Aspirin (Aspirin 81 Mg Tab.Chew) 81 mg PO DAILY [facility] Last Admin: 02/17/21 08:29 Dose: 81 mg Documented by: Atorvastatin Calcium (Atorvastatin Calcium 10 Mg Tablet) 10 mg PO DAILY [facility] Last Admin: 02/17/21 08:30 Dose: 10 mg Documented by: Clonidine HCl (Clonidine Hcl 0.1 Mg Tablet) 0.05 mg PO BID PRN; Protocol PRN Reason: mild anxiety (try before ativan) Last Admin: 02/14/21 08:12 Dose: 0.05 mg Documented by: Clonidine HCl (Clonidine Hcl 0.1 Mg Tablet) 0.1 mg PO BID [facility]; Protocol Last Admin: 02/17/21 08:30 Dose: 0.1 mg Documented by: Escitalopram Oxalate (Escitalopram Oxalate 20 Mg Tablet) 20 mg PO DAILY [facility] Last Admin: 02/17/21 08:29 Dose: 20 mg Documented by: Folic Acid (Folic Acid 1 Mg Tablet) 1 mg PO DAILY [facility] Last Admin: 02/17/21 08:29 Dose: 1 mg Documented by: Magnesium Hydroxide (Milk Of Magnesia 30 Ml Oral.Susp) 30 ml PO DAILY PRN PRN Reason: Constipation Mirtazapine (Mirtazapine 7.5 Mg Tablet) 7.5 mg PO BEDTIME [facility] Last Admin: 02/16/21 20:48 Dose: 7.5 mg Documented by: Saliva Substitute (Dry Mouth [place] 60 Ml [place]) 1 spray MUCOUS MEM Q2H PRN PRN Reason: Dry Mouth Last Admin: 02/13/21 16:10 Dose: 1 spray Documented by: Sodium Chloride (Sodium Chloride Tab 1 Gm Tablet) 1 gm PO BID [facility] Last Admin: 02/17/21 08:29 Dose: 1 gm Documented by: Thiamine HCl (Thiamine Hcl 100 Mg Tablet) 100 mg PO DAILY [facility] Last Admin: 02/17/21 08:29 Dose: 100 mg Documented by: Trazodone HCl (Trazodone Hcl 50 Mg Tablet) 50 mg PO BEDTIME PRN PRN Reason: continued Insomnia Trazodone HCl (Trazodone Hcl 50 Mg Tablet) 50 mg PO BEDTIME [facility] Last Admin: 02/16/21 20:48 Dose: 50 mg Documented by: Allergies Allergies Allergy/AdvReac Type Severity Reaction Status Date / Time No Known Allergies Allergy Verified 02/10/21 17:16 Assessment & Plan Assessment & Plan (1) Cerebral infarction: Status: Acute Code(s): I63.9 - Cerebral infarction, unspecified Assessment and Plan: 60 years old woman with a relatively uncontrolled hypertension admitted in hospital for psychiatric symptoms more specifically anxiety and suicidal ideation and with history of excessive water intake resulting in hyponatremia. Her noncontrast head CT revealed a left basal ganglia hypodensity, chronic ischemic infarction, likely related to hypertension. Her examination was nonfocal. At this time mainstay of management is blood pressure control, anti-platelet agent and checking her lipid profile. Being of [place] origin, there was also possibility of intracranial vascular disease, common in this patient population. I would suggest obtaining a CTA of brain and neck to review her cerebral and carotid vasculature. Assessment and Plan: Patient is a 60-year-old female with history of severe anxiety, formally well treated with citalopram until it caused hyponatremia.? She was admitted to for worsening anxiety that triggered suicidal ideation.? Patient was drinking water excessively, developed hyponatremia and was transferred to the medical floor for treatment.? Patient's sodium return to normal and she was return to for continued treatment.? Initially it was thought that patient developed hyponatremia due to citalopram, however today her came in and reviewed with verse writer discharge paperwork from her past hospitalizations for hyponatremia.? Patient's reports and patient fully agrees that patient tolerated citalopram for 16 years without any problems.? When she 1st got hyponatremia in May 2019 it resulted from her drinking excessive amounts of celery juice for few weeks, which caused her to have chronic diarrhea, become dehydrated, thirsty and then by drinking copious amounts of water.? During this admission there is no indication that citalopram was the cause and she? remained on citalopram for the next year.? In June 2020 she had a bout of severe anxiety which she reports and her concurs that she again started drinking copious amounts of water resulting in a her being hospitalized and treated for hyponatremia.? There was some concern that perhaps citalopram was causing her to have a dry mouth, which was causing her to drink excessive fluid so citalopram was tapered off.? She was started on Latuda which seemed to be both ineffective and problematic though not clear how so and her anxiety increased until she was hospitalized at [facility] this past January 2021.? Her Latuda, hydroxyzine and Benadryl were all discontinued.? She was started on Wellbutrin, trazodone and BuSpar however the Wellbutrin aggravated her anxiety and she ended up admitted at [facility].? Patient was started on mirtazapine however because she continued to drink copious amounts of water developed hyponatremia.? There was some question of whether or not this could be due to medication as well however [employer] discussed case with Hollie Salomon, who was covering patient on medical floor who agreed that current bout of hyponatremia was most likely due to polydipsia and that it was very reasonable to retry mirtazapine.? [employer] Sp[employer] Straightener also commented hyponatremia most likely due to excessive water intake.? Given collateral provided by patient's , it seems very unlikely that citalopram was the cause of her hyponatremia or even the cause of her dry mouth; since this medication treated patient's anxiety for years, patient agrees to restart (agrees to substitute escitalopram for now).? Patient reports that she is still very anxious and depressed and had suicidal thoughts , wanting to .? She denies any SI on admission.? Will continue to monitor for hyponatremia as medications are restarted.? Given the fact that patients anxiety triggers both depression and suicidality, the risks of not treating her symptoms are weighty; the potential benefit of restarting citalopram/escitalopram outweighs the potential risk of causing hyponatremia (especially since pt is in hospital and monitored).? Virtually all other medications indicated for patients symptoms have some risk of causing hyponatremia and since citalopram has been effective in the past, will start with a re-trial of this medication.? Patient understands the risks of medication regimen; she agrees with this reasoning and with this plan and agrees to move forward with current medication regimen -verse writer discussed neurologic findings on head CT with Dr. Sullivan, neurology consult. Dr. Sullivan says that there is no urgency for additional follow-up imaging and it can be done as an outpatient; he reports he has overall low concern. He thinks that it is very unlikely hyponatremia was medication induced. 02/11Sodium and electrolytes within normal limits Patient denies SI and says that she is doing little better however she remains anxious.? Will try clonidine for anxiety 12/9 Patient reports feeling sluggish tired and dizzy.? She did have some balance issues when she stood up.? Question whether balance is due to orthostatic hypotension being tired from insomnia Intermittent trouble breathing in or out seems to be more likely due to combination of insomnia, anxiety However patient is a college graduate and 60 years old and from collateral she is more confused and this is not her baseline.? [employer] called hospitalist Dr. Erwin to assess and who examined patient and ruled out concern for stroke and said that there is no imminent need for imaging however that head CT might help once other lab work ruled out. 02/13 Patient reports that she had a good sleep last night; no AVH.? Feels a little better.? However sodium lowered a little bit to 133; restricting water to 1.5 pictures per day and repeat labs tomorrow provided collateral that says patient is not at baseline but that her confusion seemed to start this past spring Patient reports feeling a little better, less confused, less anxious and less depressed; no SI. She said she has trouble sleeping last night and agrees to schedule trazodone. Denies any return of AVH. Agrees to increase Lexapro remains improved, mood better, less anxious, less confused, no SI/AVH; sleeping better PLAN: Patient on CV Q 15 minute checks Schedule Trazodone 50mg increased lexapro to 20mg scheduled clonidine 0.1mg BID for htn; discussed with patient will follow up with outpatient provider Discussed case with Dr. Sullivan neurologist recommended that patient follow-up with Neurology appointment post discharge, that imaging is not urgent and that findings will more likely explain things but not change current treatment. He reported to verse writer that he is now currently ambivalent about whether or not she needs MRI or for additional CTA. He thinks that patient's confusion during this admission was most likely due to hyponatremia and even though labs have resolved her some residual confusion. He thinks it is very unlikely that history of hyponatremia was due to citalopram. He also explained that incidental neurological finding is likely due to not well controlled hypertension. Hyponatremia?: Remains stable; most likely due to to polydipsia and less likely medication related plan: RESTRIcT Fluids to 2 pitchers per day Na: wnl; still monitoring started on Sodium Chloride tabs BID Confusion:? Seems to be resolving: Due to Insomnia?? Residual delirium from hyponatremia? [place] says seems to have started this past spring -No signs of infection; no history of substance abuse; blood sugar unremarkable -no neurological deficits -labs wnl: B12, folate, RPR, TSH, calcium, other electrolytes within normal limits; -UA no signs of infection -Orthostatics obtained and unremarkable -EKG 02/12 NSR (pending student union consultant review) denies any falls or head trauma in recent or remote past PLAN: -Dr. Erwin who has ruled out emergent stroke or need for MRI/cerebellar MRI however vascular dementia consideration -Head CT:?Left basal ganglia pulmonary infarct of uncertain age.? Discussed with? Dr. Erwin? who agrees It is possible this could be contributory however uncertain age could also mean years ago; she recs Neuro consult -Neurology Consult placed Anxiety/depression: Improving Increase Lexapro to 20 mg (substituted for citalopram; patient used to be on citalopram 40 mg) Patient remains on Mirtazapine 7.5mg for help w/ sleep and anxiety/depression; if Lexapro significantly improves mood may discontinue mirtazapine Clonidine 0.5mg BID prn for anxiety Patient refuses Ativan Auditory hallucination: Resolved reports AH at bedtime saying that's what you get... which she says started this admission Not sure if mood congruent; not sure when this started Hypnogogic visual hallucination present continue to monitor Insomnia: Improving Restarted trazodone at 50 mg Continue Mirtazapine 7.5mg for help w/ sleep and anxiety/depression Continue Clondine 0.1mg at bedtime HTN: discussed BP with Zora SORTO who recommends leaving antihypertensive at current dose Head CT:Date of Service: 02/13/21 CT HEAD WITHOUT CONTRAST FINDINGS: There is no evidence of an extra-axial collection. There is no evidence of intra-axial or extra-axial hemorrhage. The ventricles and extra-axial CSF spaces are appropriate. Pierre-white matter differentiation is normal. There is a left basal ganglia lacunar infarct of uncertain age. No other infarct, mass or mass effect is seen. Review at bone windows is normal. Visualized paranasal sinuses, mastoid air cells and middle ears are clear. 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 Otherwise unremarkable exam. Lilia Colin MD I spent minutes with the patient and/or on the patient floor today, greater than?50% of which was spent counseling/coordinating care. Reason for contiued inpatient stay Substantial Risk for: stable for discharge
[2021-02-17 16:46] VITALS: BP 128/59; PULSE 69; RESP 16; TEMP 36.5; O2SAT 99
[2021-02-17 20:18] VITALS: BP 138/79; PULSE 79
[2021-02-17] MEDS: traZODone HCL 50 MG TABLET PO (20:18)
[2021-02-17] MEDS: Mirtazapine 7.5 MG TABLET PO (20:18)
[2021-02-18 08:17] VITALS: BP 131/69; PULSE 74
[2021-02-18] MEDS: Folic Acid 1 MG TABLET PO (08:17)
[2021-02-18] MEDS: cloNIDine HCL 0.1 MG TABLET PO ×2 (08:17→21:25)
[2021-02-18] MEDS: Sodium Chloride Tab 1 GM TABLET PO ×2 (08:17→21:24)
[2021-02-18] MEDS: Escitalopram Oxalate 20 MG TABLET PO (08:18)
[2021-02-18] MEDS: Atorvastatin Calcium 10 MG TABLET PO (08:18)
[2021-02-18] MEDS: Thiamine HCL 100 MG TABLET PO (08:18)
[2021-02-18] MEDS: amLODIPine Besylate 5 MG TABLET PO (08:18)
[2021-02-18] MEDS: Aspirin 81 MG TAB.CHEW PO (08:18)
[2021-02-18 08:58] VITALS: BP 131/61; PULSE 74; RESP 16; TEMP 36.4; O2SAT 98
--- NOTE | 2021-02-18 11:33 | P.PNPSI_ITS ---
Subjective Subjective Date of Service: 02/18/21 Reason For Visit: Generalized Anxiety Disorder Interim History: Patient says she struggle to sleep last night. present during meeting. Both confirm that patient has a long history of intermittent insomnia where 1 night she will sleep in another night she will not. Patient agrees to take additional trazodone as needed. Patient reports that her mood is better and anxiety much less. She denies any SI or AVH or HI and feels overall stable and ready for discharge. She agrees that her confusion is less. Her agrees that she is much better and ready to come home; he says that she is not quite back to baseline but is much improved and he feels good about her discharge. Zone Supervisor Firearms reviewed all medications, medication changes and medical issues addressed during this admission; pt and express understanding and will follow-up with with PCP Mental Status Exam Mental Status Exam Narrative: Pt is alert and oriented; behavior is cooperative, calm; dressed in hospital gown with green sweater jacket, hair neatly pulled back; adequate hygiene; mood is described as little better. and affect congruent; eye contact appropriate; Speech is normal rate, volume and prosody and not pressured; no psychomotor agitation/retardation present; thought process is goal directed, linear and logical; some repeated questions but less so; Thought content is on treatment and how she's feeling; denies SI/ HI; denies AVH and no hypnogogic visual images; No delusional content, paranoid ideations or grandiosity; Patients insight and judgment are fair. Diagnostics Vital Signs (24Hr): Vital Signs - 24 hr 02/17/21 16:46 02/17/21 20:18 02/18/21 08:17 Temperature 97.7 F Pulse Rate 69 79 74 Respiratory Rate 16 Blood Pressure 128/59 L 138/79 131/69 Pulse Oximetry 99 02/18/21 08:58 Temperature 97.6 F Pulse Rate 74 Respiratory Rate 16 Blood Pressure 131/61 Pulse Oximetry 98 BMI result Body Mass Index 20.0 Labs Results: 02/18/21 11:27 Imaging Radiology Impressions: ITS Impressions Head CT 02/13/21 11:39 IMPRESSION: Left basal ganglia pulmonary infarct of uncertain age. Otherwise unremarkable exam. Neurology Consult Dr. Sullivan 60 years old woman with a relatively uncontrolled hypertension admitted in hospital for psychiatric symptoms more specifically anxiety and suicidal ideation and with history of excessive water intake resulting in hyponatremia.? Her noncontrast head CT revealed a left basal ganglia hypodensity, chronic ischemic infarction, likely related to hypertension.? Her examination was nonfocal.? At this time mainstay of management is blood pressure control, anti- platelet agent and checking her lipid profile.? Being of [place] origin, there was also possibility of intracranial vascular disease, common in this patient population.? I would suggest obtaining a CTA of brain and neck to review her cerebral and carotid vasculature. Medications Medications Current Medications Acetaminophen (Acetaminophen 325 Mg Tablet) 650 mg PO Q6H PRN PRN Reason: Headache/Pain Mild Scale (1-3) Al Hydroxide/Mg Hydroxide (Magnesium Hydrox/Alum Hydrox 30 Ml Oral.Susp) 30 ml PO Q6H PRN PRN Reason: Heartburn/Nausea Amlodipine Besylate (Amlodipine Besylate 5 Mg Tablet) 5 mg PO DAILY [facility]; Protocol Last Admin: 02/18/21 08:18 Dose: 5 mg Documented by: Aspirin (Aspirin 81 Mg Tab.Chew) 81 mg PO DAILY [facility] Last Admin: 02/18/21 08:18 Dose: 81 mg Documented by: Atorvastatin Calcium (Atorvastatin Calcium 10 Mg Tablet) 10 mg PO DAILY [facility] Last Admin: 02/18/21 08:18 Dose: 10 mg Documented by: Clonidine HCl (Clonidine Hcl 0.1 Mg Tablet) 0.05 mg PO BID PRN; Protocol PRN Reason: mild anxiety (try before ativan) Last Admin: 02/14/21 08:12 Dose: 0.05 mg Documented by: Clonidine HCl (Clonidine Hcl 0.1 Mg Tablet) 0.1 mg PO BID [facility]; Protocol Last Admin: 02/18/21 08:17 Dose: 0.1 mg Documented by: Escitalopram Oxalate (Escitalopram Oxalate 20 Mg Tablet) 20 mg PO DAILY [facility] Last Admin: 02/18/21 08:18 Dose: 20 mg Documented by: Folic Acid (Folic Acid 1 Mg Tablet) 1 mg PO DAILY [facility] Last Admin: 02/18/21 08:17 Dose: 1 mg Documented by: Magnesium Hydroxide (Milk Of Magnesia 30 Ml Oral.Susp) 30 ml PO DAILY PRN PRN Reason: Constipation Mirtazapine (Mirtazapine 7.5 Mg Tablet) 7.5 mg PO BEDTIME [facility] Last Admin: 02/17/21 20:18 Dose: 7.5 mg Documented by: Saliva Substitute (Dry Mouth [place] 60 Ml [place]) 1 spray MUCOUS MEM Q2H PRN PRN Reason: Dry Mouth Last Admin: 02/13/21 16:10 Dose: 1 spray Documented by: Sodium Chloride (Sodium Chloride Tab 1 Gm Tablet) 1 gm PO BID [facility] Last Admin: 02/18/21 08:17 Dose: 1 gm Documented by: Thiamine HCl (Thiamine Hcl 100 Mg Tablet) 100 mg PO DAILY [facility] Last Admin: 02/18/21 08:18 Dose: 100 mg Documented by: Trazodone HCl (Trazodone Hcl 50 Mg Tablet) 50 mg PO BEDTIME PRN PRN Reason: continued Insomnia Trazodone HCl (Trazodone Hcl 100 Mg Tablet) 100 mg PO BEDTIME [facility] Allergies Allergies Allergy/AdvReac Type Severity Reaction Status Date / Time No Known Allergies Allergy Verified 02/10/21 17:16 Assessment & Plan Assessment & Plan (1) Cerebral infarction: Status: Acute Code(s): I63.9 - Cerebral infarction, unspecified Assessment and Plan: 60 years old woman with a relatively uncontrolled hypertension admitted in hospital for psychiatric symptoms more specifically anxiety and suicidal ideation and with history of excessive water intake resulting in hyponatremia. Her noncontrast head CT revealed a left basal ganglia hypodensity, chronic ischemic infarction, likely related to hypertension. Her examination was nonfocal. At this time mainstay of management is blood pressure control, anti- platelet agent and checking her lipid profile. Being of [place] origin, there was also possibility of intracranial vascular disease, common in this patient population. I would suggest obtaining a CTA of brain and neck to review her cerebral and carotid vasculature. Assessment and Plan: Patient is a 60-year-old female with history of severe anxiety, formally well treated with citalopram until it caused hyponatremia.? She was admitted to for worsening anxiety that triggered suicidal ideation.? Patient was drinking water excessively, developed hyponatremia and was transferred to the medical floor for treatment.? Patient's sodium return to normal and she was return to for continued treatment.? Initially it was thought that patient developed hyponatremia due to citalopram, however today her came in and reviewed with fiction writer discharge paperwork from her past hospitalizations for hyponatremia.? Patient's reports and patient fully agrees that patient tolerated citalopram for 16 years without any problems.? When she 1st got hyponatremia in May 2019 it resulted from her drinking excessive amounts of celery juice for few weeks, which caused her to have chronic diarrhea, become dehydrated, thirsty and then by drinking copious amounts of water.? During this admission there is no indication that citalopram was the cause and she? remained on citalopram for the next year.? In June 2020 she had a bout of severe anxiety which she reports and her concurs that she again started drinking copious amounts of water resulting in a her being hospitalized and treated for hyponatremia.? There was some concern that perhaps citalopram was causing her to have a dry mouth, which was causing her to drink excessive fluid so citalopram was tapered off.? She was started on Latuda which seemed to be both ineffective and problematic though not clear how so and her anxiety increased until she was hospitalized at [facility] this past January 2021.? Her Latuda, hydroxyzine and Benadryl were all discontinued.? She was started on Wellbutrin, trazodone and BuSpar however the Wellbutrin aggravated her anxiety and she ended up admitted at [place].? Patient was started on mirtazapine however because she continued to drink copious amounts of water developed hyponatremia.? There was some question of whether or not this could be due to medication as well however Zone Supervisor Firearms discussed case with Hollie Salomon, who was covering patient on medical floor who agreed that current bout of hyponatremia was most likely due to polydipsia and that it was very reasonable to retry mirtazapine.? Human Resources Leader also commented hyponatremia most likely due to excessive water intake.? Given collateral provided by patient's , it seems very unlikely that citalopram was the cause of her hyponatremia or even the cause of her dry mouth; since this medication treated patient's anxiety for years, patient agrees to restart (agrees to substitute escitalopram for now).? Patient reports that she is still very anxious and depressed and had suicidal thoughts , wanting to .? She denies any SI on admission.? Will continue to monitor for hyponatremia as medications are restarted.? Given the fact that patients anxiety triggers both depression and suicidality, the risks of not treating her symptoms are weighty; the potential benefit of restarting citalopram/escitalopram outweighs the potential risk of causing hyponatremia (especially since pt is in hospital and monitored).? Virtually all other medications indicated for patients symptoms have some risk of causing hyponatremia and since citalopram has been effective in the past, will start with a re-trial of this medication.? Patient understands the risks of medication regimen; she agrees with this reasoning and with this plan and agrees to move forward with current medication regimen -fiction writer discussed neurologic findings on head CT with Dr. Sullivan, neurology consult. Dr. Sullivan says that there is no urgency for additional follow-up imaging and it can be done as an outpatient; he reports he has overall low concern. He thinks that it is very unlikely hyponatremia was medication induced. 02/11Sodium and electrolytes within normal limits Patient denies SI and says that she is doing little better however she remains anxious.? Will try clonidine for anxiety 02/12 Patient reports feeling sluggish tired and dizzy.? She did have some balance issues when she stood up.? Question whether balance is due to orthostatic hypotension being tired from insomnia Intermittent trouble breathing in or out seems to be more likely due to combination of insomnia, anxiety However patient is a college graduate and 60 years old and from collateral she is more confused and this is not her baseline.? Zone Supervisor Firearms called hospitalist Dr. Erwin to assess and who examined patient and ruled out concern for stroke and said that there is no imminent need for imaging however that head CT might help once other lab work ruled out. 02/13 Patient reports that she had a good sleep last night; no AVH.? Feels a little better.? However sodium lowered a little bit to 133; restricting water to 1.5 pictures per day and repeat labs tomorrow provided collateral that says patient is not at baseline but that her confusion seemed to start this past spring Patient reports feeling a little better, less confused, less anxious and less depressed; no SI. She said she has trouble sleeping last night and agrees to schedule trazodone. Denies any return of AVH. Agrees to increase Lexapro remains improved, mood better, less anxious, less confused, no SI/AVH; sleeping better Reports poor sleep last night; patient's meets with fiction writer and patient and both patient and agree that patient has chronically intermittent insomnia for years where sometimes she will sleep through the night and other times she will struggle sleeping regardless of medication; patient agrees that she will sometimes need a low dose of trazodone and other times will need a higher dose. Overall patient remains with low depression and less anxiety. She denies any SI/HI or AVH. She feels confusion is better. Her says that she is much better and though not quite back to her baseline is getting close. He and patient both feel she is stable and ready for discharge to come home. Zone Supervisor Firearms reviewed patient's medical history that was relevant during this admission including reviewing medications and med changes, hypertension, hyponatremia and head CT findings. and patient understood information and will follow up with patient's outpatient provider. PLAN: Patient on CV Q 15 minute checks Schedule Trazodone 50mg increased lexapro to 20mg scheduled clonidine 0.1mg BID for htn; discussed with patient will follow up with outpatient provider Discussed case with Dr. Sullivan neurologist recommended that patient follow-up with Neurology appointment post discharge, that imaging is not urgent and that findings will more likely explain things but not change current treatment. He reported to fiction writer that he is now currently ambivalent about whether or not she needs MRI or for additional CTA. He thinks that patient's confusion during this admission was most likely due to hyponatremia and even though labs have resolved her some residual confusion. He thinks it is very unlikely that history of hyponatremia was due to citalopram. He also explained that incidental neurological finding is likely due to not well controlled hypertension. Hyponatremia?: Remains stable; most likely due to to polydipsia and less likely medication related plan: RESTRIcT Fluids to 2 pitchers per day Na: wnl; still monitoring started on Sodium Chloride tabs BID Confusion:? Seems to be resolving: Due to Insomnia?? Residual delirium from hyponatremia? [place] says seems to have started this past spring -No signs of infection; no history of substance abuse; blood sugar unremarkable -no neurological deficits -labs wnl: B12, folate, RPR, TSH, calcium, other electrolytes within normal limits; -UA no signs of infection -Orthostatics obtained and unremarkable -EKG 02/12 NSR (pending neon technician review) denies any falls or head trauma in recent or remote past PLAN: -Dr. Erwin who has ruled out emergent stroke or need for MRI/cerebellar MRI however vascular dementia consideration -Head CT:?Left basal ganglia pulmonary infarct of uncertain age.? Discussed with? Dr. Erwin? who agrees It is possible this could be contributory however uncertain age could also mean years ago; she recs Neuro consult -Neurology Consult placed Anxiety/depression: Improving Increase Lexapro to 20 mg (substituted for citalopram; patient used to be on citalopram 40 mg) Patient remains on Mirtazapine 7.5mg for help w/ sleep and anxiety/depression; if Lexapro significantly improves mood may discontinue mirtazapine Clonidine 0.5mg BID prn for anxiety Patient refuses Ativan Auditory hallucination: Resolved reports AH at bedtime saying that's what you get... which she says started this admission Not sure if mood congruent; not sure when this started Hypnogogic visual hallucination present continue to monitor Insomnia: Improving Restarted trazodone at 50 mg Continue Mirtazapine 7.5mg for help w/ sleep and anxiety/depression Continue Clondine 0.1mg at bedtime HTN: discussed BP with Zora SORTO who recommends leaving antihypertensive at current dose Head CT:Date of Service: 02/13/21 CT HEAD WITHOUT CONTRAST FINDINGS: There is no evidence of an extra-axial collection. There is no evidence of intra-axial or extra-axial hemorrhage. The ventricles and extra-axial CSF spaces are appropriate. Pierre-white matter differentiation is normal. There is a left basal ganglia lacunar infarct of uncertain age. No other infarct, mass or mass effect is seen. Review at bone windows is normal. Visualized paranasal sinuses, mastoid air cells and middle ears are clear. 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 Otherwise unremarkable exam. Lilia Colin MD I spent minutes with the patient and/or on the patient floor today, greater than?50% of which was spent counseling/coordinating care. Reason for contiued inpatient stay Substantial Risk for: stable for discharge
[2021-02-18 12:00] LABS: Anion Gap 12 (12-20); Carbon Dioxide 27 mmol/L (22-29); Chloride 101 mmol/L (96-108); Potassium 4.1 mmol/L (3.3-5.1); Sodium 136 mmol/L (135-145)
[2021-02-18 20:58] LABS: COVID-19 Test Negative (Negative); IDNOW Serial# 55D5AD1C
[2021-02-18 21:10] VITALS: BP 158/87; PULSE 84; TEMP 36.4
[2021-02-18] MEDS: traZODone HCL 100 MG TABLET PO (21:24)
[2021-02-18] MEDS: Mirtazapine 7.5 MG TABLET PO (21:24)
[2021-02-18 21:25] VITALS: BP 158/87; PULSE 84
[2021-02-19 06:15] VITALS: BP 160/73; PULSE 76; RESP 16; TEMP 36.3; O2SAT 99
[2021-02-19 09:02] VITALS: BP 141/76; PULSE 86; RESP 16
[2021-02-19 09:04] VITALS: BP 141/76; PULSE 86
[2021-02-19] MEDS: cloNIDine HCL 0.1 MG TABLET PO (09:04)
[2021-02-19 09:05] VITALS: PULSE 86
[2021-02-19] MEDS: Thiamine HCL 100 MG TABLET PO (09:05)
[2021-02-19] MEDS: Escitalopram Oxalate 20 MG TABLET PO (09:05)
[2021-02-19] MEDS: Atorvastatin Calcium 10 MG TABLET PO (09:05)
[2021-02-19] MEDS: amLODIPine Besylate 5 MG TABLET PO (09:05)
[2021-02-19] MEDS: Folic Acid 1 MG TABLET PO (09:05)
[2021-02-19] MEDS: Aspirin 81 MG TAB.CHEW PO (09:05)
[2021-02-19] MEDS: Sodium Chloride Tab 1 GM TABLET PO (09:05)
--- NOTE | 2021-02-19 09:22 | PM.PSYDC ---
DS: Providers Provider Date of Service: 02/19/21 Date of admission: 02/09/21 17:12 Date of discharge: 02/19/21 Primary care physician: Unknown Physician Attending physician on admission: Bob Dykes Consults: 02/09/21 20:12 Consult to Nephrology Routine Consulting Provider: Sergio Stephenson Reason for consultation: hyponatremia, sodium 121 Has provider been notified: No Consult to Psychiatry Routine Consulting Provider: Psych Covering Reason for consultation: management for anxiety Has provider been notified: No 02/12/21 12:13 Consult to Hospitalist Routine Consulting Provider: Hospitalist Reason For Exam: confusion, dizzy, ataxia? 02/13/21 14:50 Consult to Neurology Routine Consulting Provider: [facility] Reason for consultation: new onset confusion past few months Has provider been notified: No Attending physician on discharge: Bob Dykes DS: Diagnosis Discharge Diagnosis (1) LORENZO (generalized anxiety disorder): Status: Chronic (2) MDD (major depressive disorder): Status: Chronic (3) Cerebral infarction: Status: Acute (4) Hyponatremia: Status: Resolved (5) HTN (hypertension): Status: Resolved (6) HLD (hyperlipidemia): Status: Chronic DS: Medications Discharge Medications Home Medications: Previous Rx's Medication Instructions Recorded amlodipine 5 mg tablet 5 mg PO DAILY 30 Days #30 tab 02/19/21 aspirin 81 mg tablet,delayed 81 mg PO DAILY 30 Days #30 tab 02/19/21 release atorvastatin 10 mg tablet 10 mg PO DAILY 30 Days #30 tab 02/19/21 clonidine HCl 0.1 mg tablet 0.1 mg PO BID 30 Days #70 tab 02/19/21 escitalopram oxalate 20 mg tablet 20 mg PO DAILY 30 Days #30 tab 02/19/21 folic acid 1 mg tablet 1 mg PO DAILY 30 Days #30 tab 02/19/21 mirtazapine 7.5 mg tablet 7.5 mg PO BEDTIME 30 Days #30 tab 02/19/21 sodium chloride 1 gram tablet 1 g PO BID 30 Days #60 tab 02/19/21 thiamine mononitrate (vit B1) 100 100 mg PO DAILY 30 Days #30 tab 02/19/21 mg tablet trazodone 100 mg tablet 100 mg PO BEDTIME PRN 30 Days #45 02/19/21 tab Mental Status Exam Mental Status Exam Narrative: t is alert and oriented; behavior is cooperative, calm; dressed appropriately; hair neatly pulled back; adequate hygiene; mood is described as better...worried and affect congruent; eye contact appropriate; Speech is normal rate, volume and prosody and not pressured; no psychomotor agitation/retardation present; thought process is goal directed, linear and logical; some repeated questions but less so; Thought content is on treatment as outpatient and how she's feeling; denies SI/ HI; denies AVH and no hypnogogic visual images; No delusional content, paranoid ideations or grandiosity; Patients insight and judgment are fair. Data Data Completed and Pending Completed studies during hospitalization [Text1]: 02/12/21 02/12/21 02/13/21 12:34 12:47 07:55 Sodium 133 L Potassium 4.2 Chloride 96 Carbon Dioxide 28 Anion Gap 13 POC Glucose 119 H Vitamin B12 Folate TSH Urine Color STRAW Urine Appearance CLEAR Urine pH 6.5 Ur Specific [place] 1.015 Urine Protein NEG Urine Glucose (UA) NEG Urine Ketones NEG Urine Blood 1+ H Urine Nitrite NEG Ur Leukocyte Esterase TRACE H Urine RBC 1-4 Urine WBC 1-4 Ur Squamous Epith Cells 1+ Urine Bacteria TRACE T.pallidum Ab (EIA) COVID-19 (SASHA) COVID-Chairish 02/13/21 02/13/21 02/13/21 07:55 07:55 07:55 Sodium Potassium Chloride Carbon Dioxide Anion Gap POC Glucose Vitamin B12 1275 H Folate 18.4 TSH 1.42 Urine Color Urine Appearance Urine pH Ur Specific [place] Urine Protein Urine Glucose (UA) Urine Ketones Urine Blood Urine Nitrite Ur Leukocyte Esterase Urine RBC Urine WBC Ur Squamous Epith Cells Urine Bacteria T.pallidum Ab (EIA) Nonreactive COVID-19 (SASHA) COVID-Chairish 02/14/21 02/15/21 02/16/21 07:42 06:44 07:51 Sodium 131 L 134 L 134 L Potassium 4.2 4.0 Chloride 95 L 100 Carbon Dioxide 26 27 Anion Gap 14 11 L POC Glucose Vitamin B12 Folate TSH Urine Color Urine Appearance Urine pH Ur Specific [place] Urine Protein Urine Glucose (UA) Urine Ketones Urine Blood Urine Nitrite Ur Leukocyte Esterase Urine RBC Urine WBC Ur Squamous Epith Cells Urine Bacteria T.pallidum Ab (EIA) COVID-19 (SASHA) COVIDGradible (formerly gradsavers) 12/15/21 12/15/21 11:27 20:01 Sodium 136 Potassium 4.1 Chloride 101 Carbon Dioxide 27 Anion Gap 12 POC Glucose Vitamin B12 Folate TSH Urine Color Urine Appearance Urine pH Ur Specific [place] Urine Protein Urine Glucose (UA) Urine Ketones Urine Blood Urine Nitrite Ur Leukocyte Esterase Urine RBC Urine WBC Ur Squamous Epith Cells Urine Bacteria T.pallidum Ab (EIA) COVID-19 (SASHA) Negative COVID-19 Clin Com See Note 02/12/21 Unknown Urine clean catch - Urine pierre top Urine Culture - Final No growth. Imaging Diagnostic Imaging Impressions Head CT 02/13/21 11:39 CT HEAD WITHOUT CONTRAST FINDINGS: There is no evidence of an extra-axial collection. There is no evidence of intra-axial or extra-axial hemorrhage. The ventricles and extra-axial CSF spaces are appropriate. Pierre-white matter differentiation is normal. There is a left basal ganglia lacunar infarct of uncertain age. No other infarct, mass or mass effect is seen. Review at bone windows is normal. Visualized paranasal sinuses, mastoid air cells and middle ears are clear. 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 Otherwise unremarkable exam. Lilia Colin MD Cardiology Testing Patient: Farzaneh Linda MR#: [id number] : 1960 Acct:[id number] Age/Sex: 60 / F ADM Date: 02/09/21 Loc: .PM5 516-1 Ordering Physician: Bob Dykes MD Date of Service: 02/12/21 Procedure(s): ECG 12 lead EKG Accession Number(s): [id number] Test Reason : chest pressure Blood Pressure : / mmHG Vent. Rate : 076 BPM ? ? Atrial Rate : 076 BPM ?? P-R Int : 154 ms? QRS Dur : 078 ms ? ? QT Int : 402 ms ? ? ? P-R-T Axes : 064 031 037 degrees ?? QTc Int : 452 ms ? Normal sinus rhythm Normal ECG No previous ECGs available Electronically Signed By:Angelo Zavala Dictated By:Angelo Zavala MD Signed By: <Electronically signed by Angelo Zavala MD in [place] 02/13/212050 DS: Summary Hospital Course Hospital Course: Initial Admission: Patient is a 60-year-old female with history of severe anxiety, formally well treated with citalopram with history of excessive water intake resulting in hyponatremia; Citalopram was discontinued due to concern was that citalopram caused dry mouth resulting in patient feeling thirsty and thus excessively drinking water.? After some med trials (see below) she was started on Wellbutrin which aggrevated her anxiety; patient's anxiety worsened and she felt suicidal prompting this admission. She was admitted to for worsening anxiety that triggered suicidal ideation.? On admission she was depressed and anxious but suicidality was waning. On the unit, Patient started on mirtazapine however because she continued to drink copious amounts of water developed hyponatremia for which she was treated on medical floor.?Patient was fluid restricted, sodium returned to normal and she was return to for continued treatment.? RELEVANT IMMEDIATE HISTORY influencing treatment on the unit: As mentioned above, Initially it was thought that patient developed hyponatremia due to citalopram, however her came in and reviewed with advertising copy writer discharge paperwork from her past hospitalizations for hyponatremia.? -Patient's reports and patient fully agrees that patient tolerated citalopram for 16 years without any problems.? -When she 1st got hyponatremia in May 2019 it resulted from her drinking excessive amounts of celery juice for few weeks, which caused her to have chronic diarrhea, become dehydrated, thirsty and then by drinking copious amounts of water.? During that admission there was no indication that citalopram was the cause and she? remained on citalopram for the next year.? -In June 2020 she had a bout of severe anxiety which she reports and her concurs that she again started drinking copious amounts of water resulting in a her being hospitalized and treated for hyponatremia.? There was some concern that perhaps citalopram was causing her to have a dry mouth, which was causing her to drink excessive fluid so citalopram was tapered off.? -She was started on Latuda which seemed to be both ineffective and problematic (though not clear how so) and her anxiety increased. ? -Hospitalized at [facility] this past January 2021. Her Latuda, hydroxyzine and Benadryl were all discontinued.? She was started on Wellbutrin, trazodone and BuSpar -however the Wellbutrin aggravated her anxiety and she ended up admitted to THIS admission at [place] M[facility]. ?Back on M5 having resolved hyponatremia, treatment options discussed. Since Citalopram had treated her severe anxiety for years, Patient agreed to restart Escitalopram (agrees to substitute escitalopram for now since no Citalopram on formulary).? Patient reports that she is still very anxious and depressed and had suicidal thoughts , wanting to .? She also shared having intermittent auditory hallucinations but her description of this was vague. The fact that patients anxiety triggers both depression and suicidality, the risks of not treating her symptoms are weighty; the potential benefit of restarting citalopram/escitalopram outweighs the potential risk of causing hyponatremia (especially since pt is in hospital and monitored).? Virtually all other medications indicated for patients symptoms have some risk of causing hyponatremia and since citalopram has been effective in the past, will start with a re-trial of this medication.? Additionally, the collateral provided by patient's , further makes it seem very unlikely that citalopram was the cause of her hyponatremia (or even the cause of her dry mouth). Patient understands the risks of medication regimen; she agrees with this reasoning and with this plan and agrees to move forward with current medication regimen -started on Lexapro; Sodium did drop a little and hovered at just below low normal. -Patient was started and continued on Sodium Chloride PO and remained on Fluid restriction (which was eventually discontinued) and going forward, sodium remained WNL. -patient's depression resolved and SI fully resolved and remained so. AVH fully resolved and remained so. Her anxiety was lessened though it did remain -during admission patient seemed to be somewhat confused; -MOCA screened positive; unclear if it was some residual delirium from hyponatremia; her said he felt she had become a little more confused since this past June. Workup unremarkable -head CT done ?Left basal ganglia pulmonary infarct of uncertain age. Neurology consulted and advertising copy writer discussed case with Dr. Sullivan who reported to advertising copy writer that there is no urgency for additional follow-up imaging but might consider CTA of brain and neck or MRI as an outpatient; he reports that findings will more likely explain things but not change current treatment; this was discussed with patient and her who agree to follow up with outpt providers. -Patient struggled with insomnia; she was re-started on Mirtazapine 7.5mg for help w/ sleep and anxiety/depression; also Restarted trazodone at 50 mg -Also scheduled Clonidine 0.1mg BID for hypertension and for bedtime anxiety -Over subsequent days, paitents mood remained improved, mood better an she reported feeling less anxious and less confused; SI/AVH remained resolved and patient said she was sleeping better with intermittent insomnia. Patient felt ready to discharge maintaining that confusion was better, mood better and anxiety significantly lessened and tolerable. Patient's also felt that she was close to her baseline and also ready to come home. Management Manager meet with patient and her who both agree that patient has chronically intermittent insomnia for years where sometimes she will sleep through the night and other times she will struggle sleeping regardless of medication; patient agrees that she will sometimes need a low dose of trazodone and other times will need a higher dose.?She denies any SI/HI or AVH.? Management Manager reviewed patient's medical history that was relevant during this admission including reviewing medications and med changes, hypertension, hyponatremia and head CT findings.? and patient understood information and will follow up with patient's outpatient provider. Patient was not in imminent risk of harm to self or others and returns to her supportive with outpatient appointments established. Patient's request for discharge honored. Management Manager and patient discussed and patient agreed to limit her p.o. intake going forward Correction: Patient on simvastatin (not atorvastatin) which was discussed with pt/ and corrected Head CT:Date of Service: 02/13/21 CT HEAD WITHOUT CONTRAST FINDINGS: There is no evidence of an extra-axial collection. There is no evidence of intra-axial or extra-axial hemorrhage. The ventricles and extra-axial CSF spaces are appropriate. Pierre-white matter differentiation is normal. There is a left basal ganglia lacunar infarct of uncertain age. No other infarct, mass or mass effect is seen. Review at bone windows is normal. Visualized paranasal sinuses, mastoid air cells and middle ears are clear. 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 Otherwise unremarkable exam. Lilia Colin MD Time spent discussing smoking cessation with patient: 3 to 10 minutes Status at Discharge Functional status at discharge: independent ambulation Overall status at discharge: patient is progressing back to baseline Time Spent with Patient Time attestation: Total time spent providing and/or coordinating discharge services: Time spent: Greater than 30 minutes Discharge Plan Discharge Patient Disposition: Home, Self-Care Discharge Diagnosis: Generalized anxiety disorder Referrals: Veronica Milan (therapy) [Other] - 02/24/21 1:00 pm (This is a Telehealth appointment. Veronica will call your cell phone at the time of the appointment) Aide Her (psychiatry) [Other] - 03/19/21 10:00 am (This is a virtual Telehealth appointment. You will be emailed a Zoom link to connect to the virtual appointment) Aide Her (psychiatry) [Other] - 04/14/21 10:20 am (This is a virtual Telehealth appointment) Jamie Reyes DO, MD [Physician] - 03/09/21 1:30 pm (IN OFFICE) Discharge Medications: New clonidine HCl 0.1 mg Tablet 0.1 mg PO BID 30 Days Qty: 70 RF: 1 escitalopram oxalate 20 mg Tablet 20 mg PO DAILY 30 Days Qty: 30 RF: 1 mirtazapine 7.5 mg Tablet 7.5 mg PO BEDTIME 30 Days Qty: 30 RF: 1 trazodone 100 mg Tablet 100 mg PO BEDTIME PRN (Reason: insomnia) 30 Days Qty: 45 RF: 1 sodium chloride 1 gram Tablet 1 g PO BID 30 Days Qty: 60 RF: 1 simvastatin 10 mg tablet 10 mg PO DAILY Qty: 30 RF: 0 Continued amlodipine 5 mg Tablet 5 mg PO DAILY 30 Days Qty: 30 RF: 1 thiamine mononitrate (vit B1) 100 mg Tablet 100 mg PO DAILY 30 Days Qty: 30 RF: 1 Changed aspirin 81 mg tablet,delayed release (DR/EC) 81 mg PO DAILY 30 Days Qty: 30 RF: 1 folic acid 1 mg tablet 1 mg PO DAILY 30 Days Qty: 30 RF: 1 Discontinued buspirone 5 mg tablet 1 tab PO BID RF: 0 trazodone 50 mg tablet 1 tab PO BEDTIME RF: 0 atorvastatin 10 mg Tablet 10 mg PO DAILY RF: 0 hydroxyzine pamoate 50 mg Capsule 50 mg PO BID PRN (Reason: Anxiety) RF: 0 diphenhydramine HCl [Benadryl] 25 mg Capsule 25 mg PO BEDTIME PRN (Reason: Anxiety) RF: 0 buspirone 10 mg Tablet 10 mg PO BID RF: 0 Discharge Orders: Discharge Order (Routine); Ordered 02/19/21 Ordered By: Bob Dykes Diet: regular diet Activity on Discharge: As tolerated Stand Alone Forms: Patient Portal Discharge page, Community Support Care Plan Goals: Maintain mood and safe behaviors Take medications as prescribed Practice coping skills Continue with outpatient providers and reach out to them as needed Health Concerns: 1. Mood stability and behaviors 2. Hyponatremia ...evaluated by Nephrology.? Seems like hyponatremia secondary to hypotonic euvolemic hyponatremia related to excessive free water intake.? Possibly medication related.? 3. Hypertension Started on Clonidine 0.1mg BID 4. High Cholesterol 5. Hx of Cerebral Infarction Head CT 02/13/21 11:39 IMPRESSION: Left basal ganglia pulmonary infarct of uncertain age. Otherwise unremarkable exam. Neurology Consult Dr. Sullivan 60 years old woman with a relatively uncontrolled hypertension admitted in hospital for psychiatric symptoms more specifically anxiety and suicidal ideation and with history of excessive water intake resulting in hyponatremia.? Her noncontrast head CT revealed a left basal ganglia hypodensity, chronic ischemic infarction, likely related to hypertension.? Her examination was nonfocal.? At this time mainstay of management is blood pressure control, anti-platelet agent and checking her lipid profile.? Being of [place] origin, there was also possibility of intracranial vascular disease, common in this patient population.? I would suggest obtaining a CTA of brain and neck to review her cerebral and carotid vasculature. Plan of Treatment: Follow up with your PCP, psychiatric provider and other outpatient providers regarding above concerns Take medications as prescribed Assessment: Risk assessment at time of discharge:? Patient was interviewed prior to discharge and found to be fully oriented and without any SI or HI. Patient has insight and demonstrates good judgment in terms of wanting to pursue treatment. Patient is not in imminent risk of harm to self or others and has a safety plan that includes presenting to the closest ER or calling 911 if feeling unsafe.? Patient has been observed closely by nursing and unit staff throughout admission; patient has not engaged in any behaviors that suggest dangerousness to self or others and has demonstrated appropriate behaviors and impulse control Discharge Date/Time: 02/19/21 11:50
== END 2021-02-19 11:50 | disposition home or self-care (01) | DRG 754 ==
PROVIDERS: Clinical Nurse Specialist Psychiatric/Mental Health, Adult; Physician Assistant Medical; Psychiatry & Neurology Psychiatry; Admitting Provider Psychiatry & Neurology Psychiatry; Visit Provider Psychiatry & Neurology Psychiatry
DX: F32.9 Major depressive disorder, single episode, unspecified (principal); R45.851 Suicidal ideations; E87.1 Hypo-osmolality and hyponatremia; I10 Essential (primary) hypertension; R44.0 Auditory hallucinations; G47.00 Insomnia, unspecified; F41.1 Generalized anxiety disorder; E78.5 Hyperlipidemia, unspecified; Z20.822 Contact with and (suspected) exposure to COVID-19; Z86.73 Personal history of transient ischemic attack (TIA), and cerebral infarction without residual deficits; Z87.891 Personal history of nicotine dependence; Z79.82 Long term (current) use of aspirin; Z79.899 Other long term (current) drug therapy
CPT/HCPCS: 36415; 70450; 80051; 81001; 82607; 82746; 82947; 84295; 84443; 86780; 87086; 87635; 93005

== ENCOUNTER 2024-04-05 02:21 | Emergency (ER) | payer BC, SELFPAY ==
--- NOTE | ~2024-04-05 | US_ITS ---
EXAMINATION: US PELVIS TRANSABDOMINAL AND TRANSVAGINAL HISTORY: abdo pain, left adnexal lesion on CT COMPARISON: Correlation is made with a CT of the pelvis with contrast performed earlier in the day.. TECHNIQUE: Transabdominal and endovaginal real-time 2D acosta-scale ultrasound was performed. FINDINGS: Uterus: The uterus is normal in size, measuring 6.6 x 3.3 x 5.0 cm. Myometrium has a normal echotexture. Multiple fibroids are noted including a posterior fibroid on the right measuring 1.5 x 1.2 x 1.5 cm, an anterior fibroid on the left measuring 0.9 x 0.5 x 0.7 cm, and an anterior uterine body fibroid on the left measuring 2.1 x 1.8 x 2.4 cm. Endometrium: The endometrial stripe measures 4 mm in thickness. Right ovary: The right ovary measures 1.5 x 1.5 x 1.0 cm. The right ovary is normal in size and echotexture. Left ovary: The left ovary is not identified. Pelvic fluid: none. US/US pelvic and transvaginal IMPRESSION: The left ovary is not identified. There is a 2.1 x 1.8 x 2.4 cm anterior fibroid on the left which likely corresponds to the abnormality seen on CT. Electronically signed by: Kaushal Escobar MD 04/05/2024 09:37 AM [facility]
--- NOTE | ~2024-04-05 | CT_ITS ---
CLINICAL HISTORY: diffuse abdo pain and tendenrss CT abdomen and pelvis with contrast Comparison: CT - CT ABDOMEN PELVIS W IV CON - 04/05/24 05:49 EST Findings: No consolidation or effusion. Unremarkable gallbladder and solid organs. No urolithiasis. No bowel obstruction, pneumoperitoneum, or pneumatosis. There is a 2.4 cm solid lesion in the left adnexal region contiguous with the uterus. No acute fracture. There is severe degenerative disc disease at the L4-5 level with grade 1 spondylolisthesis and relatively severe central spinal stenosis. A 9 mm cyst or hemangioma is seen adjacent to the falciform ligament. IMPRESSION: 1. No acute findings. 2. 2.4 cm solid left adnexal lesion contiguous with the uterus. Please correlate with pelvic sonography. 3. Severe degenerative disc disease L4-5 with grade 1 spondylolisthesis and severe central spinal stenosis. This document has been electronically signed by: Abrahan Rueda MD on 04/05/2024 07:08:42
[2024-04-05 02:32] VITALS: BP 154/93; PULSE 94; RESP 16; TEMP 36.8; O2SAT 100; BMI 21.7
[2024-04-05 03:55] LABS: MANUAL DIFF FLAG NO
[2024-04-05 03:56] LABS: Appearance Urine Clear; Color Urine Yellow; Glucose Urine UA Negative (Negative); Leukocyte Esterase Urine Small (1+) (Negative); Nitrite Urine Negative (Negative); PH 5.5 (5.0-9.0); Specific Gravity - Urine 1.025 (1.005-1.025); UMIC TRIGGER UACC YES; Urine Blood Moderate (2+) (Negative); Urine Ketones 15 mg/dL (Negative); Urine Protein Trace mg/dL (Neg-Trace)
[2024-04-05 04:04] LABS: Basophils Percent Auto 0.1 % (0-2); Eosinophils Absolute Auto 0.1 X10*3/uL (0.0-0.4); Eosinophils Percent Auto 0.7 % (0-4); Hematocrit 39.5 % (37.0-47.0); Hemoglobin 13.6 g/dl (12.0-16.0); Imm Gran Abs Auto 0.04 X10*3/uL (0.00-0.03); Imm Gran Pct Auto 0.4 % (0.0-0.4); Lymphocytes Absolute Auto 1.8 X10*3/uL (1.2-4.9); Lymphocytes Percent Auto 19.9 % (20-40); Mean Corpuscular HGB Conc 34.4 g/dl (31.0-35.0); Mean Corpuscular Hemoglobin 30.3 pg (27.0-33.0); Mean Platelet Volume 13.3 fL (9.4-12.3); Monocytes Percent Auto 10.5 % (2-11); Neutrophils Absolute Auto 6.2 x10*3/uL (2.0-8.3); Neutrophils Percent Auto 68.4 % (45-73); Platelet Count 183 X10*3/uL (160-400); Red Blood Count 4.49 X10*6/uL (4.20-5.50); Red Cell Distribution Width 13.1 % (11.0-16.0)
[2024-04-05 04:09] LABS: Bacteria Urine 2+ (None Seen); Hyaline Casts Urine 0-2 /LPF (0-2); UACC Culture Trigger YES
[2024-04-05 04:18] LABS: Alanine Aminotransferase 32 U/L (0-31); Albumin Level 4.7 g/dL (3.5-5.0); Alkaline Phosphatase 67 U/L (39-117); Anion Gap 17 (12-20); Aspartate Amino Transferase 26 U/L (5-31); Bilirubin Total 0.7 mg/dL (0.0-1.0); Blood Urea Nitrogen 19 mg/dL (9-16); Calcium 9.4 mg/dL (8.4-10.2); Carbon Dioxide 20 mmol/L (22-29); Chloride 103 mmol/L (96-108); Creatinine Clr Calc Pharmacy 61.9; Estimated Glomerular Filt Rate > 60; Glucose Random 109 mg/dL (60-115); Lipase 25 U/L (8-78); Potassium 3.6 mmol/L (3.3-5.1); Sodium 136 mmol/L (135-145); Total Protein 7.7 g/dL (6.5-8.0)
[2024-04-05 04:47] VITALS: BP 134/75; PULSE 89; RESP 17; O2SAT 98
--- NOTE | 2024-04-05 05:01 | ED.GENADULT ---
HPI - General Adult General Chief complaint: Abdominal Pain Stated complaint: abd pain Time Seen by Provider: 04/05/24 05:01 History of Present Illness ED Provider: Karley PHAM narrative: The patient is a 63-year-old female who comes to the emergency room because of abdominal pain that has been bothering her since yesterday. Patient has a history of problems with hyponatremia which I think are largely related to anxiety and other psychogenic causes. She has been hospitalized at this hospital and at [facility] for hyponatremia in the past. Related Data Previous Rx's ?Medication ?Instructions ?Recorded amlodipine 5 mg tablet 5 mg PO DAILY 30 days #30 tabs 02/19/21 aspirin 81 mg tablet,delayed 81 mg PO DAILY 30 days #30 tabs 02/19/21 release clonidine HCl 0.1 mg tablet 0.1 mg PO BID HTN 30 days #70 tabs 02/19/21 escitalopram oxalate 20 mg tablet 20 mg PO DAILY 30 days #30 tabs 02/19/21 folic acid 1 mg tablet 1 mg PO DAILY 30 days #30 tabs 02/19/21 mirtazapine 7.5 mg tablet 7.5 mg PO BEDTIME 30 days #30 tabs 02/19/21 simvastatin 10 mg tablet 10 mg PO DAILY #30 tabs 02/19/21 sodium chloride 1 gram tablet 1 g PO BID 30 days #60 tabs 02/19/21 thiamine mononitrate (vit B1) 100 100 mg PO DAILY 30 days #30 tabs 02/19/21 mg tablet trazodone 100 mg tablet 100 mg PO BEDTIME PRN insomnia 30 02/19/21 days #45 tabs omeprazole 40 mg capsule,delayed 40 mg PO DAILY #30 caps 04/05/24 release Allergies Allergy/AdvReac Type Severity Reaction Status Date / Time No Known Allergies Allergy Verified 04/05/24 02:35 Review of Systems Review of Systems: Yes all other systems are reviewed and are negative FOR[facility]LY [facility] Past Medical History Medical History (Updated 04/06/24 @ 00:00 by Rufus Hilliard) Stroke (cerebrum) MDD (major depressive disorder) LORENZO (generalized anxiety disorder) Spinal stenosis Hyponatremia HLD (hyperlipidemia) HTN (hypertension) Surgical History H/O cervical spine surgery Family History Family History Mother CVA (cerebral vascular accident) Social History Social History Household Members: Spouse Housing: House Do you presently have visiting nurse or other home services: No Alcohol intake: never Patient Tobacco Use Status: Former Tobacco user Tobacco use type: Cigarette e-Cigarette/Vaping Use: Never Used Second Hand Smoke Exposure: No service: No Current occupational status: disabled Sexual orientation: Did not discuss Physical Exam ED Vital Signs: Vital Signs - 24 hr 04/05/24 02:32 04/05/24 04:47 04/05/24 06:00 Temperature 98.3 F 98.1 F Pulse Rate 94 89 77 Respiratory Rate 16 17 17 Blood Pressure 154/93 H 134/75 135/87 Pulse Oximetry 100 98 96 Oxygen Delivery Method Room Air Room Air Room Air 04/05/24 08:26 Temperature Pulse Rate 73 Respiratory Rate 16 Blood Pressure 135/61 Pulse Oximetry 100 Oxygen Delivery Method Room Air BMI result Body Mass Index 21.7 Const Other: The patient was awake and alert. She seemed acutely uncomfortable. She seemed to be curled up in a ball because of discomfort and seemed to be having waves of discomfort. She had a somewhat unusual affect. HENMT Other: Face is symmetrical. Mucous membranes moist. Eyes General: appearance normal, both eyes and all related structures Pupils: Equal, round and reactive pupils present EOM: EOMs intact bilaterally Neck Neck: Yes full ROM Resp Effort & Inspection: normal respiratory effort Auscultation: clear to auscultation bilaterally Cardio Rate: regular rate Rhythm: regular rhythm Heart sounds: S1 normal heart sound present and S2 normal heart sound present GI Other: The patient's abdomen is flat and seemed fairly soft. She was complaining of a great deal of pain but she did not seem remarkably tender. General: Yes no CVA tenderness Back/Spine/Pelvis Back: no CVA tenderness Skin Other: Skin was dry and unremarkable Neuro Other: The patient was awake and was seemingly restless with discomfort. She seemed distracted by her discomfort to the point where she seemed somewhat confused. Cranial nerves were intact. She moves her extremities symmetrically. No focal findings. Later the patient seemed much more coherent when her pain was better. Cranial nerves: Yes Equal, round and reactive pupils present Extrem Other: No peripheral edema. No calf swelling or tenderness. Medications Administered Discontinued Medications Generic Name Dose Route Start Last Admin Trade Name Claritza PRN Reason Stop Dose Admin Diphenhydramine HCl 25 mg 04/05/24 05:16 04/05/24 05:28 Diphenhydramine Hcl 50 Mg/Ml Vial IVPUSH 04/05/24 05:17 25 mg ONCE ONE Administration Sodium Chloride 1,000 mls @ 999 mls/hr 04/05/24 05:30 04/05/24 09:14 Ns IV 04/05/24 06:30 Infused .Q1H1M GENET Infusion Iohexol 85 ml 04/05/24 05:56 04/05/24 05:56 Iohexol 350 Mg/Ml 100 Ml Infus..Btl IV 04/05/24 05:57 85 ml ONCE ONE Administration Ketorolac Tromethamine 10 mg 04/05/24 05:15 04/05/24 05:27 Ketorolac Tromethamine 15 Mg/Ml Vial IVPUSH 04/05/24 05:16 10 mg ONCE ONE Administration Medical Decision Making Medical Decision Making [facility] Narrative: The patient is a 63-year-old female presents with abdominal pain that started yesterday. No associated diarrhea. There has been some nausea and vomiting. The patient has a history of episodes of hyponatremia secondary to excess water drinking. On my 1st exam I felt the patient seemed to have a very strange affect. She was given ketorolac for pain. Given her degree of apparent discomfort I ordered a CT scan of the abdomen and pelvis as well as laboratory testing. The patient's sodium is normal today. Other labs are unremarkable. A CT of the abdomen and pelvis showed no definite acute findings but did show a calcification near the left uterus with a recommendation for an ultrasound. An ultrasound was obtained as well which suggested the CT finding is related to a uterine fibroid. The patient seemed to feel much better after a dose of ketorolac and IV fluids. Her mental status seemed much more coherent. The patient and her were both reassured that she was not hyponatremic. I felt she looks well enough for discharge. Lab Data 04/05/24 03:49 04/05/24 03:49 Labs: Lab Results 04/05/24 Range/Units 03:49 WBC 9.0 (4.8-10.8) X10*3/uL RBC 4.49 (4.20-5.50) X10*6/uL Hgb 13.6 (12.0-16.0) g/dl Hct 39.5 (37.0-47.0) % MCV 88.0 (80.0-98.0) fL MCH 30.3 (27.0-33.0) pg MCHC 34.4 (31.0-35.0) g/dl RDW 13.1 (11.0-16.0) % Plt Count 183 (160-400) X10*3/uL MPV 13.3 H (9.4-12.3) fL Immature Gran % (Auto) 0.4 (0.0-0.4) % Neut % (Auto) 68.4 (45-73) % Lymph % (Auto) 19.9 L (20-40) % [place] % (Auto) 10.5 (2-11) % Eos % (Auto) 0.7 (0-4) % Baso % (Auto) 0.1 (0-2) % Lymph # (Auto) 1.8 (1.2-4.9) X10*3/uL [place] # (Auto) 1.0 (0.1-1.2) X10*3/uL Eos # (Auto) 0.1 (0.0-0.4) X10*3/uL Baso # (Auto) 0.0 (0.0-0.2) X10*3/uL Abs Immat Gran (auto) 0.04 H (0.00-0.03) X10*3/uL Absolute Neuts (auto) 6.2 (2.0-8.3) x10*3/uL Absolute Nucleated RBC 0.000 (0.0-0.012) X10*3/uL Nucleated RBC % (auto) 0.0 (0.0-0.2) /100WBC Sodium 136 (135-145) mmol/L Potassium 3.6 (3.3-5.1) mmol/L Chloride 103 (96-108) mmol/L Carbon Dioxide 20 L (22-29) mmol/L Anion Gap 17 (12-20) BUN 19 H (9-16) mg/dL Creatinine 0.72 (0.5-1.4) mg/dL Estim Creat Clear Calc 61.9 Estimated GFR > 60 Random Glucose 109 (60-115) mg/dL Calcium 9.4 (8.4-10.2) mg/dL Total Bilirubin 0.7 (0.0-1.0) mg/dL AST 26 (5-31) U/L ALT 32 H (0-31) U/L Alkaline Phosphatase 67 (39-117) U/L C-Reactive Protein 0.29 (< or = 0.50) mg/dL Total Protein 7.7 (6.5-8.0) g/dL Albumin 4.7 (3.5-5.0) g/dL Lipase 25 (8-78) U/L Urine Color Yellow Urine Appearance Clear Urine pH 5.5 (5.0-9.0) Ur Specific [place] 1.025 (1.005-1.025) Urine Protein Trace (Neg-Trace) mg/dL Urine Glucose (UA) Negative (Negative) mg/dL Urine Ketones 15 (Negative) mg/dL Urine Blood Moderate (2+) H (Negative) Urine Nitrite Negative (Negative) Ur Leukocyte Esterase Small (1+) H (Negative) Urine RBC 3-5 H (0-2) /HPF Urine WBC 6-10 H (0-5) /HPF Ur Squamous Epith Cells 6-10 (0-2) /HPF Urine Bacteria 2+ (None Seen) Hyaline Casts 0-2 (0-2) /LPF Discharge Plan Discharge Clinical Impression: Abdominal pain Patient Disposition: Home, Self-Care Additional Instructions: Your testing today does not reveal any dangerous process at work. You have a fibroid in her uterus but this is not a dangerous condition. It is possible the symptoms you were experiencing could be related to a stomach acid problems. It might be reasonable for you to take an acid reducing medication. I am sending a prescription for medication called omeprazole to your pharmacy which you should take daily for awhile and see if you find it helpful. Please plan on following up soon with your regular doctor. Return to the emergency department if worse. Prescriptions: New omeprazole 40 mg capsule,delayed release(DR/EC) 40 mg PO DAILY Qty: 30 0RF No Action clonidine HCl 0.1 mg Tablet 0.1 mg PO BID 30 Days Qty: 70 1RF Protocol: Hold for SBP< HOLD for SBP < : 90 Rx Instructions: may take 1/2 tab daily as needed for anxiety escitalopram oxalate 20 mg Tablet 20 mg PO DAILY 30 Days Qty: 30 1RF mirtazapine 7.5 mg Tablet 7.5 mg PO BEDTIME 30 Days Qty: 30 1RF trazodone 100 mg Tablet 100 mg PO BEDTIME PRN (Reason: insomnia) 30 Days Qty: 45 1RF Rx Instructions: may take an addtional 1/2 tab at bedtime as needed for continued insomnia sodium chloride 1 gram Tablet 1 g PO BID 30 Days Qty: 60 1RF amlodipine 5 mg Tablet 5 mg PO DAILY 30 Days Qty: 30 1RF aspirin 81 mg tablet,delayed release (DR/EC) 81 mg PO DAILY 30 Days Qty: 30 1RF folic acid 1 mg tablet 1 mg PO DAILY 30 Days Qty: 30 1RF thiamine mononitrate (vit B1) 100 mg Tablet 100 mg PO DAILY 30 Days Qty: 30 1RF simvastatin 10 mg tablet 10 mg PO DAILY Qty: 30 0RF Referrals: Jamie Reyes DO, MD [Physician] - (Abdominal pain) Interventions: ED Discharge Assessment Last Done: 04/05/24 10:11 Discharge Date/Time: 04/05/24 10:40 Print Language: Lao
[2024-04-05 05:23] LABS: C Reactive Protein 0.29 mg/dL (< or = 0.50)
[2024-04-05] MEDS: Ketorolac Tromethamine 15 MG/ML VIAL 10 MG IVPUSH (05:27)
[2024-04-05] MEDS: 0.9 % Sodium Chloride 1,000 ML 999 ML IV (05:27)
[2024-04-05] MEDS: diphenhydrAMINE HCL 50 MG/ML VIAL 25 MG IVPUSH (05:28)
[2024-04-05] MEDS: iohexoL 350 MG/ML 100 ML INFUS..BTL 85 ML IV (05:56)
[2024-04-05 06:00] VITALS: BP 135/87; PULSE 77; RESP 17; TEMP 36.7; O2SAT 96
[2024-04-05 08:26] VITALS: BP 135/61; PULSE 73; RESP 16; O2SAT 100
--- NOTE | 2024-04-05 09:59 | PC.NURSE ---
patient to be discharged, called will come pick her up
[2024-04-05 10:11] VITALS: BP 135/61; PULSE 73; RESP 16; TEMP 36.6; O2SAT 100
[2024-04-05 10:20] VITALS: BP 131/63; PULSE 71; RESP 17; TEMP 36.6; O2SAT 96
== END 2024-04-05 10:40 | disposition home or self-care (01) ==
PROVIDERS: Emergency Provider Emergency Medicine
DX: R10.9 Unspecified abdominal pain (principal); R11.2 Nausea with vomiting, unspecified; D25.9 Leiomyoma of uterus, unspecified; I10 Essential (primary) hypertension; E78.5 Hyperlipidemia, unspecified; Z87.891 Personal history of nicotine dependence; Z79.899 Other long term (current) drug therapy; Z79.82 Long term (current) use of aspirin; Z79.02 Long term (current) use of antithrombotics/antiplatelets
CPT/HCPCS: 36415; 74177; 76830; 76856; 80053; 81001; 83690; 85025; 86140; 87086; 96361; 96374; 96375; 99285; J1200; J1885; Q9967

== ENCOUNTER → 2024-04-05 05:13 | Outpatient (BNV) | payer BC, SELFPAY | PROVIDERS: Emergency Provider Emergency Medicine; Visit Provider Radiology Diagnostic Radiology | DX: M51.360 Other intervertebral disc degeneration, lumbar region with discogenic back pain only (principal); M43.16 Spondylolisthesis, lumbar region; M48.061 Spinal stenosis, lumbar region without neurogenic claudication; R10.9 Unspecified abdominal pain | CPT/HCPCS: 74177; 76830; 76856 ==